=== PATIENT | female | born 1935 | race Caucasian/White ===

== ENCOUNTER 2016-10-18 06:29 | Day surgery (SDC) | payer MEDICARE, BC ==
[2016-10-13 13:28] VITALS: BMI 32.1
[~2016-10-18 06:29] MED LIST: LACTATED RINGERS 1,000 ML IV SCH
[2016-10-18 06:55] VITALS: RESP 16; TEMP 97.7
[2016-10-18] MEDS ORDERED: LIDOCAINE 1% 20 ML VIAL (10MG/ML) FOR IV START INTRADERMA ONE (07:03)
[2016-10-18 07:06] LABS: Glucose,Whole Blood 201 mg/dL (75-99)
[2016-10-18] MEDS ORDERED: TRIAMCINOLONE ACETONIDE 40 MG/ML 1 ML VIAL ONE (07:23)
[2016-10-18] MEDS ORDERED: BUPIVACAINE (PF) 0.5% 30 ML VIAL ONE (07:23)
[2016-10-18] MEDS ORDERED: MIDAZOLAM 2 MG/2 ML VIAL ONE (07:23)
[2016-10-18] MEDS ORDERED: fentaNYL (PF) 50 MCG/ML 2 ML AMP ONE (07:23)
--- NOTE | 2016-10-18 07:55 | FL ---
EXAMINATION TYPE: FL guided pain mgmt statistic DATE OF EXAM: 10/18/2016 7:51 AM HISTORY: Flouroscopy time 15 seconds of fluoroscopy provided. IMPRESSION: 1. Fluoroscopy time.
[2016-10-18] MEDS ORDERED: IV FLUID CONTINUATION 1,000 ML IV ONE (08:06)
[2016-10-18 08:12] VITALS: BP 145/86; PULSE 75
--- NOTE | 2016-10-18 09:06 | P.PCN ---
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 PROCEDURE DESCRIPTION: Patient presents for L3, L4 and L5 bilateral diagnostic medial branch blocks under fluoroscopic guidance. The procedure is performed using fluoroscopic guidance during needle placement to assure proper position and maximize safety. ANESTHESIA: Local with 1% lidocaine. Conscious sedation with Versed/fentanyl. EBL: Minimal PROCEDURE INDICATION: Patient with lumbar facet arthropathy signs and symptoms, here for diagnostic medial branch block. Pt does not take any blood thinning medications. PROCEDURE DESCRIPTION: The patient was seen and identified in the preoperative area. Risks, benefits, complications, and alternatives were discussed with the patient (including but not limited to incomplete pain relief, bleeding, infection, nerve damage, and allergies to medications), the patient agreed to proceed with the procedure and signed the consent after all questions were answered. Patient was taken to the OR and time out was completed to verify proper patient, position, laterality of pain, and allergies. Pt was placed in the prone position and a pillow was placed under the abdomen to reduce lumbar lordosis. The lumbosacral area was prepped and draped in the usual sterile fashion. Using oblique fluoroscopy, the eye of the "Elio dog" of right L4 vertebral body, which corresponds to the path of the medial branch originating from the level above, which is L3 in this case, was identified. Subsequently, a 22-gauge 3.5-inch spinal needle was inserted under fluoroscopic guidance toward the eye of the "Elio dog" of the right L4 vertebral body, corresponding to the junction of the superior articular process and the transverse process of the pedicle of the same level. After needle tip confirmation on lateral view and after negative aspiration for CSF and blood and without paresthesias, 1 mL of a 6 ml solution of 0.5% preservative-free bupivacaine and 40 mg Kenalog was injected. Subsequently the needle was withdrawn intact and the same procedure was repeated for the right L4, right L5, left L3, left L4, and left L5 medial branches which together with right L3 medial branch correspond to the sensory innervation of the bilateral L3-L4, L4-L5, and L5-S1 facet joints. Needle was withdrawn intact after each injection. At the end of the procedure, the skin was cleansed and bandages were applied. COMPLICATIONS: None. DISPOSITION/PLAN: The patient taken to the recovery area after the procedure in a stable condition for observation. Patient was reexamined prior to discharge and had >50 % relief of her back pain, but is now complaining of severe hip pain, and now gives history that this has worsened acutely over the course of the last two weeks without any inciting trauma, but given the level of her pain, I am concerned for possible hip fracture. Discussed situation with her daughter; I will discharge the patient from the outpatient recovery room and send her to the emergency room for further evaluation and possible imaging.
== END 2016-10-18 09:10 | disposition home or self-care (01) ==
LOC: ORPAIN 06:29
PROVIDERS: ATTEND Anesthesiology
DX: M47.816 Spondylosis without myelopathy or radiculopathy, lumbar region (principal); M47.817 Spondylosis without myelopathy or radiculopathy, lumbosacral region; M46.96 Unspecified inflammatory spondylopathy, lumbar region; M46.97 Unspecified inflammatory spondylopathy, lumbosacral region; E11.9 Type 2 diabetes mellitus without complications; Z79.82 Long term (current) use of aspirin; Z79.4 Long term (current) use of insulin; Z79.899 Other long term (current) drug therapy; Z91.09 Other allergy status, other than to drugs and biological substances
CPT/HCPCS: 96376; 96374; 96375; 99284; 36415; 93005; 72100; 73502; 64493; 64494; 64495; J2250; J2270; J3301; J3010

== ENCOUNTER 2016-10-18 09:12 | Emergency (ER) | payer MEDICARE, BC ==
[2016-10-18] MEDS ORDERED: MORPHINE SULFATE 4 MG/ML SYRINGE IV STA ×2 (10:54→13:04)
--- NOTE | 2016-10-18 11:51 | XR ---
EXAMINATION TYPE: XR Hip RT and AP Pelvis DATE OF EXAM: 10/18/2016 11:45 AM COMPARISON: NONE HISTORY: Pain TECHNIQUE: A single AP view of the pelvis is obtained. Two views of the right hip are obtained. FINDINGS: There is no acute fracture/dislocation evident in the pelvis. The hip and sacroiliac join ts appear symmetric and unremarkable. The overlying soft tissue appears unremarkable. Degenerative c hange of the spine noted. Vascular calcifications noted. Two views of right hip show no acute fracture or dislocation. No focal lytic or sclerotic lesion see n in the proximal right femur. The overlying soft tissue is unremarkable. Vascular calcifications an d arthropathy of the hips noted. IMPRESSION: 1. There is no acute fracture or dislocation in the pelvis or right hip. 2. Somewhat mottled pattern to the proximal femur. Correlate for history of malignancy. Follow-up bon e scan could be obtained in a short-term basis.
--- NOTE | 2016-10-18 11:53 | XR ---
EXAM TYPE: LUMBAR SPINE X RAY SERIES COMPARISON: NONE HISTORY: Pain FINDINGS: Severe degenerative disc disease at levels L3-S1 with minimal anterolisthesis of L3 and S1. Facet art hropathy noted. Mild to moderate degenerative disc disease L-1-L2 and L2-L3. Severe changes at T11-T1 2 and T12-L1. Pedicles intact. Vascular calcifications noted. Calcifications in right upper quadrant of the abdomen may represent gallstones. IMPRESSION: 1. Severe multilevel degenerative disc disease. Consider MRI follow-up. 2. Correlate for gallstones.
--- NOTE | 2016-10-18 11:55 | ED ---
General Adult HPI - General Chief complaint: Extremity Problem,Nontraumatic Stated complaint: PAIN, RADIATING BOTH LEGS, RT HIP PAIN Time Seen by Provider: 10/18/16 09:50 Source: patient, RN notes reviewed Mode of arrival: wheelchair Limitations: no limitations - History of Present Illness Initial comments: Patient a 1-year-old female with significant past medical history for chronic back pain, who presents emergency room today for the pain clinic with a chief complaint of increased pain to her lower back radiating to the right hip. She does admit that pain radiates all the way down the right leg than her toes. She admits that she also has pain radiating to the left posterior thigh at times. She states she's had some difficulty going to bathroom because of the pain. She states she had injections done earlier today at the pain clinic was advised come here for evaluation of her right hip. She states pain radiates rate into the right hip is worse with certain movements. Patient states she's been using Tylenol at home for pain with little relief in symptoms persist injections don't seem to be helping much at this time. She denies any bowel or bladder incontinence or retention. She denies any saddle anesthesia. Patient denies any recent fever, chills, shortness of breath, chest pain, abdominal pain , nausea or vomiting, dysuria or hematuria, constipation or diarrhea, headaches or visual changes, or any other complaints. - Related Data Home Medications Medication Instructions Recorded Confirmed Aspirin 81 mg PO DAILY 04/06/16 10/18/16 Cholecalciferol [Vitamin D3] 1,000 units PO DAILY 04/06/16 10/18/16 Docusate [Colace] 50 mg PO HS 04/06/16 10/18/16 Ferrous Sulfate [Iron (65 MG 325 mg PO DAILY 04/06/16 10/18/16 Elemental)] [place]-3 Fatty Acids/Fish Oil [Fish 1 cap PO DAILY 04/06/16 10/18/16 Oil 1,000 mg Softgel] Simvastatin [Zocor] 10 mg PO HS 04/06/16 10/18/16 Timolol 0.5% Ophth Soln [Timoptic 1 drop BOTH EYES BID 04/06/16 10/18/16 0.5% Ophth Soln] Acetaminophen Tab [Tylenol Tab] 1,000 mg PO Q6HR PRN 05/30/16 10/18/16 Insulin NPH Hum/Reg Insulin Hm 26 unit SQ BID-W/MEALS 10/13/16 10/18/16 [NovoLIN 70-30 100 UNIT/ML VIAL] Insulin NPH Hum/Reg Insulin Hm 30 unit SQ AC-SUPPER 10/13/16 10/18/16 [NovoLIN 70-30 100 UNIT/ML VIAL] Previous Rx's Medication Instructions Recorded Hydrocodone/Acetaminophen [[place] 1 each PO Q6HR PRN #20 tab 10/18/16 5-325] Lisinopril [Zestril] 5 mg PO DAILY #14 tab 10/18/16 Allergies Allergy/AdvReac Type Severity Reaction Status Date / Time Iodine and Iodide Containing Allergy Rash/Hives Verified 10/18/16 09:42 Produc Review of Systems ROS Statement: Those systems with pertinent positive or pertinent negative responses have been documented in the HPI. ROS Other: All systems not noted in ROS Statement are negative. Past Medical History Past Medical History: Diabetes Mellitus, Eye Disorder, Musculoskeletal Disorder , Osteoarthritis (OA) Additional Past Medical History / Comment(s): BACK PAIN WITH RADIATION RIGHT LEG , USING WALKER. Stopped medrol dose pack in May 2016. History of Any Multi-Drug Resistant Organisms: None Reported Past Surgical History: Back Surgery, Bladder Surgery, Hysterectomy, Orthopedic Surgery Additional Past Surgical History / Comment(s): mariela cataracts with lens implant, rt. thumb and wrist surgery, teeth removed, carpal tunnel surg. left and right, C-C7 fusion, pain clinic procedures. Past Anesthesia/Blood Transfusion Reactions: No Reported Reaction Past Psychological History: No Psychological Hx Reported Smoking Status: Never smoker Past Alcohol Use History: None Reported Past Drug Use History: None Reported - Past Family History Mother Family Medical History: No Reported History Father Family Medical History: Diabetes Mellitus General Exam - General Exam Comments Initial Comments: General: The patient is awake and alert, in no distress, and does not appear acutely ill. Eye: Pupils are equal, round and reactive to light, extra-ocular movements are intact. No nystagmus. There is normal conjunctiva bilaterally. No signs of icterus. Ears, nose, mouth and throat: There are moist mucous membranes and no oral lesions. Neck: The neck is supple, there is no tenderness or JVD. Cardiovascular: There is a regular rate and rhythm. No murmur, rub or gallop is appreciated. Respiratory: Lungs are clear to auscultation, respirations are non-labored, breath sounds are equal. No wheezes, stridor, rales, or rhonchi. Gastrointestinal: Soft, non-distended, non-tender abdomen without masses or organomegaly noted. There is no rebound or guarding present. No CVA tenderness. Bowel sounds are unremarkable. Musculoskeletal: No appearance of thoracic and lumbar spine. No step-offs deformity appreciated. No tenderness over the spinous processes. Patient does have paravertebral tenderness both on right and left side of the lower lumbar. Negative logroll maneuver. No tenderness over the right hip on palpation. Patient is able to bear weight and ambulate. Strength 5/5. Sensation intact. Pulses equal bilaterally 2+. Neurological: A&O x 3. CN II-XII intact, There are no obvious motor or sensory deficits. Coordination appears grossly intact. Speech is normal. Skin: Skin is warm and dry and no rashes or lesions are noted. Psychiatric: Cooperative, appropriate mood & affect, normal judgment. : [employer] H[employer]ard present for exam. Normal rectal tone. Limitations: no limitations Course Vital Signs 10/18/16 10/18/16 10/18/16 09:24 11:59 13:44 Temperature 97.6 F 97.9 F Pulse Rate 76 83 94 Respiratory 20 16 18 Rate Blood Pressure 163/74 200/91 175/78 O2 Sat by Pulse 98 98 98 Oximetry EKG Findings - EKG Comments: EKG Findings:: EKG performed at 1233: Shows normal sinus rhythm at 91 bpm. MA interval 160. QRS 138. QT/QTc 442/543. Evidence for a left bundle-branch block. Compared appears EKG on 09/10/2016 show no acute changes. Medical Decision Making - Medical Decision Making Patient's x-rays reviewed shows no acute abnormalities of the lumbar spine. This showed changes. Patient's x-ray of the right hip reviewed and does show possible sclerotic lesion in possibility of metastatic disease. Results discussed with attending physician Dr. wolfe and family members. Advised follow -up with family doctor for further imaging. Patient given prescription for an MRI of her back and she does admit to pain that radiates bilaterally. Patient had good rectal tone here in emergency room. No bowel or bladder incontinence retention. Patient has been ambulatory up and back to the bathroom multiple times. Patient blood pressure elevated here in the emergency room for greater than 200 over 80s. Patient does admit that she was on blood pressure medication in the past with Cipro. She states she had a cut down and eventually dropped because she was becoming too low with her blood pressure. She also admits that she was on a water pill time. Patient's blood pressure remained elevated here in the emergency room. Was dressed with family members. Was discussed about possibility of being due to pain. Patient will be given a prescription for lisinopril that she was on the past 5 mg. She does have a blood pressure cuff at home. She is advised follow-up the family doctor about blood pressure but use if blood pressure is elevated at home. Patient pain controlled here in the emergency room. Will be given a prescription of [place] to go home with for pain. She does admit that she felt dizzy for a few seconds to the emergency room. Had an EKG performed which showed normal sinus rhythm with a left bundle branch block compared to previous with no change. Is advised to return to emergency room if any symptoms increase or worsen or for new concerns. - Lab Data Lab Results 10/18/16 Range/Units 11:56 POC Glucose (mg/dL) 255 H (75-99) mg/dL POC Glu Brazer Resistance ID Liliana Curran Disposition Clinical Impression: Hip pain, Back pain Disposition: HOME SELF-CARE Condition: Good Instructions: Chronic Back Pain (ED) Additional Instructions: Please follow-up the family doctor over the next 1-2 days as discussed for further imaging about the right hip. Please use pressure medication if blood pressures elevated at home as discussed. Please follow-up family doctor about blood pressure as well. Please return here the emergency room if any symptoms increase or worsen. Please be aware that [place] may make you constipated and make you drowsy. Prescriptions: Hydrocodone/Acetaminophen [[place] 5-325] 1 each PO Q6HR PRN #20 tab PRN Reason: Pain Lisinopril [Zestril] 5 mg PO DAILY #14 tab Time of Disposition: 13:52
[2016-10-18 11:59] LABS: Glucose,Whole Blood 255 mg/dL (75-99)
[2016-10-18] MEDS ORDERED: hydrALAZINE HCL 20 MG/ML 1 ML VIAL IVP STA (13:04)
[2016-10-18 13:45] VITALS: BP 175/78; PULSE 94; RESP 18
[2016-10-18 13:48] VITALS: TEMP 97.9
== END 2016-10-18 14:20 | disposition home or self-care (01) ==
LOC: EC 09:12
DX: M54.5 Low back pain (principal); G89.29 Other chronic pain; M25.551 Pain in right hip; I10 Essential (primary) hypertension; E11.9 Type 2 diabetes mellitus without complications; M19.90 Unspecified osteoarthritis, unspecified site; M51.36 Other intervertebral disc degeneration, lumbar region; Z91.041 Radiographic dye allergy status; Z79.4 Long term (current) use of insulin; Z79.82 Long term (current) use of aspirin; Z79.899 Other long term (current) drug therapy
CPT/HCPCS: 99284; 96374; 96375; 96376; 36415; 93005; 72100; 73502; J2270

== ENCOUNTER → 2016-10-20 | Outpatient (CLI) | payer MEDICARE, BC ==
--- NOTE | 2016-10-23 09:44 | ECHOF ---
Referral Reason:Q25.3 aortic stenosis MEASUREMENTS -------- HEIGHT: 154.9 cm WEIGHT: 75.3 kg BP: 193/90 RVIDd: 2.4 cm (< 3.3) IVSd: 1.2 cm (0.6 - 1.1) LVIDd: 4.7 cm (3.9 - 5.3) LVPWd: 1.0 cm (0.6 - 1.1) IVSs: 1.5 cm LVIDs: 2.9 cm LVPWs: 1.3 cm LA Diam: 3.1 cm (2.7 - 3.8) LAESV Index (A-L): 24.05 ml/m Ao Diam: 2.8 cm (2.0 - 3.7) AV Cusp: 1.5 cm (1.5 - 2.6) LA Diam: 3.2 cm (2.7 - 3.8) MV EXCURSION: 11.540 mm (> 18.000) MV EF SLOPE: 14 mm/s (70 - 150) EPSS: 1.1 cm MV E Wily: 0.82 m/s MV DecT: 280 ms MV A Wily: 1.05 m/s MV E/A Ratio: 0.78 AV maxP.16 mmHg AV meanP.27 mmHg RAP: 5.00 mmHg RVSP: 21.84 mmHg FINDINGS -------- Sinus rhythm. This was a technically adequate study. The left ventricular size is normal. There is borderline concentric left ventricular hypertrophy. Overall left ventricular systolic function is normal with, an EF between 55 - 60 %. The right ventricle is normal in size. The left atrium is normal in size. Normal LA size by volume 22+/-6 ml/m2. The right atrium is normal in size. Aortic valve is trileaflet and is moderately thickened. There is moderate aortic stenosis present. Peak/mean gradient across the Aortic Valve is 22.16mmHg / 12.27mmHg. The mitral valve leaflets are mildly thickened. Mild mitral annular calcification present. There is trace to mild mitral regurgitation. Trace tricuspid regurgitation present. The pulmonic valve was not well visualized. The aortic root size is normal. Normal inferior vena cava with normal inspiratory collapse consistent with estimated right atrial pressure of 5 mmHg. There is no pericardial effusion. CONCLUSIONS -------- 1. Sinus rhythm. 2. There is moderate aortic stenosis present. 3. Peak/mean gradient across the Aortic Valve is 22.16mmHg / 12.27mmHg. 4. The mitral valve leaflets are mildly thickened. 5. Mild mitral annular calcification present. 6. There is trace to mild mitral regurgitation. 7. Trace tricuspid regurgitation present. 8. The pulmonic valve was not well visualized. 9. The aortic root size is normal. 10. There is no pericardial effusion. 11. This was a technically adequate study. 12. The left ventricular size is normal. 13. There is borderline concentric left ventricular hypertrophy. 14. Overall left ventricular systolic function is normal with, an EF between 55 - 60 %. 15. The right ventricle is normal in size. 16. Normal LA size by volume 22+/-6 ml/m2. 17. The right atrium is normal in size. 18. Aortic valve is trileaflet and is moderately thickened. MANAGER STUDY: Madelin Munoz RDCS
== END | disposition home or self-care (01) ==
LOC: RADECHMAIN 11:36
PROVIDERS: ATTEND Family Medicine
DX: I08.3 Combined rheumatic disorders of mitral, aortic and tricuspid valves (principal)
CPT/HCPCS: 93306

== ENCOUNTER → 2016-10-23 | Outpatient (CLI) | payer MEDICARE, BC | END | disposition home or self-care (01) | LOC: LABWHC1 07:21 | PROVIDERS: ATTEND Family Medicine | DX: N18.9 Chronic kidney disease, unspecified (principal) | CPT/HCPCS: 36415; 81050; 82575; 84156 ==

== ENCOUNTER → 2016-11-08 | Outpatient (CLI) | payer MEDICARE, BC ==
--- NOTE | 2016-11-09 08:43 | MR ---
EXAMINATION TYPE: MR lumbar spine wo con DATE OF EXAM: 11/08/2016 10:22 PM COMPARISON: 10/18/2016 x-ray lumbar spine, CT abdomen pelvis 09/10/2016 HISTORY: Low back pain getting worse since 05/2016 TECHNIQUE: Multiplanar, multisequence images of the lumbar spine were acquired. At T12-L1 there is moderate to severe degenerative disc disease. No canal stenosis or disc herniation . Neural foramina remain patent. L1-L2: Mild degenerative disc disease and circumferential disc bulging. No canal stenosis. Neural for ayush patent. L2-L3: Mild degenerative disc disease with facet arthropathy. There is circumferential disc bulging a nd mild bilateral foraminal encroachment. No Canal stenosis. Ligamentum flavum hypertrophy noted. L3-L4: Severe degenerative disc disease with a grade 1 anterolisthesis. There is a central and right paracentral broad-based disc herniation with severe compression of the thecal sac and canal stenosis. Marked hypertrophy of the ligamentum flavum and facet joints contribute and there is severe bilatera l foraminal encroachment with suspected nerve root impingement. Disc material appears to extend poste rior to the L3 vertebral body suggestive of extruded disc component. L4-L5: Severe degenerative disc disease with circumferential disc bulging facet arthropathy. Ligament um flavum hypertrophy with mild to moderate bilateral foraminal encroachment. Suspect a small extrude d disc fragment posterior to the lower margin of the L4 vertebral body paracentrally to the left. Mil d canal stenosis. L5-S1: Severe degenerative disc disease with central broad-based disc bulging and facet arthropathy. Moderate to severe bilateral foraminal encroachment and borderline canal stenosis Lumbar segments are intact. No paraspinal masses are identified. Conus medullaris has a normal appe arance. Distal common bile duct appears dilated measuring 1 cm. Prominence of the right renal collec ting system also noted and stable from recent CT scan. IMPRESSION: 1. Grade 1 anterolisthesis of L3 on L4 with severe degenerative disc disease. There is a central and right paracentral broad-based disc herniation with severe compression of the thecal sac and canal dania nosis. Disc material seen to extend superiorly behind the lower margin of the L3 vertebral body sugge stive of extruded disc material. Disc herniation extends far laterally by laterally with a greater in volvement on the right neural foramina and bilateral foraminal encroachment with nerve root impingem ent. 2. Disc bulging L4-L5 suspected small left paracentral extruded disc herniation extending posterior t o the lower margin of L4 vertebral body and mild canal stenosis. 3. Severe multilevel degenerative disc disease and multilevel canal stenosis. 4. The common bile duct measures 11 mm and appears to be dilated . 5. Fullness the collecting system greater on the right is stable from previous CT scan.
--- NOTE | 2016-11-09 08:43 | MR ---
EXAMINATION TYPE: MR hip RT wo con DATE OF EXAM: 11/08/2016 10:22 PM COMPARISON: X-ray dated 08/18/2017 HISTORY: HIP PAIN FOR 4 MONTHS Standard multiplanar, multisequence MRI departmental protocol Multiplanar, multisequence images of the right were acquired. Diffusion weighted imaging was performe d. FINDINGS: There is moderate concentric narrowing of the joint space with no evidence of erosive change. Finding s compatible osteoarthritis. No evidence of marrow edema or contusion. No evidence of osteonecrosis. There is be fairly symmetric muscular mild atrophy. Area of increased signal in the subcutaneous tiss ues in along the right hip is nonspecific edema. Does appear to be additional soft tissue edema near the greater trochanter correlate for trochanteric bursitis. Findings suggest chronic acetabular labral tears. Within the pelvis no soft tissue mass is seen. IMPRESSION: 1. Correlate for trochanteric bursitis 2. Moderate osteoarthritis with findings suggestive of chronic labral tear.
== END | disposition home or self-care (01) ==
LOC: RADMRIMAIN 20:38
PROVIDERS: ATTEND Physician Assistant
DX: M16.11 Unilateral primary osteoarthritis, right hip (principal); M48.06 Spinal stenosis, lumbar region; M51.26 Other intervertebral disc displacement, lumbar region; M43.16 Spondylolisthesis, lumbar region; M51.36 Other intervertebral disc degeneration, lumbar region
CPT/HCPCS: 72148

== ENCOUNTER 2016-11-29 07:43 | Inpatient (IN) | payer MEDICARE, BC ==
[2016-11-29] MEDS ORDERED: SODIUM CHLORIDE 0.9% 1,000 ML IV STA (08:16)
[2016-11-29] MEDS ORDERED: HYDROmorphone 1 MG/ML 1 ML SYRINGE IVP STA ×2 (08:16→09:47)
[2016-11-29 08:40] LABS: Basophils % (A) 0 %; CH 31.9; CHCM 33.5; Eosinophils # (A) 0.1 k/uL (0-0.7); Eosinophils % (A) 1 %; HCT 36.2 % (34.0-46.0); HDW 2.68; HGB 11.9 gm/dL (11.4-16.0); Luc # (Auto) 0.35; Luc % (Auto) 3; Lymphocytes # (A) 3.1 k/uL (1.0-4.8); Lymphocytes % (A) 30 %; MCH 31.4 pg (25.0-35.0); MCHC 32.8 g/dL (31.0-37.0); MCV 95.7 fL (80.0-100.0); Mean Platelet Volume 6.3; Monocytes # (A) 0.6 k/uL (0-1.0); Monocytes % (A) 5 %; Neutrophils # (A) 6.3 k/uL (1.3-7.7); Neutrophils % (A) 60 %; RBC 3.78 m/uL (3.80-5.40); RDW 13.1 % (11.5-15.5); WBC 10.4 k/uL (3.8-10.6); WBC (Perox) 10.54
--- NOTE | 2016-11-29 08:55 | ED ---
Back Pain HPI - General Chief Complaint: Back Pain/Injury Stated Complaint: back pain Time Seen by Provider: 11/29/16 08:03 Source: patient, RN notes reviewed Limitations: no limitations - History of Present Illness Initial Comments: 81-year-old female presents emergency Department chief complaint of back pain. Patient is suffering from this back pain for the past 6 months or so. Patient probably had a MRI that did show some disc herniation was given follow-up to Dr. Wang. Patient states her last today she's just been manual to get around the house. She states that she is having so much pain she can barely lift her legs at this time. She was placed symmetrical but these are not helping. Patient states the pain is worse in the last 2 days it has been throughout the rest of her illness. Patient states she was concerned due to the continued worsening of the symptoms and the fact that she is unable to get around her house due to that her increasing pain so she left that she should be evaluated. Patient denies any loss of bowel or bladder function or any saddle anesthesia. Patient denies any recent fever, chills, shortness of breath, chest pain, abdominal pain, nausea vomiting, numbness or tingling, dysuria or hematuria, constipation or diarrhea, headaches or visual changes, or any other current symptoms. - Related Data Home Medications Medication Instructions Recorded Confirmed Aspirin 81 mg PO DAILY 04/06/16 11/29/16 Cholecalciferol [Vitamin D3] 1,000 units PO DAILY 04/06/16 11/29/16 Docusate [Colace] 50 mg PO HS 04/06/16 11/29/16 Ferrous Sulfate [Iron (65 MG 325 mg PO DAILY 04/06/16 11/29/16 Elemental)] [place]-3 Fatty Acids/Fish Oil [Fish 1 cap PO DAILY 04/06/16 11/29/16 Oil 1,000 mg Softgel] Simvastatin [Zocor] 10 mg PO HS 04/06/16 11/29/16 Timolol 0.5% Ophth Soln [Timoptic 1 drop BOTH EYES BID 04/06/16 11/29/16 0.5% Ophth Soln] Acetaminophen Tab [Tylenol Tab] 1,000 mg PO Q6HR PRN 05/30/16 11/29/16 Insulin NPH Hum/Reg Insulin Hm 26 unit SQ BID-W/MEALS 10/13/16 11/29/16 [NovoLIN 70-30 100 UNIT/ML VIAL] Insulin NPH Hum/Reg Insulin Hm 30 unit SQ AC-SUPPER 10/13/16 11/29/16 [NovoLIN 70-30 100 UNIT/ML VIAL] Hydrocodone/Acetaminophen [[place] 1 tab PO Q6HR PRN 11/29/16 11/29/16 5-325] Previous Rx's Medication Instructions Recorded Lisinopril [Zestril] 5 mg PO DAILY #14 tab 10/18/16 Allergies Allergy/AdvReac Type Severity Reaction Status Date / Time Iodine and Iodide Containing Allergy Rash/Hives Verified 11/29/16 07:59 Produc Review of Systems ROS Statement: Those systems with pertinent positive or pertinent negative responses have been documented in the HPI. ROS Other: All systems not noted in ROS Statement are negative. Past Medical History Past Medical History: Diabetes Mellitus, Eye Disorder, Musculoskeletal Disorder , Osteoarthritis (OA) Additional Past Medical History / Comment(s): BACK PAIN WITH RADIATION RIGHT LEG , USING WALKER. Stopped medrol dose pack in May 2016. History of Any Multi-Drug Resistant Organisms: None Reported Past Surgical History: Back Surgery, Bladder Surgery, Hysterectomy, Orthopedic Surgery Additional Past Surgical History / Comment(s): mariela cataracts with lens implant, rt. thumb and wrist surgery, teeth removed, carpal tunnel surg. left and right, C-C7 fusion, pain clinic procedures. Past Anesthesia/Blood Transfusion Reactions: No Reported Reaction Past Psychological History: No Psychological Hx Reported Smoking Status: Never smoker Past Alcohol Use History: None Reported Past Drug Use History: None Reported - Past Family History Mother Family Medical History: No Reported History Father Family Medical History: Diabetes Mellitus General Exam Limitations: no limitations General appearance: alert, in distress (Monitor) Head exam: Present: atraumatic, normocephalic, normal inspection ENT exam: Present: normal exam, mucous membranes moist Neck exam: Present: normal inspection. Absent: tenderness, meningismus, lymphadenopathy Respiratory exam: Present: normal lung sounds bilaterally. Absent: respiratory distress, wheezes, rales, rhonchi, stridor Cardiovascular Exam: Present: regular rate, normal rhythm, normal heart sounds. Absent: systolic murmur, diastolic murmur, rubs, gallop, clicks Back exam: Present: normal inspection, tenderness (Diffusely to the lower area) . Absent: full ROM (Limited due to pain) Expanded Back exam: Present: other (Patient refuses rectal exam) Back exam: Sciatic Notch Tenderness: Left, Right, Positive Straight Leg Raise: Left, Right Neurological exam: Present: alert, oriented X3, CN II-XII intact. Absent: motor sensory deficit Psychiatric exam: Present: normal affect, normal mood Skin exam: Present: warm, dry, intact, normal color. Absent: rash Course Vital Signs 11/29/16 11/29/16 11/29/16 07:49 08:35 09:42 Temperature 97.9 F Pulse Rate 66 72 66 Respiratory 18 18 16 Rate Blood Pressure 200/86 184/130 154/67 O2 Sat by Pulse 97 100 98 Oximetry - Reevaluation(s) Reevaluation #1: 11/29/16 10:11 Patient reassessed and still having intractable back pain. Medical Decision Making - Medical Decision Making 81-year-old female presents emergency Department chief complaint of back pain. It isn't patient continues to have intractable back pain. Lab work is reviewed that does not show any acute findings. Patient continues to refuse the rectal. This and the case was discussed with Dr. Mendes and the patient will be admitted. We will consult Dr. Echols of the patient's back doctor as well. Patient is in agreement with the plan. All questions have been answered. - Lab Data Result diagrams: 11/29/16 08:32 11/29/16 08:32 Lab Results 11/29/16 11/29/16 11/29/16 Range/Units 08:32 08:32 09:43 WBC 10.4 (3.8-10.6) k/uL RBC 3.78 L (3.80-5.40) m/uL Hgb 11.9 (11.4-16.0) gm/dL Hct 36.2 (34.0-46.0) % MCV 95.7 (80.0-100.0) fL MCH 31.4 (25.0-35.0) pg MCHC 32.8 (31.0-37.0) g/dL RDW 13.1 (11.5-15.5) % Plt Count 546 H (150-450) k/uL Neutrophils % 60 % Lymphocytes % 30 % Monocytes % 5 % Eosinophils % 1 % Basophils % 0 % Neutrophils # 6.3 (1.3-7.7) k/uL Lymphocytes # 3.1 (1.0-4.8) k/uL Monocytes # 0.6 (0-1.0) k/uL Eosinophils # 0.1 (0-0.7) k/uL Basophils # 0.0 (0-0.2) k/uL Sodium 145 (137-145) mmol/L Potassium 4.3 (3.5-5.1) mmol/L Chloride 104 (98-107) mmol/L Carbon Dioxide 26 (22-30) mmol/L Anion Gap 15 mmol/L BUN 18 H (7-17) mg/dL Creatinine 1.31 H (0.52-1.04) mg/dL Est GFR (MDRD) Af Amer 47 (>60 ml/min/1.73 sqM) Est GFR (MDRD) Non-Af 39 (>60 ml/min/1.73 sqM) Glucose 145 H (74-99) mg/dL Calcium 9.8 (8.4-10.2) mg/dL Total Bilirubin 0.5 (0.2-1.3) mg/dL AST 15 (14-36) U/L ALT 19 (9-52) U/L Alkaline Phosphatase 67 (38-126) U/L Total Protein 7.6 (6.3-8.2) g/dL Albumin 4.2 (3.5-5.0) g/dL Urine Color Light Yellow Urine Appearance Clear (Clear) Urine pH 7.5 (5.0-8.0) Ur Specific [place] 1.004 (1.001-1.035) Urine Protein Negative (Negative) Urine Glucose (UA) Negative (Negative) Urine Ketones Negative (Negative) Urine Blood Negative (Negative) Urine Nitrate Negative (Negative) Urine Bilirubin Negative (Negative) Urine Urobilinogen <2.0 (<2.0) mg/dL Ur Leukocyte Esterase Negative (Negative) Disposition Clinical Impression: Lumbar disc herniation, Intractable back pain Disposition: ADMITTED IP TO THIS [facility] Condition: Stable Time of Disposition: 10:53 Decision Date: 11/29/16 Decision Time: 10:53
[2016-11-29 08:56] LABS: Calcium 9.8 mg/dL (8.4-10.2); Potassium 4.3 mmol/L (3.5-5.1); Total Bilirubin 0.5 mg/dL (0.2-1.3); Total Protein 7.6 g/dL (6.3-8.2)
[2016-11-29 10:00] LABS: Appearance,Urine Clear (Clear); Bilirubin,Urine Negative (Negative); Glucose,Urine (UA) Negative (Negative); Ketones,Urine Negative (Negative); Leukocyte Esterase,Urine Negative (Negative); Nitrite,Urine Negative (Negative); PH, Urine 7.5 (5.0-8.0); Protein,Urine Negative (Negative); Specific Gravity,Urine 1.004 (1.001-1.035); UA Billing (MACRO vs. MICRO) CHEM; Urobilinogen,Urine <2.0 mg/dL (<2.0)
[2016-11-29] MEDS ORDERED: HYDROcodone/APAP 5-325MG 1 EACH TAB PO PRN (10:53)
[2016-11-29] MEDS ORDERED: ONDANSETRON 4 MG/2 ML VIAL IVP PRN (10:53)
[2016-11-29] MEDS ORDERED: ACETAMINOPHEN TAB 325 MG TAB PO PRN (10:53)
[2016-11-29] MEDS ORDERED: HYDROmorphone 1 MG/ML 1 ML SYRINGE IV PRN (10:53)
[2016-11-29] MEDS ORDERED: NALOXONE 0.4 MG/ML 1 ML VIAL IV PRN (10:53)
[2016-11-29 11:19] LABS: Hemoglobin A1C 7.3 % (4.2-6.1)
[2016-11-29 11:57] LABS: Glucose,Whole Blood 136 mg/dL (75-99)
[2016-11-29] MEDS: INSULIN LISPRO (humaLOG) 300 UNIT/3 ML VIAL SQ SCH ×3 (12:07→20:14)
[2016-11-29] MEDS: PANTOPRAZOLE 40 MG/10 ML VIAL IVP SCH (14:35)
[2016-11-29] MEDS ORDERED: HYDROcodone/APAP 7.5-325MG 1 EACH TAB PO PRN (16:08)
[2016-11-29] MEDS ORDERED: CYCLOBENZAPRINE 5 MG TAB PO PRN (16:13)
--- NOTE | 2016-11-29 16:43 | P.HPIM ---
History of Present Illness H&P Date: 11/29/16 Chief Complaint: Severe irretractable, low back pain This is an 81-year-old female well-known to Dr. Brink who presented to the emergency room today complaining of some severe low back pain she was brought to the hospital via ambulance. Her granddaughter is with her both the patient and her granddaughter or extremely irate with the emergency room staff and the emergency room physician and in fact got very irate with me. However, I did review a CAT scan dated November 08 I believe and this was suggestive of severe lumbar radiculopathy , the [facility] and is unavailable at this moment at the hospital This patient had an appointment for an evaluation with Dr. Brown for this Sunday. This patient was on a full to make it to the appointment secondary to severe pain. Review of Systems Constitutional: Reports as per HPI Ears, nose, mouth and throat: Reports as per HPI Cardiovascular: Reports as per HPI Respiratory: Reports as per HPI Gastrointestinal: Reports as per HPI Genitourinary: Reports as per HPI Menstruation: Reports postmenopausal Musculoskeletal: Reports leg numbness/tingling, Reports low back pain Integumentary: Reports as per HPI Neurological: Reports as per HPI Psychiatric: Reports as per HPI Past Medical History Past Medical History: Diabetes Mellitus, Eye Disorder, Musculoskeletal Disorder , Osteoarthritis (OA) Additional Past Medical History / Comment(s): BACK PAIN WITH RADIATION BILATERAL LEGS, herniated discs, IDDM type II, CKD stage III, slight cardiac murmur, seasonal allergies, arthritis multiple joints. History of Any Multi-Drug Resistant Organisms: None Reported Past Surgical History: Back Surgery, Bladder Surgery, Hysterectomy, Orthopedic Surgery Additional Past Surgical History / Comment(s): mariela cataracts with lens implant, rt. thumb and wrist surgery, teeth removed, carpal tunnel surg. left and right, cervical fusion, multiple pain clinic procedures. Past Anesthesia/Blood Transfusion Reactions: No Reported Reaction Past Psychological History: No Psychological Hx Reported Additional Psychological History / Comment(s): Pt resides alone in her apartment. She uses a walker and recently due to pain she has been transferring herself into a wheelchair. She has no home care services. Smoking Status: Never smoker Past Alcohol Use History: None Reported Past Drug Use History: None Reported - Past Family History Mother History Unknown: Yes Family Medical History: No Reported History Father Family Medical History: Diabetes Mellitus Medications and Allergies Home Medications Medication Instructions Recorded Confirmed Type Aspirin 81 mg PO DAILY 04/06/16 11/29/16 History Cholecalciferol [Vitamin D3] 1,000 units PO DAILY 04/06/16 11/29/16 History Docusate [Colace] 50 mg PO HS 04/06/16 11/29/16 History Ferrous Sulfate [Iron (65 MG 325 mg PO DAILY 04/06/16 11/29/16 History Elemental)] [place]-3 Fatty Acids/Fish Oil [Fish 1 cap PO DAILY 04/06/16 11/29/16 History Oil 1,000 mg Softgel] Simvastatin [Zocor] 10 mg PO HS 04/06/16 11/29/16 History Timolol 0.5% Ophth Soln [Timoptic 1 drop BOTH EYES BID 04/06/16 11/29/16 History 0.5% Ophth Soln] Acetaminophen Tab [Tylenol Tab] 1,000 mg PO Q6HR PRN 05/30/16 11/29/16 History Insulin NPH Hum/Reg Insulin Hm 26 unit SQ BID-W/MEALS 10/13/16 11/29/16 History [NovoLIN 70-30 100 UNIT/ML VIAL] Insulin NPH Hum/Reg Insulin Hm 30 unit SQ AC-SUPPER 10/13/16 11/29/16 History [NovoLIN 70-30 100 UNIT/ML VIAL] Hydrocodone/Acetaminophen [[place] 1 tab PO Q6HR PRN 11/29/16 11/29/16 History 5-325] Allergies Allergy/AdvReac Type Severity Reaction Status Date / Time Iodine and Iodide Containing Allergy Rash/Hives Verified 11/29/16 07:59 Produc Physical Exam Osteopathic Statement: *. No significant issues noted on an osteopathic structural exam other than those noted in the History and Physical/Consult. Vitals: Vital Signs Temp Pulse Resp BP Pulse Ox 11/29/16 12:56 81 18 11/29/16 12:53 98.0 F 81 18 101/55 97 Intake and Output 11/29/16 11/29/16 11/29/16 06:59 14:59 22:59 Other: # Voids 1 Weight 75 kg Patient Weight 11/30/16 06:59 Weight 75 kg General: [Patient awake, alert and oriented times 3. Patient in no acute distress.] HEENT: [PERRL. EOMI. No pharyngeal erythema or exudate.] Neck: [No adenopathy.] Cardiac: [Heart regular in rate and rhythm. No S3. No S4. No clicks, rubs. No murmur.] Lungs: [Clear to auscultation bilaterally.] Abdomen: [No mass. No organomegaly. Bowel sounds presnt and normoactive in all 4 quadrants.] Extremes: Patient has severe pain shooting down both legs primarily on the right , patient has diminished patellar reflexes bilaterally Musculoskeletal: [No joint erythema, edema, patient complains of severe low back pain was unable to tolerate it at home Skin: [No rash.] Neurologic: [No lateralizing deficits. CN II - XII grossly intact.] Lymphatic: [No adenopathy.] Results CBC & Chem 7: 11/29/16 08:32 11/29/16 08:32 Labs: Abnormal Lab Results - Last 24 Hours (Table) 11/29/16 Range/Units 11:53 POC Glucose (mg/dL) 136 H (75-99) mg/dL Thrombosis Risk Factor Assmnt - Choose All That Apply Any of the Below Risk Factors Present?: Yes Each Factor Represents 1 point: Medical pt on bed rest, Obesity (BMI >25) Other Risk Factors: Yes Each Risk Factor Represents 2 Points: Patient confined to bed Each Risk Factor Represents 3 Points: Age 75 years or older Other congenital or acquired thrombophilia - If yes, enter type in comment: No Thrombosis Risk Factor Assessment Total Risk Factor Score: 7 Thrombosis Risk Factor Assessment Level: High Risk Assessment and Plan (1) Intractable back pain Narrative/Plan: Her low back pain patient is getting Dilaudid IV push 2 mg every 3 hours, she is getting [place] 7.5/325 mg 1 by mouth every 6 hours as needed for pain And her spasm is being relieved by Flexeril 5 mg 1 by mouth Status: Acute (2) Lumbar disc herniation Narrative/Plan: Consultation with Dr. Wang for evaluation and treatment of lumbar ruptured lumbar disc Status: Acute
--- NOTE | 2016-11-29 16:59 | P.CNOR ---
History of Present Illness - [facility] Consult date: 11/29/16 Consult reason: low back pain, other (Bilateral lower extremity radiculopathy and weakness) History of present illness: The patient is a very pleasant 81-year-old female who is having severe low back pain and lower extremity pain. The patient is seen and examined today at bedside accompanied by her granddaughter. Apparently she has been having worsening pain over the past month at her back and lower extremities and has gotten to the point where she is completely incapacitated due to her pain. She is unable to get out of bed. She is unable to get up to urinate her use the bathroom. She is unable to walk on her own. She had initially started having pain at the end of last year back in June and she was being treated conservatively for issues at her back and her hips. She continued conservative treatment but then this year at the end of October and November she was having severe worsening of her symptoms. She is having pain at her back and lower extremities to the point where she was receiving interventional pain management. Despite conservative treatment she was continued have worsening pain and inability to ambulate and mobilize. She presented to the emergency room and was then referred to continued outpatient management. She had an MRI of her lumbar spine which showed a large disc herniation at L3 4 which correlated well with her pain. She was having significant pain in her back down her legs and into her hip but her primary issues seem to stem from her lumbar spine. Today she is having severe worsening of her symptoms was a unable to get out of bed. She felt she was having some weakness in her thighs bilaterally. She is not having any incontinence to bowel. She was having some mild urinary retention but is difficult to determine if this is due to her pain. She denies any fevers chills or night sweats. She denies any history of similar issues in the past. Here in Hospital she has been receiving pain medications regularly. She's not having any improvement in her symptoms overall. Review of Systems Denies chest pain shortness of breath. Denies fevers chills night sweats. Denies any urinary changes of burning or frequency. She says she has had some difficulty voiding but is difficult to determine if this is due to pain. She feels weak in her bilateral lower extremities but is difficult to determine if this is due to pain or specific weakness. She has not been incontinent any bowel issues. She is no pain at her neck or upper extremity. She has been through cervical treatment and interventional pain management without relief. Past Medical History Past Medical History: Diabetes Mellitus, Eye Disorder, Musculoskeletal Disorder , Osteoarthritis (OA) Additional Past Medical History / Comment(s): BACK PAIN WITH RADIATION BILATERAL LEGS, herniated discs, IDDM type II, CKD stage III, slight cardiac murmur, seasonal allergies, arthritis multiple joints. History of Any Multi-Drug Resistant Organisms: None Reported Past Surgical History: Back Surgery, Bladder Surgery, Hysterectomy, Orthopedic Surgery Additional Past Surgical History / Comment(s): mariela cataracts with lens implant, rt. thumb and wrist surgery, teeth removed, carpal tunnel surg. left and right, cervical fusion, multiple pain clinic procedures. Past Anesthesia/Blood Transfusion Reactions: No Reported Reaction Past Psychological History: No Psychological Hx Reported Additional Psychological History / Comment(s): Pt resides alone in her apartment. She uses a walker and recently due to pain she has been transferring herself into a wheelchair. She has no home care services. Smoking Status: Never smoker Past Alcohol Use History: None Reported Past Drug Use History: None Reported - Past Family History Mother History Unknown: Yes Family Medical History: No Reported History Father Family Medical History: Diabetes Mellitus Medications and Allergies Home Medications Medication Instructions Recorded Confirmed Type Aspirin 81 mg PO DAILY 04/06/16 11/29/16 History Cholecalciferol [Vitamin D3] 1,000 units PO DAILY 04/06/16 11/29/16 History Docusate [Colace] 50 mg PO HS 04/06/16 11/29/16 History Ferrous Sulfate [Iron (65 MG 325 mg PO DAILY 04/06/16 11/29/16 History Elemental)] [place]-3 Fatty Acids/Fish Oil [Fish 1 cap PO DAILY 04/06/16 11/29/16 History Oil 1,000 mg Softgel] Simvastatin [Zocor] 10 mg PO HS 04/06/16 11/29/16 History Timolol 0.5% Ophth Soln [Timoptic 1 drop BOTH EYES BID 04/06/16 11/29/16 History 0.5% Ophth Soln] Acetaminophen Tab [Tylenol Tab] 1,000 mg PO Q6HR PRN 05/30/16 11/29/16 History Insulin NPH Hum/Reg Insulin Hm 26 unit SQ BID-W/MEALS 10/13/16 11/29/16 History [NovoLIN 70-30 100 UNIT/ML VIAL] Insulin NPH Hum/Reg Insulin Hm 30 unit SQ AC-SUPPER 10/13/16 11/29/16 History [NovoLIN 70-30 100 UNIT/ML VIAL] Hydrocodone/Acetaminophen [[place] 1 tab PO Q6HR PRN 11/29/16 11/29/16 History 5-325] Allergies Allergy/AdvReac Type Severity Reaction Status Date / Time Iodine and Iodide Containing Allergy Rash/Hives Verified 11/29/16 07:59 Produc Physical Examination Osteopathic Statement: *. No significant issues noted on an osteopathic structural exam other than those noted in the History and Physical/Consult. - L Spine: dermatomal strength & reflexes bilateral Strength: hip flexion: 4/5 (At her back skin is clear. There is no open wounds lacerations. She has severe difficulty with any severe change of position in bed. She has difficulty trying to lift her legs up off the bed. She has weakness with hip flexion bilaterally. She does have very coy strength due to pain. It is somewhat difficult to assess fully due to her severe pain. She had does not have any hyperreflexia. Her thighs and calves are soft and nontender. She has no saddle paresthesias. She has sustained dorsal flexion plantarflexion and EHL with 5 out of 5 strength there. She is no pain with internal/external rotation of her hips. Abdomen soft nontender. Chest has good excursion deep inspection expiration. Her upper extremity full active and passive range of motion. Her neck has no stiffness or tenderness. She has full active and passive range motion in her neck.) Results - Labs Labs: Abnormal Lab Results - Last 24 Hours (Table) 11/29/16 Range/Units 11:53 POC Glucose (mg/dL) 136 H (75-99) mg/dL Result Diagrams: 11/29/16 08:32 11/29/16 08:32 - Diagnostic results Lumbar MRI with/without contrast: report reviewed (I reviewed the patient's MRI from earlier this month in November of her lumbar spine. She has severe disc degeneration L3 4 L4 5 and L5-S1 she has a very large disc herniation with extruded fragment and cephalad migration at L34 with severe stenosis centrally and at the bilateral neural foramen. She has disc protrusion L4 5 and L5-S1 with some bilateral foraminal encroachment. There is no apparent fracture.), image reviewed Assessment and Plan Plan: Large extruded disc herniation L3 4, acute Severe central and bilateral foraminal stenosis L3 4 Low back pain with bilateral lower extremity radiculopathy Bilateral lower extremity weakness due to disc herniation at L3 4 Degenerative disc disease L3 4 L4 5 L5-S1 Incapacitating low back pain Failed conservative treatment The patient has been having worsening symptoms at her back and lower extremities which seems due to the large disc herniation at L3 4. This seems to be a new change for her as she does have significant chronic changes L3 4 L4 5 and L5-S1. It is likely that her condition worsened and she sustained a extruded disc herniation which is causing her incapacitating symptoms at this point. She is having some weakness at her lower extremities and questionable bladder changes. She has been through some conservative treatment however she has been having worsening despite aggressive conservative care including medications time and interventional pain management. Her MRI correlates well with her lower extremity and lumbar symptoms and I think that she is a candidate for decompression surgery at L3 4 with laminectomy decompression L3 4 with discectomy. We discussed the nature of her issues with her at length. We discussed nature of conservative treatment and the possibility of surgical intervention. The patient is having worsening symptoms despite conservative care and she is interested in pursuing surgery as soon as possible. With her weakness in her urinary difficulties I think that it is worthwhile to proceed with surgery sooner rather than later. I would plan to perform laminectomy decompression with discectomy at L3 4. She does have a number of degenerative changes at her lumbar spine but I would not plan to pursue fusion or a dress issues at L4 5 or L5-S1 at this point. Her acute severe issues appear to be stemming from L3 4 with the large disc herniation at that level and I think it is best to intervene at that level alone. I discussed the risk, patient's alternatives and benefits of surgery at length with her. We discussed the risk of bleeding, risk of infection, risk of need for further surgery risk of decreased or loss of motion loss of functio, nerve damage paralysis heart attack blindness and was all spine to her as well as the fact that surgery may not alleviate her symptoms was explained. The patient is interested in proceeding with surgery and will sign informed consent. I discussed the matter with the primary care service with Dr. Mendes and he is in agreement. We will try to pursue surgery on tomorrow. She'll be nothing by mouth after midnight. Time with Patient: Greater than 30
[2016-11-29 17:05] LABS: Glucose,Whole Blood 143 mg/dL (75-99)
[2016-11-29] MEDS: HYDROmorphone 2 MG/ML 1 ML SYRINGE IVP PRN ×2 (17:34→21:05)
[2016-11-29 20:11] LABS: Glucose,Whole Blood 167 mg/dL (75-99)
[2016-11-29] MEDS: ATORVASTATIN 10 MG TAB PO SCH (20:14)
[2016-11-29] MEDS: DOCUSATE ORAL SOLN 100 MG/10 ML CUP PO SCH (20:14)
[2016-11-30] MEDS: HYDROmorphone 2 MG/ML 1 ML SYRINGE IVP PRN ×5 (00:40→15:08)
[2016-11-30 07:00] LABS: Glucose,Whole Blood 182 mg/dL (75-99)
[2016-11-30 07:36] LABS: Basophils % (A) 0 %; CHCM 31.1; Eosinophils # (A) 0.1 k/uL (0-0.7); Eosinophils % (A) 1 %; HCT 33.1 % (34.0-46.0); HDW 2.55; HGB 10.3 gm/dL (11.4-16.0); Hypochromasia Slight; Luc # (Auto) 0.34; Luc % (Auto) 4; Lymphocytes % (A) 30 %; MCH 31.2 pg (25.0-35.0); MCHC 31.1 g/dL (31.0-37.0); MCV 100.2 fL (80.0-100.0); Mean Platelet Volume 6.4; Monocytes # (A) 0.6 k/uL (0-1.0); Monocytes % (A) 6 %; Neutrophils # (A) 5.9 k/uL (1.3-7.7); Neutrophils % (A) 59 %; WBC 9.9 k/uL (3.8-10.6); WBC (Perox) 10.44
[2016-11-30 07:46] LABS: Calcium 8.9 mg/dL (8.4-10.2); Potassium 4.6 mmol/L (3.5-5.1)
[2016-11-30] MEDS: INSULIN LISPRO (humaLOG) 300 UNIT/3 ML VIAL SQ SCH ×4 (07:51→22:35)
[2016-11-30] MEDS: ASPIRIN 81 MG CHEW PO SCH (07:52)
[2016-11-30] MEDS: TIMOLOL 0.5% OPHTH DROPS 5 ML BTL BOTH EYES SCH ×2 (07:57→22:35)
[2016-11-30] MEDS: PANTOPRAZOLE 40 MG/10 ML VIAL IVP SCH (07:57)
[2016-11-30] MEDS: LISINOPRIL 5 MG TAB PO SCH (08:00)
[2016-11-30] MEDS ORDERED: BACITRACIN 50,000 UNIT, POLYMYXIN B 500,000 UNIT in SODIUM CHLORIDE 0.9% IRRIGATIO 1,00... IRRIGATION ONE (08:30)
[2016-11-30] MEDS ORDERED: NON-FORMULARY DRUG (Omega-3 Fatty Acids/Fish Oil [Fish Oil 1,000 Mg Softgel] 1 CAP) PO SCH (09:00)
[2016-11-30] MEDS: LIDOCAINE 5% PATCH TOPICAL SCH (10:54)
--- NOTE | 2016-11-30 11:45 | P.CON ---
Consult Note - . Consult date: 11/30/16 Assessment/Plan:: Consult seen and acknowledged. Chart reviewed, and patient already added to OR schedule for laminectomy and discectomy with Dr. Wang later on this afternoon, so will sign off. Please re-consult if there are any further questions.
[2016-11-30 12:34] LABS: Glucose,Whole Blood 176 mg/dL (75-99)
[2016-11-30] MEDS: CHOLECALCIFEROL 1,000 UNIT TAB PO SCH (13:32)
[2016-11-30] MEDS: FERROUS SULFATE 325 MG TAB PO SCH (13:32)
[2016-11-30] MEDS: SODIUM CHLORIDE 0.9% 1,000 ML IV SCH ×3 (13:34→22:34)
[2016-11-30 14:29] VITALS: BMI 31.2
--- NOTE | 2016-11-30 15:29 | P.PN ---
Subjective Principal diagnosis: Lumbar disc herniation Patient is an 81-year-old female, patient of Dr. Brink in the outpatient setting admitted with severe low back pain, weakness, and bilateral lower extremity radiculopathy. Patient was found to have evidence of an acute large extruded disc herniation at L3 4 with chronic changes at L3 4 L4 5 and L5- S1. Patient has been evaluated by orthopedic service and is scheduled for decompression surgery at L3 4 with laminectomy decompression L3 4 with discectomy today. Upon examination, patient is lying in bed. Patient is very tearful and reports her back pain a 10 out of 10 at rest and minimal movement. Patient denies chills, fevers, recent illness, trauma, shortness of breath, chest pain, abdominal pain, urinary incontinence, constipation or diarrhea. Objective - Vital Signs Vital signs: Vital Signs Temp 98.3 F 11/30/16 11:13 Pulse 80 11/30/16 11:57 Resp 14 11/30/16 11:57 BP 139/62 11/30/16 11:13 Pulse Ox 97 11/30/16 11:13 Intake & Output 11/29/16 11/30/16 11/30/16 18:59 06:59 18:59 Intake Total 240 Balance 240 Weight 75 kg 75 kg Intake: Oral 240 Other: # Voids 1 1 2 - Exam GENERAL: Pt awake and alert, well-nourished, appears in mild distress. HEAD: Atraumatic, normocephalic. EYES: Pupils equal and round. Sclera anicteric, conjunctiva are normal. ENT: Moist mucous membranes. NECK:Supple without lymphadenopathy or JVD. LUNGS: Breath sounds clear to auscultation bilaterally. No wheezes, rales, or rhonchi. HEART: Heart S1, S2, no S3 or S4. Regular rate and rhythm. No murmurs, rubs or gallops. ABDOMEN: Soft, nontender, nondistended, normoactive bowel sounds. No guarding, no rebound. No masses or organomegaly appreciated. EXTREMITIES: 2+ peripheral pulses. No edema. No calf tenderness. NEUROLOGICAL: Pt oriented x 3. No focal deficits. PSYCH: Anxious. SKIN: Warm, dry, intact. - Labs CBC & Chem 7: 11/30/16 07:08 11/30/16 07:08 Labs: Abnormal Lab Results - Last 24 Hours (Table) 11/29/16 11/29/16 11/30/16 Range/Units 16:56 20:08 06:58 RBC (3.80-5.40) m/uL Hgb (11.4-16.0) gm/dL Hct (34.0-46.0) % MCV (80.0-100.0) fL Plt Count (150-450) k/uL BUN (7-17) mg/dL Creatinine (0.52-1.04) mg/dL Glucose (74-99) mg/dL POC Glucose (mg/dL) 143 H 167 H 182 H (75-99) mg/dL 11/30/16 11/30/16 11/30/16 Range/Units 07:08 07:08 12:24 RBC 3.30 L (3.80-5.40) m/uL Hgb 10.3 L (11.4-16.0) gm/dL Hct 33.1 L (34.0-46.0) % MCV 100.2 H (80.0-100.0) fL Plt Count 469 H (150-450) k/uL BUN 27 H (7-17) mg/dL Creatinine 1.70 H (0.52-1.04) mg/dL Glucose 187 H (74-99) mg/dL POC Glucose (mg/dL) 176 H (75-99) mg/dL Assessment and Plan Plan: Impression: 1. Intractable back pain suspect secondary to acute large extruded disc herniation L3 4, failed conservative treatment. 2. 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 Low back pain with bilateral lower extremity radiculopathy 4. Bilateral lower extremity weakness due to disc herniation at L3 4 5. Degenerative disc disease L3 4 L4 5 L5-S1 6. Diabetes mellitus type 2. Hemoglobin A1c 7.3. 7. Acute kidney injury suspect secondary to dehydration. 8. History of chronic kidney disease stage III. 9. History of bilateral cataracts with lens implant. Plan: Patient is scheduled to undergo laminectomy and discectomy L3 [address] Brown. Patient will be kept nothing by mouth. IV fluids will be increased to 125 mL an hour. Continue current medications. Lidoderm patch has been added for pain control. Continue GI prophylaxis. Will repeat CBC and BMP in a.m. The above impression and plan have been discussed and directed by Dr. Stinson. Riccardo BEAL acting as scribe for Dr. Stinson.
[2016-11-30] MEDS ORDERED: fentaNYL (PF) 50 MCG/ML 2 ML AMP IV ONE (17:28)
[2016-11-30] MEDS ORDERED: SODIUM CHLORIDE 0.9% 1,000 ML IV ONE (17:45)
[2016-11-30] MEDS ORDERED: ePHEDrine 50 MG/ML 1 ML AMP ONE (18:39)
[2016-11-30] MEDS ORDERED: SUCCINYLCHOLINE CHLORIDE 100 MG/5 ML SYR IV ONE (18:39)
[2016-11-30] MEDS ORDERED: LIDOCAINE 1% INJ 10MG/ML (20 ML MDV) ONE (18:39)
[2016-11-30] MEDS ORDERED: fentaNYL (PF) 50 MCG/ML 2 ML AMP ONE (18:39)
[2016-11-30] MEDS ORDERED: MIDAZOLAM 2 MG/2 ML VIAL ONE (18:39)
[2016-11-30] MEDS ORDERED: PROPOFOL 10 MG/ML 20 ML VIAL IV ONE (18:39)
[2016-11-30] MEDS ORDERED: SODIUM CHLORIDE 0.9% 50 ML with ceFAZolin 2,000 MG IV ONE ×2 (18:50)
[2016-11-30] MEDS ORDERED: THROMBIN (BOVINE) 5,000 UNIT VIAL TOPICAL ONE (18:50)
[2016-11-30] MEDS ORDERED: LIDOCAINE 0.5%-EPI 1:200,000 50 ML VIAL SQ ONE ×2 (18:59→19:10)
[2016-11-30] MEDS ORDERED: GELATIN SPONGE,ABSORB (LARGE) 1 EACH SPONGE TOPICAL ONE ×2 (18:59→19:10)
[2016-11-30] MEDS ORDERED: methylPREDNISolone ACETATE 80 MG/ML 1 ML VIAL MISCELLANE ONE ×2 (19:10→19:33)
[2016-11-30] MEDS ORDERED: LACTATED RINGERS 1,000 ML IV ONE (19:41)
[2016-11-30] MEDS ORDERED: IBUPROFEN 600 MG TAB PO PRN (19:55)
[2016-11-30] MEDS ORDERED: BENZOCAINE/MENTHOL LOZENG 1 EACH LOZENGE MUCOUS MEM PRN (19:55)
--- NOTE | 2016-11-30 19:55 | P.OP ---
Date of Procedure: 11/30/16 Preoperative Diagnosis: Herniated nucleus pulposis L3 4 Severe spinal stenosis L3 4 Lower extremity radiculopathy with weakness Urinary retention Degenerative disc disease Spondylolisthesis L3 4 Postoperative Diagnosis: Same Anesthesia: GETA Pathology: none sent Condition: stable Disposition: PACU Description of Procedure: BRIEF OPERATIVE NOTE Preoperative Diagnosis:Herniated nucleus pulposis L3 4 Severe spinal stenosis L3 4 Lower extremity radiculopathy with weakness Urinary retention Degenerative disc disease Spondylolisthesis L3 4 Postoperative Diagnosis: Procedure: Laminectomy and decompression with partial medial facetectomy L3 4 Discectomy for decompression L3 4 Use of fluoroscopic guidance Surgeon: Dr. Wang Kitchen Operator: None Anesthesia: General anesthesia per Dr. Biggs Estimated blood loss: Approximately 50 mL Complications: None apparent Components implanted: None Disposition: To recovery room in good stable condition. OPERATIVE INDICATIONS The patient has been having issues in their lower back and lower extremities. She's been having issues for a few months but had severe exacerbation of these issues over the past few weeks and great exacerbation over the past few days where she has been incapacitated with her pain and essentially bedbound. She has been unable to walk and unable to move her legs and had a admitted to the hospital due to her severe issues. She is having some issues with weakness in her lower extremity is and urinary retention. She is found have a large herniated nucleus pulposis at L3 4 which seemed to be new and correlate well with her worsening symptoms. She has numerous issues at her lumbar spine and was going through conservative treatment including interventional pain management without any relief. With her worsening pain in her weakness in possible neurologic issues we discussed the possibility of surgical intervention for the disc herniation at L3 4. The patient has been through conservative treatment. We discussed various treatment options including surgery, and the patient wishes to proceed with surgery We discussed the risk, patient's alternatives and benefits of surgery including but not limited to, risk of bleeding risk of infection, risk of need for further surgery, risk of decreased, loss of motion, loss of function, nerve damage, paralysis, heart attack, blindness and . OPERATIVE SUMMARY After discussing all the risks, patient alternatives and benefits at length, the patient elected to proceed with surgical intervention, signed informed consent, and presented for their procedure. The patient was seen and examined in the preoperative holding area and the surgical site was marked. The patient was given antibiotics and brought to the operating room. The patient was sedated and intubated by anesthesia in standard fashion. The patient was positioned on to the operating room table in a prone position on the appropriate frame which was well-padded and well molded. We were careful to pad any bony prominences and pressure points. We were careful to maintain the patient's cervical spine and good neutral alignment and position throughout. The patient was prepped and draped in a normal standard fashion. An appropriate timeout and keystone protocol performed. We were able to proceed with the surgery. Fluoroscopy was utilized to establish the appropriate level at L3 4. The local wound area was infiltrated with local anesthetic. An incision was made at the midline longitudinally over the appropriate levels at L3 4. Dissection was taken down subcutaneously to the level of the fascia which was split midline. Dissection was taken over the lamina. Intraoperative fluoroscopy was taken which showed a marker at the appropriate level at L3 4. With the appropriate level positively confirmed, we were able to proceed with laminectomy. The wound was copiously irrigated and suctioned dry as had been done periodically throughout the case. I performed a laminectomy with a combination of curettes and a high-speed bur and Kerrison rongeurs. A small medial facetectomy was performed again further access. A partial foraminotomy was also performed. Portions of the ligamentum flavum were taken down to expose the dura and traversing nerve root. I was able to mobilize the traversing nerve root and gain access to the disc space. Note was made of obvious compression from the disc. Protecting the soft tissue structures, a small annulotomy was established. There was large amounts of extruded disc fragment which had migrated cephalad under the posterior longitudinal ligament. I was able to perform discectomy and remove any extruded disc fragments and any loose fragments from within the disc itself. There is some severe disc desiccation noted and a slight spondylolisthesis. I tried to preserve the disc annulus that appeared stable. There were no further extruded fragments noted. There is no evidence of dural tear or leak. Good hemostasis maintained. The wound was copiously irrigated and suctioned dry. Good decompression and discectomy was noted. We were able to proceed with closure. The fascia was closed for a watertight closure. The subcuticular tissue was closed with absorbable suture. The wound was cleaned and dried and dressed with the appropriate dressing. The drapes were broken down. The patient was gently rolled back onto their hospital bed being careful to maintain their cervical spine and good neutral alignment and position. They were woken up by anesthesia, extubated, and brought to the recovery room in good stable condition. The patient will be admitted to the hospital for observation and for appropriate postoperative care, medical management and monitoring. We will continue to follow them closely about the postoperative course.
[2016-11-30] MEDS: HYDROmorphone 1 MG/ML 1 ML SYRINGE IVP ONE ×2 (20:09→20:45)
[2016-11-30] MEDS ORDERED: METOPROLOL TARTRATE 5 MG/5 ML VIAL IVP ONE ×2 (20:25)
[2016-11-30 20:28] LABS: Glucose,Whole Blood 162 mg/dL (75-99)
[2016-11-30] MEDS: HYDROcodone/APAP 5-325MG 1 EACH TAB PO PRN (21:24)
--- NOTE | 2016-11-30 22:04 | FL ---
Fluoroscopy HISTORY: Pain 8 seconds fluoroscopy time supplied to the referring clinician. 1 intraoperative C-arm images docume nt the procedure. See dictated report from orthopedic surgery.
[2016-11-30] MEDS: HYDROmorphone 1 MG/ML 1 ML SYRINGE IVP PRN (22:33)
[2016-11-30] MEDS: ATORVASTATIN 10 MG TAB PO SCH (22:35)
[2016-11-30] MEDS: DOCUSATE ORAL SOLN 100 MG/10 ML CUP PO SCH (22:35)
[2016-11-30] MEDS: ceFAZolin 2 GM in SODIUM CHLORIDE 0.9% 100 ML IVPB SCH (23:29)
[2016-12-01] MEDS: SODIUM CHLORIDE 0.9% 1,000 ML IV SCH ×4 (01:37→16:33)
[2016-12-01] MEDS: HYDROcodone/APAP 5-325MG 1 EACH TAB PO PRN ×5 (01:46→21:00)
[2016-12-01] MEDS: HYDROmorphone 1 MG/ML 1 ML SYRINGE IVP PRN ×4 (03:39→18:20)
[2016-12-01] MEDS: DIAZEPAM 5 MG TAB PO PRN ×3 (06:23→22:47)
[2016-12-01 07:10] LABS: Glucose,Whole Blood 231 mg/dL (75-99)
[2016-12-01] MEDS ORDERED: INSULIN NPH/REG INSULIN 70/30 300 UNIT/3 ML VIAL SQ SCH (07:30)
[2016-12-01] MEDS: ceFAZolin 2 GM in SODIUM CHLORIDE 0.9% 100 ML IVPB SCH (07:53)
[2016-12-01] MEDS: LIDOCAINE 5% PATCH TOPICAL SCH (07:55)
[2016-12-01] MEDS: TIMOLOL 0.5% OPHTH DROPS 5 ML BTL BOTH EYES SCH ×2 (07:58→20:56)
[2016-12-01] MEDS: LISINOPRIL 5 MG TAB PO SCH (07:58)
[2016-12-01] MEDS: PANTOPRAZOLE 40 MG/10 ML VIAL IVP SCH (07:59)
[2016-12-01] MEDS: INSULIN LISPRO (humaLOG) 300 UNIT/3 ML VIAL SQ SCH ×4 (08:04→20:56)
[2016-12-01] MEDS: ASPIRIN 81 MG CHEW PO SCH (08:05)
[2016-12-01] MEDS: CHOLECALCIFEROL 1,000 UNIT TAB PO SCH (08:06)
[2016-12-01] MEDS: FERROUS SULFATE 325 MG TAB PO SCH (08:06)
--- NOTE | 2016-12-01 08:17 | P.PN ---
Progress Note - Text Orthopedic Spine Patient is a pleasant 81-year-old female who is seen at the bedside following a laminectomy and decompression with partial medial facetectomy at L3-4 performed yesterday. Patient states they are doing ok postsurgically. She states she has had some improvement in her left lower extremity radiculopathy but continues to have right lower extremity radiculopathy down to her toes. Her pain has been controlled while lying still but has significant exacerbation of low back pain with any movement. She has been able to ambulate to the restroom twice but she must receive her pain medications before she is able to get out of bed to use the restroom. Currently does not complain of nausea, vomiting, fever, or chills. Patient is eating and voiding freely without difficulty. Physical Exam Laminectomy/Discectomy: Status post surgical day number 1 Patient is awake, alert, and oriented 3 Vital signs stable Good chest excursion with deep inspiration and expiration Abdomen soft nontender Dorsiflexion, plantarflexion, and extensor hallucis longus positive sustained bilaterally No signs or symptoms of DVT; no calf pain Dressing is dry and intact; no erythema, purulence, or signs of infection Some evidence of dried blood at the dressing site Lidoderm patch placed on the right lateral thoracolumbar spine during physical examination No pain with internal Rotation of the hips bilaterally Pneumatic cuffs intact bilateral lower extremities Assessment: L3-4 Laminectomy and decompression with partial medial facetectomy Low back pain Lower extremity radiculopathy Plan: 1. Ambulate as tolerated; work with Physical Therapy to increase mobility and ambulation 2. Continue Pain control with oral medications 3. Medical management can continue to manage patient for patient's other medical issues 4. We will continue to follow the patient closely; if patient is able to improve throughout the day, we may plan for discharge home as early as tomorrow , 12/02/2016 5. Patient can follow-up with Jeanmarie Holland PA-C or Dr. Rebel Wang at [facility] in 2-3 weeks following discharge 6. I have discussed this patient detail with Dr. Rebel Wang and he agrees with this plan
--- NOTE | 2016-12-01 08:26 | XR ---
Limited lumbar spine HISTORY: Lumbar laminectomy Intraoperative C-arm image documents the procedure.
[2016-12-01 08:40] LABS: Basophils % (A) 0 %; CH 31.3; CHCM 31.4; Eosinophils % (A) 0 %; HCT 32.3 % (34.0-46.0); HDW 2.61; HGB 10.2 gm/dL (11.4-16.0); Hypochromasia Slight; Luc # (Auto) 0.18; Luc % (Auto) 1; Lymphocytes # (A) 1.2 k/uL (1.0-4.8); Lymphocytes % (A) 7 %; MCH 31.8 pg (25.0-35.0); MCHC 31.7 g/dL (31.0-37.0); MCV 100.4 fL (80.0-100.0); Mean Platelet Volume 7.4; Monocytes # (A) 0.7 k/uL (0-1.0); Monocytes % (A) 4 %; Neutrophils # (A) 16.2 k/uL (1.3-7.7); Neutrophils % (A) 88 %; RBC 3.21 m/uL (3.80-5.40); RDW 13.1 % (11.5-15.5); WBC 18.3 k/uL (3.8-10.6); WBC (Perox) 19.52
[2016-12-01 08:56] LABS: Calcium 8.6 mg/dL (8.4-10.2); Potassium 4.7 mmol/L (3.5-5.1)
[2016-12-01 11:14] LABS: Glucose,Whole Blood 270 mg/dL (75-99)
--- NOTE | 2016-12-01 12:57 | P.PN ---
Subjective Principal diagnosis: Lumbar disc herniation Patient is an 81-year-old female, patient of Dr. Brink in the outpatient setting admitted with severe low back pain, weakness, and bilateral lower extremity radiculopathy. Patient was found to have evidence of an acute large extruded disc herniation at L3 4 with chronic changes at L3 4 L4 5 and L5- S1. Patient was evaluated by orthopedic service and underwent laminectomy and decompression with partial medial facetectomy L3 4; and discectomy for decompression L3 4 on 11/30/2012. Patient tolerated procedure well. Patient is evaluated at bedside which she is currently postop day #1. Physical therapy is working with patient as she is sitting on the side of the bed attempting to get up in a chair. Patient complains of severe back pain radiating down her right leg. Denies chills, fevers, nausea, vomiting, shortness of breath, chest pain, abdominal pain, urinary incontinence, constipation or diarrhea. Patient has been up to the commode to urinate. Patient is tolerating diet. Blood sugars are increased suspect secondary to patient not having not receiving her home insulin. Creatinine is improving. Objective - Vital Signs Vital signs: Vital Signs Temp 96.8 F L 12/01/16 08:06 Pulse 88 12/01/16 08:06 Resp 18 12/01/16 08:06 BP 188/81 12/01/16 08:06 Pulse Ox 96 12/01/16 08:06 Intake & Output 11/30/16 12/01/16 12/01/16 18:59 06:59 18:59 Intake Total 250 1271 Output Total 50 Balance 250 1221 Weight 75 kg Intake: IV 250 451 Intake, IV Titration 700 Amount Sodium Chloride 0.9% 1, 600 000 ml @ 75 mls/hr IV . [id number] [facility] Rx#:[id number] ceFAZolin 2 gm In Sodium 100 Chloride 0.9% 100 ml @ 100 mls/hr IVPB Q8HR [facility] Rx#:[id number] Oral 120 Output: Estimated Blood Loss 50 Other: Voiding Method Bedside Commode # Voids 2 1 1 - Exam GENERAL: Pt awake and alert, well-nourished, appears in mild distress. HEAD: Atraumatic, normocephalic. EYES: Pupils equal and round. Sclera anicteric, conjunctiva are normal. ENT: Moist mucous membranes. NECK:Supple without lymphadenopathy or JVD. LUNGS: Breath sounds clear to auscultation bilaterally. No wheezes, rales, or rhonchi. HEART: Heart S1, S2, no S3 or S4. Regular rate and rhythm. No murmurs, rubs or gallops. ABDOMEN: Soft, nontender, nondistended, normoactive bowel sounds. No guarding, no rebound. No masses or organomegaly appreciated. EXTREMITIES: 2+ peripheral pulses. No edema. No calf tenderness. NEUROLOGICAL: Pt oriented x 3. No focal deficits. PSYCH: Anxious. SKIN: Warm, dry, intact. Incision to lower back dry and intact. - Labs CBC & Chem 7: 12/01/16 08:07 12/01/16 08:07 Labs: Abnormal Lab Results - Last 24 Hours (Table) 11/30/16 12/01/16 12/01/16 Range/Units 20:25 07:08 08:07 WBC 18.3 H (3.8-10.6) k/uL RBC 3.21 L (3.80-5.40) m/uL Hgb 10.2 L (11.4-16.0) gm/dL Hct 32.3 L (34.0-46.0) % MCV 100.4 H (80.0-100.0) fL Neutrophils # 16.2 H (1.3-7.7) k/uL Carbon Dioxide (22-30) mmol/L BUN (7-17) mg/dL Creatinine (0.52-1.04) mg/dL Glucose (74-99) mg/dL POC Glucose (mg/dL) 162 H 231 H (75-99) mg/dL 12/01/16 12/01/16 Range/Units 08:07 11:12 WBC (3.8-10.6) k/uL RBC (3.80-5.40) m/uL Hgb (11.4-16.0) gm/dL Hct (34.0-46.0) % MCV (80.0-100.0) fL Neutrophils # (1.3-7.7) k/uL Carbon Dioxide 20 L (22-30) mmol/L BUN 23 H (7-17) mg/dL Creatinine 1.27 H (0.52-1.04) mg/dL Glucose 264 H (74-99) mg/dL POC Glucose (mg/dL) 270 H (75-99) mg/dL Assessment and Plan Plan: Impression: 1. Intractable back pain suspect secondary to acute large extruded disc herniation L3 4, failed conservative treatment status post laminectomy and decompression with partial medial facetectomy L3 4; discectomy for decompression L3 4 and 11/30/2016. 2. 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 Low back pain with bilateral lower extremity radiculopathy 4. Bilateral lower extremity weakness due to disc herniation at L3 4 5. Degenerative disc disease L3 4 L4 5 L5-S1 6. Diabetes mellitus type 2. Hemoglobin A1c 7.3. Blood sugars currently uncontrolled. 7. Acute kidney injury suspect secondary to dehydration, improved. 8. History of chronic kidney disease stage III. 9. History of bilateral cataracts with lens implant. 10. Leukocytosis. Suspect reactive. Plan: Continue surgical management by surgical service. Continue current medications. Oversewing patient's home insulin. Continue physical therapy. Continue supportive treatment and pain management. IV fluids has been decreased to 75 mL an hour. Continue GI and DVT prophylaxis. Encourage incentive spirometry use. Will repeat CBC and BMP in a.m. The above impression and plan have been discussed and directed by Dr. Stinson. Riccardo MÉNDEZ-Jarred acting as scribe for Dr. Stinson.
[2016-12-01] MEDS: INSULIN NPH/REG INSULIN 70/30 300 UNIT/3 ML VIAL SQ SCH ×2 (13:02→18:13)
[2016-12-01 17:25] LABS: Glucose,Whole Blood 142 mg/dL (75-99)
[2016-12-01 20:14] LABS: Glucose,Whole Blood 177 mg/dL (75-99)
[2016-12-01] MEDS: ATORVASTATIN 10 MG TAB PO SCH (20:55)
[2016-12-01] MEDS: DOCUSATE ORAL SOLN 100 MG/10 ML CUP PO SCH (20:56)
[2016-12-01] MEDS: HEPARIN SODIUM,PORCINE 5,000 UNIT/ML 1 ML VIAL SQ SCH (21:00)
[2016-12-02] MEDS: SODIUM CHLORIDE 0.9% 1,000 ML IV SCH ×5 (02:22→15:57)
[2016-12-02] MEDS: HYDROcodone/APAP 5-325MG 1 EACH TAB PO PRN ×4 (05:21→23:37)
[2016-12-02 07:12] LABS: Glucose,Whole Blood 154 mg/dL (75-99)
[2016-12-02 07:37] LABS: Basophils % (A) 0 %; CH 31.2; Eosinophils % (A) 0 %; HCT 32.2 % (34.0-46.0); HGB 10.3 gm/dL (11.4-16.0); Luc # (Auto) 0.36; Luc % (Auto) 2; Lymphocytes # (A) 1.8 k/uL (1.0-4.8); Lymphocytes % (A) 11 %; MCH 31.4 pg (25.0-35.0); MCHC 32.1 g/dL (31.0-37.0); MCV 97.8 fL (80.0-100.0); Mean Platelet Volume 6.8; Monocytes # (A) 0.6 k/uL (0-1.0); Monocytes % (A) 4 %; Neutrophils # (A) 13.7 k/uL (1.3-7.7); Neutrophils % (A) 83 %; RBC 3.29 m/uL (3.80-5.40); RDW 13.1 % (11.5-15.5); WBC 16.5 k/uL (3.8-10.6); WBC (Perox) 17.46
[2016-12-02 07:54] LABS: Calcium 9.2 mg/dL (8.4-10.2); Potassium 4.2 mmol/L (3.5-5.1)
[2016-12-02] MEDS: INSULIN NPH/REG INSULIN 70/30 300 UNIT/3 ML VIAL SQ SCH ×3 (07:56→17:09)
[2016-12-02] MEDS: INSULIN LISPRO (humaLOG) 300 UNIT/3 ML VIAL SQ SCH ×4 (07:57→20:52)
[2016-12-02] MEDS: HEPARIN SODIUM,PORCINE 5,000 UNIT/ML 1 ML VIAL SQ SCH ×2 (07:59→20:51)
[2016-12-02] MEDS: LIDOCAINE 5% PATCH TOPICAL SCH (07:59)
[2016-12-02] MEDS: TIMOLOL 0.5% OPHTH DROPS 5 ML BTL BOTH EYES SCH ×2 (08:00→20:51)
[2016-12-02] MEDS: LISINOPRIL 5 MG TAB PO SCH (08:00)
[2016-12-02] MEDS: ASPIRIN 81 MG CHEW PO SCH (08:00)
[2016-12-02] MEDS: PANTOPRAZOLE 40 MG TABLET PO SCH (08:00)
--- NOTE | 2016-12-02 10:33 | P.PN ---
Subjective Principal diagnosis: chief complaint: Acute lumbar radiculopathy , L4 5, L5 3 4 and L5-S1 Status post discectomy with lumbar decompression, patient's pain has significantly improved she has been up to the bathroom walking with a walker, anticipate continued improvement in pain. Objective - Vital Signs Vital signs: Vital Signs Temp 98.1 F 12/02/16 07:00 Pulse 75 12/02/16 09:52 Resp 18 12/02/16 07:00 BP 181/74 12/02/16 09:52 Pulse Ox 97 12/02/16 07:00 Intake & Output 12/01/16 12/02/16 12/02/16 18:59 06:59 18:59 Intake Total 100 480 Balance 100 480 Intake: Intake, IV Titration 100 Amount ceFAZolin 2 gm In Sodium 100 Chloride 0.9% 100 ml @ 100 mls/hr IVPB Q8HR [facility] Rx#:[id number] Oral 480 Other: Voiding Method Bedside Commode Bedside Commode # Voids 1 3 - Exam General: [Patient awake, alert and oriented times 3. Patient in no acute distress.] HEENT: [PERRL. EOMI. No pharyngeal erythema or exudate.] Neck: [No adenopathy.] Cardiac: [Heart regular in rate and rhythm. No S3. No S4. No clicks, rubs. No murmur.] Lungs: [Clear to auscultation bilaterally.] Abdomen: [No mass. No organomegaly. Bowel sounds presnt and normoactive in all 4 quadrants.] Extremes: [No edema no cyanosis no claudication normal pulses] : [] Musculoskeletal: pain with lumbar flexion extension bilateral straight leg positive Skin: [No rash.] Neurologic: [No lateralizing deficits. CN II - XII grossly intact.] Lymphatic: [No adenopathy.] - Labs CBC & Chem 7: 12/02/16 07:10 12/02/16 07:10 Labs: Abnormal Lab Results - Last 24 Hours (Table) 12/01/16 12/01/16 12/01/16 Range/Units 11:12 17:11 20:11 WBC (3.8-10.6) k/uL RBC (3.80-5.40) m/uL Hgb (11.4-16.0) gm/dL Hct (34.0-46.0) % Plt Count (150-450) k/uL Neutrophils # (1.3-7.7) k/uL BUN (7-17) mg/dL Creatinine (0.52-1.04) mg/dL Glucose (74-99) mg/dL POC Glucose (mg/dL) 270 H 142 H 177 H (75-99) mg/dL 12/02/16 12/02/16 12/02/16 Range/Units 07:09 07:10 07:10 WBC 16.5 H (3.8-10.6) k/uL RBC 3.29 L (3.80-5.40) m/uL Hgb 10.3 L (11.4-16.0) gm/dL Hct 32.2 L (34.0-46.0) % Plt Count 462 H (150-450) k/uL Neutrophils # 13.7 H (1.3-7.7) k/uL BUN 19 H (7-17) mg/dL Creatinine 1.16 H (0.52-1.04) mg/dL Glucose 143 H (74-99) mg/dL POC Glucose (mg/dL) 154 H (75-99) mg/dL Assessment and Plan (1) Intractable back pain Narrative/Plan: patient is status post lumbar decompression L3 4 and L4 5 with laminectomy patient's currently using [place] 5mg 1 by mouth every 4-6 hours as needed Flexeril 5 mg 1 every 8 hours as needed for spasm. She has significant improvement and reduction in pain Status: Acute (2) Lumbar disc herniation Narrative/Plan: we will reevaluate tomorrow anticipate discharge home in the next 24-48 hours Status: Acute Time with Patient: Less than 30
[2016-12-02 12:12] LABS: Glucose,Whole Blood 156 mg/dL (75-99)
[2016-12-02] MEDS: FERROUS SULFATE 325 MG TAB PO SCH (12:33)
[2016-12-02] MEDS: CHOLECALCIFEROL 1,000 UNIT TAB PO SCH (12:33)
--- NOTE | 2016-12-02 13:32 | P.PN ---
Subjective Principal diagnosis: S/P Lumbar laminectomy decompression Patient is a pleasant 81-year-old female who is seen at the bedside today. She is status post L3-4 laminectomy and decompression with partial medial facetectomy performed 11/30/[address] Wang. Patient has post op surgical pain in the lumbar area as expected but improved. She continues to have some residual lower extremity pain but also states is improved. She denies numbness or tingling. She denies any new complaints. She is tolerating PO meds and diet. She is voiding without difficulty. ROS is negative for fever, chills, chest pain , shortness of breath, cough, calf pain, abdominal pain, headaches, slurred speech or other. Objective - Vital Signs Vital signs: Vital Signs Temp 98.1 F 12/02/16 07:00 Pulse 75 12/02/16 09:52 Resp 18 12/02/16 07:00 BP 181/74 12/02/16 09:52 Pulse Ox 97 12/02/16 07:00 Intake & Output 12/01/16 12/02/16 12/02/16 18:59 06:59 18:59 Intake Total 100 480 600 Balance 100 480 600 Intake: Intake, IV Titration 100 600 Amount Sodium Chloride 0.9% 1, 600 000 ml @ 75 mls/hr IV . [id number] [facility] Rx#:[id number] ceFAZolin 2 gm In Sodium 100 Chloride 0.9% 100 ml @ 100 mls/hr IVPB Q8HR [facility] Rx#:[id number] Oral 480 Other: Voiding Method Bedside Commode Bedside Commode # Voids 1 3 - Exam Lumbar surgical wound is benign. No active bleeding or drainage present. Abdomen is soft and nontender. Lower extremities are neurologically intact with active motor and sensation to light touch equally bilaterally L2-S1. 1+ reflexes at knees and ankles equal bilaterally. Calves are soft and nontender. 2 + pulses and less than 2 sec cap refill present. - Constitutional General appearance: Present: no acute distress - Psychiatric Psychiatric: Present: A&O x's 3, appropriate affect, intact judgment & insight - Labs CBC & Chem 7: 12/02/16 07:10 12/02/16 07:10 Labs: Abnormal Lab Results - Last 24 Hours (Table) 12/01/16 12/01/16 12/02/16 Range/Units 17:11 20:11 07:09 WBC (3.8-10.6) k/uL RBC (3.80-5.40) m/uL Hgb (11.4-16.0) gm/dL Hct (34.0-46.0) % Plt Count (150-450) k/uL Neutrophils # (1.3-7.7) k/uL BUN (7-17) mg/dL Creatinine (0.52-1.04) mg/dL Glucose (74-99) mg/dL POC Glucose (mg/dL) 142 H 177 H 154 H (75-99) mg/dL 12/02/16 12/02/16 12/02/16 Range/Units 07:10 07:10 12:00 WBC 16.5 H (3.8-10.6) k/uL RBC 3.29 L (3.80-5.40) m/uL Hgb 10.3 L (11.4-16.0) gm/dL Hct 32.2 L (34.0-46.0) % Plt Count 462 H (150-450) k/uL Neutrophils # 13.7 H (1.3-7.7) k/uL BUN 19 H (7-17) mg/dL Creatinine 1.16 H (0.52-1.04) mg/dL Glucose 143 H (74-99) mg/dL POC Glucose (mg/dL) 156 H (75-99) mg/dL Assessment and Plan (1) Lumbar spinal stenosis Narrative/Plan: She will continue with routine post op orthopedic spine protocol including pain management, wound care, physical therapy, DVT prophylaxis and medical management. Expect she will discharge to home in the next 1-2 days. Status: Acute Time with Patient: Less than 30
[2016-12-02 17:18] LABS: Glucose,Whole Blood 102 mg/dL (75-99)
[2016-12-02] MEDS: ATORVASTATIN 10 MG TAB PO SCH (20:51)
[2016-12-02] MEDS: DOCUSATE ORAL SOLN 100 MG/10 ML CUP PO SCH (20:52)
[2016-12-02 20:53] LABS: Glucose,Whole Blood 157 mg/dL (75-99)
[2016-12-02] MEDS: DIAZEPAM 5 MG TAB PO PRN (21:00)
[2016-12-02] MEDS ORDERED: METOPROLOL SUCCINATE (ER) 25 MG TAB.ER.24H PO STA (21:57)
[2016-12-02] MEDS ORDERED: hydrALAZINE HCL 25 MG TAB PO STA (21:57)
[2016-12-02] MEDS ORDERED: METOPROLOL TARTRATE 25 MG TAB PO STA (22:53)
[2016-12-03] MEDS: SODIUM CHLORIDE 0.9% 1,000 ML IV SCH ×2 (04:12→15:00)
[2016-12-03 07:08] LABS: Glucose,Whole Blood 181 mg/dL (75-99)
[2016-12-03] MEDS: INSULIN LISPRO (humaLOG) 300 UNIT/3 ML VIAL SQ SCH ×4 (07:24→20:38)
[2016-12-03] MEDS: LISINOPRIL 5 MG TAB PO SCH (07:25)
[2016-12-03] MEDS: HYDROcodone/APAP 5-325MG 1 EACH TAB PO PRN ×3 (07:25→19:00)
[2016-12-03] MEDS: PANTOPRAZOLE 40 MG TABLET PO SCH (07:25)
[2016-12-03] MEDS: INSULIN NPH/REG INSULIN 70/30 300 UNIT/3 ML VIAL SQ SCH ×3 (08:08→17:30)
[2016-12-03] MEDS: TIMOLOL 0.5% OPHTH DROPS 5 ML BTL BOTH EYES SCH ×2 (08:09→20:38)
[2016-12-03] MEDS: HEPARIN SODIUM,PORCINE 5,000 UNIT/ML 1 ML VIAL SQ SCH ×2 (08:09→20:38)
[2016-12-03] MEDS: ASPIRIN 81 MG CHEW PO SCH (08:09)
[2016-12-03] MEDS: LIDOCAINE 5% PATCH TOPICAL SCH (08:09)
--- NOTE | 2016-12-03 09:26 | P.PN ---
Subjective Principal diagnosis: chief complaint: Acute lumbar radiculopathy , L4 5, L5 3 4 and L5-S1 Status post discectomy with lumbar decompression, patient's pain has significantly improved she has been up to the bathroom walking with a walker, anticipate continued improvement in pain. patient is doing quite well today in fact with the exception of an increase and her blood pressure is well-controlled hyper tension will add metoprolol 50 mg 1 by mouth every morning also hydrochlorothiazide 25 mg 1 by mouth every morning Objective - Vital Signs Vital signs: Vital Signs Temp 98.1 F 12/03/16 07:00 Pulse 72 12/03/16 07:00 Resp 16 12/03/16 08:00 BP 182/82 12/03/16 07:00 Pulse Ox 99 12/03/16 07:00 Intake & Output 12/02/16 12/03/16 12/03/16 18:59 06:59 18:59 Intake Total 600 300 Balance 600 300 Intake: IV 300 Sodium Chloride 0.9% 1, 300 000 ml @ 75 mls/hr IV . [id number] GAETANO Rx#:[id number] Intake, IV Titration 600 Amount Sodium Chloride 0.9% 1, 600 000 ml @ 75 mls/hr IV . [id number] GAETANO Rx#:[id number] Other: Voiding Method Toilet Toilet # Voids 2 - Exam General: [Patient awake, alert and oriented times 3. Patient in no acute distress.] HEENT: [PERRL. EOMI. No pharyngeal erythema or exudate.] Neck: [No adenopathy.] Cardiac: [Heart regular in rate and rhythm. No S3. No S4. No clicks, rubs. No murmur.] Lungs: [Clear to auscultation bilaterally.] Abdomen: [No mass. No organomegaly. Bowel sounds presnt and normoactive in all 4 quadrants.] Extremes: [No edema no cyanosis no claudication normal pulses] : [] Musculoskeletal: pain with lumbar flexion extension bilateral straight leg positive Skin: [No rash.] Neurologic: [No lateralizing deficits. CN II - XII grossly intact.] Lymphatic: [No adenopathy.] - Labs CBC & Chem 7: 12/02/16 07:10 12/02/16 07:10 Labs: Abnormal Lab Results - Last 24 Hours (Table) 12/02/16 12/02/16 12/02/16 Range/Units 12:00 17:05 20:45 POC Glucose (mg/dL) 156 H 102 H 157 H (75-99) mg/dL 12/03/16 Range/Units 07:07 POC Glucose (mg/dL) 181 H (75-99) mg/dL Assessment and Plan (1) Intractable back pain Narrative/Plan: patient is status post lumbar decompression L3 4 and L4 5 with laminectomy patient's currently using [place] 5mg 1 by mouth every 4-6 hours as needed Flexeril 5 mg 1 every 8 hours as needed for spasm. She has significant improvement and reduction in pain Status: Acute (2) Lumbar disc herniation Narrative/Plan: patient's blood pressure has been up throughout the night she was given 25 mg metoprolol last night and hydralazine 25 mg. We'll start 50 mg of metoprolol one by mouth daily, and hydrochlorothiazide 25 mg 1 by mouth daily Will follow closely we'll monitor blood pressure regularly Status: Acute
--- NOTE | 2016-12-03 09:58 | P.PN ---
Subjective Principal diagnosis: S/P Lumbar laminectomy decompression Patient is a pleasant 81-year-old female who is seen at the bedside today. She is status post L3-4 laminectomy and decompression with partial medial facetectomy performed 11/30/[address] Wang. Her post op surgical pain in the lumbar area continues o improve. Her residual lower extremity pain continues to improve as well. She denies numbness or tingling. She denies any new complaints. She is tolerating PO meds and diet. She is voiding without difficulty. ROS is negative for fever, chills, chest pain, shortness of breath, cough, calf pain, abdominal pain, headaches, slurred speech or other. Objective - Vital Signs Vital signs: Vital Signs Temp 98.1 F 12/03/16 07:00 Pulse 72 12/03/16 07:00 Resp 16 12/03/16 08:00 BP 182/82 12/03/16 07:00 Pulse Ox 99 12/03/16 07:00 Intake & Output 12/02/16 12/03/16 12/03/16 18:59 06:59 18:59 Intake Total 600 300 Balance 600 300 Intake: IV 300 Sodium Chloride 0.9% 1, 300 000 ml @ 75 mls/hr IV . [id number] GAETANO Rx#:[id number] Intake, IV Titration 600 Amount Sodium Chloride 0.9% 1, 600 000 ml @ 75 mls/hr IV . [id number] GAETANO Rx#:[id number] Other: Voiding Method Toilet Toilet # Voids 2 - Exam Lumbar surgical wound is benign. No active bleeding or drainage present. Abdomen is soft and nontender. Lower extremities are neurologically intact with active motor and sensation to light touch equally bilaterally L2-S1. 1+ reflexes at knees and ankles equal bilaterally. Calves are soft and nontender. 2 + pulses and less than 2 sec cap refill present. - Constitutional General appearance: Present: no acute distress - Psychiatric Psychiatric: Present: A&O x's 3, appropriate affect, intact judgment & insight - Labs CBC & Chem 7: 12/02/16 07:10 12/02/16 07:10 Labs: Abnormal Lab Results - Last 24 Hours (Table) 12/02/16 12/02/16 12/02/16 Range/Units 12:00 17:05 20:45 POC Glucose (mg/dL) 156 H 102 H 157 H (75-99) mg/dL 12/03/16 Range/Units 07:07 POC Glucose (mg/dL) 181 H (75-99) mg/dL Assessment and Plan (1) Lumbar spinal stenosis Narrative/Plan: She will continue with routine post op orthopedic spine protocol including pain management, wound care, physical therapy, DVT prophylaxis and medical management. Her BP has remained elevated and is being addressed per internal medicine. Expect she will discharge to an extended care facility in the next 1- 2 days. Status: Acute Time with Patient: Less than 30
--- NOTE | 2016-12-03 11:27 | P.PN ---
Progress Note - Text Postoperative day #3 Patient is seen and examined today at bedside. The patient has some pain around the surgical site as expected. Pain is being controlled with medication. She feels her back and her leg have made improvement but she still quite slow moving and has some pain residually after right leg. Physical Exam Afebrile with stable vital signs Abdomen is soft nontender. Chest has good excursion deep and space expiration The incision site is clean dry and intact. No erythema there is no purulence. Her back appears clear Extremities have had some improvement postoperatively with some improvement in her mobility and her leg and strength with her lower leg. Calves and thighs were soft nontender without evidence of DVT. Assessment/Plan Postoperative day #3 status post laminectomy with discectomy at L3 4 for her large disc herniation with urinary retention lower extremity weakness Patient is progressing as expected from the surgery. She is able to void freely and has having some improvement with her leg strength. She still has significant difficulty with mobility on her own and still has residual weakness. We will continue to increase the patient's mobilization with therapy. I don't think that she would be safe on her own at home and will need extended care facility likely be discharged to longterm tomorrow. We will continue pain control with oral or IV medications. We'll continue to follow patient closely.
[2016-12-03 11:40] LABS: Glucose,Whole Blood 173 mg/dL (75-99)
[2016-12-03] MEDS: CHOLECALCIFEROL 1,000 UNIT TAB PO SCH (11:53)
[2016-12-03] MEDS: FERROUS SULFATE 325 MG TAB PO SCH (11:54)
[2016-12-03 17:29] LABS: Glucose,Whole Blood 94 mg/dL (75-99)
[2016-12-03] MEDS: DOCUSATE ORAL SOLN 100 MG/10 ML CUP PO SCH (20:38)
[2016-12-03] MEDS: ATORVASTATIN 10 MG TAB PO SCH (20:38)
[2016-12-03 20:43] LABS: Glucose,Whole Blood 156 mg/dL (75-99)
[2016-12-03] MEDS ORDERED: hydrALAZINE HCL 20 MG/ML 1 ML VIAL IVP STA (20:52)
[2016-12-03] MEDS ORDERED: hydrALAZINE HCL 25 MG TAB PO STA (21:04)
[2016-12-03] MEDS ORDERED: METOPROLOL TARTRATE 25 MG TAB PO STA (21:40)
[2016-12-04] MEDS: SODIUM CHLORIDE 0.9% 1,000 ML IV SCH ×2 (05:26→16:39)
[2016-12-04 07:53] LABS: Glucose,Whole Blood 157 mg/dL (75-99)
[2016-12-04] MEDS: INSULIN LISPRO (humaLOG) 300 UNIT/3 ML VIAL SQ SCH ×4 (08:01→21:01)
[2016-12-04] MEDS: INSULIN NPH/REG INSULIN 70/30 300 UNIT/3 ML VIAL SQ SCH ×3 (08:02→17:19)
[2016-12-04] MEDS: LIDOCAINE 5% PATCH TOPICAL SCH (08:03)
[2016-12-04] MEDS: DIAZEPAM 5 MG TAB PO PRN (08:04)
[2016-12-04] MEDS: ASPIRIN 81 MG CHEW PO SCH (08:04)
[2016-12-04] MEDS: PANTOPRAZOLE 40 MG TABLET PO SCH (08:04)
[2016-12-04] MEDS: HYDROCHLOROTHIAZIDE 25 MG TAB PO SCH (08:04)
[2016-12-04] MEDS: HEPARIN SODIUM,PORCINE 5,000 UNIT/ML 1 ML VIAL SQ SCH ×2 (08:05→21:01)
[2016-12-04] MEDS: METOPROLOL TARTRATE 50 MG TAB PO SCH (08:05)
[2016-12-04] MEDS: LISINOPRIL 5 MG TAB PO SCH (08:05)
[2016-12-04] MEDS: TIMOLOL 0.5% OPHTH DROPS 5 ML BTL BOTH EYES SCH ×2 (08:05→21:01)
--- NOTE | 2016-12-04 08:29 | P.PN ---
Progress Note - Text This is a pleasant 81-year-old female who presented with L3-4 herniated nucleus pulpolsus, spondylolisthesis, and severe spinal canal stenosis with lower extremity radiculopathy with weakness, urinary retention, and lumbar degenerative disc disease. She underwent a laminectomy and decompression with partial medial facetectomy at L3-4 performed on 11/30/2016. Postsurgically, she 's been slow to increase mobilization but states her symptoms have been improving over the weekend. She continues to have some right lower extremity radiculopathy but states overall her symptoms have been improving. She's been able to ambulate to the restroom without significant difficulty. She been eating and voiding without difficulty but states she does not have much of an appetite. She states her symptoms are better controlled and she is ready to be discharged to a rehabilitation facility today. She feels rehabilitation provides the best opportunity to increase her strength and mobility independently prior to returning home. I discussed with the patient we will plan to contact a case assistant to start the transfer process to a rehabilitation facility. Condition on day of discharge stable. Patient was cleared preoperatively for surgery by Dr. Stinson. Patient currently denies any nausea, vomiting, fever, or chills. Patient is eating and voiding freely without difficulty. Patient may shower Tegaderm dressing intact. Patient may remove Tegaderm dressing in 3 days and shower without a dressing at that time. Patient should keep Steri-Strips intact and allow them to fall off naturally. Patient should refrain from driving until at least after their first follow-up appointment in the office. Patient should avoid excessive bending, lifting, and twisting; no lifting greater than 10 pounds. She is currently admitted to medicine. She'll be discharge by medicine. She'll be given a prescription for [place] 5 mg/325 mg 1 tab every 6 hours as needed for pain. Medicine will prescribe other medications as well as finish her medical record for rehabilitation. Physical Exam Laminectomy/Discectomy: Status post surgical day number 2 Patient is awake, alert, and oriented 3; patient is sitting at the bedside without significant difficulty Vital signs stable Good chest excursion with deep inspiration and expiration Abdomen soft nontender Dorsiflexion, plantarflexion, and extensor hallucis longus positive sustained bilaterally No signs or symptoms of DVT; no calf pain Dressing is dry and intact; no erythema, purulence, or signs of infection Some evidence of dried blood at the dressing site Lidoderm patch placed on the right lower lumbar spine during physical examination No pain with internal and external rotation of the hips bilaterally Pneumatic cuffs intact bilateral lower extremities Assessment: L3-4 Laminectomy and decompression with partial medial facetectomy Low back pain Lower extremity radiculopathy with weakness Lumbar spinal canal stenosis Lumbar degenerative disc disease Plan: 1. Ambulate as tolerated; work with Physical Therapy to increase mobility and ambulation 2. Continue Pain control; prescription for [place] 5 mg/325 mg 1 tab every 6 hours as needed for pain dispense 90 (Ninety) will be written at the time of discharge 3. Medical management can continue to manage patient for patient's other medical issues; medicine will plan to discharge patient on a feels she is medically cleared 4. From an orthopedic spine standpoint, patient is cleared for discharge to a rehabilitation facility 5. Patient can follow-up with Jeanmarie Holland PA-C or Dr. Rebel Wang at [facility] in 2-3 weeks following discharge 6. I have discussed this patient detail with Dr. Rebel Wang and he agrees with this plan
[2016-12-04] MEDS ORDERED: hydrALAZINE HCL 20 MG/ML 1 ML VIAL IVP PRN (09:58)
[2016-12-04 10:39] LABS: Calcium 9.1 mg/dL (8.4-10.2)
[2016-12-04 10:40] LABS: Basophils # (A) 0.1 k/uL (0-0.2); Basophils % (A) 1 %; CH 31.6; CHCM 32.2; Eosinophils # (A) 0.1 k/uL (0-0.7); Eosinophils % (A) 1 %; HGB 10.9 gm/dL (11.4-16.0); Luc # (Auto) 0.37; Luc % (Auto) 4; Lymphocytes # (A) 2.2 k/uL (1.0-4.8); Lymphocytes % (A) 21 %; MCH 31.6 pg (25.0-35.0); MCV 98.7 fL (80.0-100.0); Mean Platelet Volume 6.9; Monocytes # (A) 0.6 k/uL (0-1.0); Monocytes % (A) 6 %; Neutrophils # (A) 7.4 k/uL (1.3-7.7); Neutrophils % (A) 69 %; RBC 3.44 m/uL (3.80-5.40); RDW 13.3 % (11.5-15.5); WBC 10.7 k/uL (3.8-10.6); WBC (Perox) 11.01
[2016-12-04 10:48] LABS: Potassium 4.6 mmol/L (3.5-5.1)
[2016-12-04 11:50] LABS: Glucose,Whole Blood 200 mg/dL (75-99)
[2016-12-04] MEDS: FERROUS SULFATE 325 MG TAB PO SCH (12:19)
[2016-12-04] MEDS: CHOLECALCIFEROL 1,000 UNIT TAB PO SCH (12:19)
[2016-12-04] MEDS ORDERED: LISINOPRIL 5 MG TAB PO STA (13:28)
--- NOTE | 2016-12-04 13:45 | P.PN ---
Subjective Principal diagnosis: Intractable back pain with radiculopathy Patient is an 81-year-old female, patient of Dr. Brink in the outpatient setting admitted with intractable low back pain, weakness, and bilateral lower extremity radiculopathy. Patient was found to have evidence of an acute large extruded disc herniation at L3 4 with chronic changes at L3 4 L4 5 and L5-S1. Patient was evaluated by orthopedic service and underwent laminectomy and decompression with partial medial facetectomy L3 4; and discectomy for decompression L3 4 on 11/30/2012. Patient tolerated procedure well. Patient is evaluated at bedside. Patient has been up to the bathroom ambulating with walker. Denies chills, fevers, nausea, vomiting, shortness of breath, chest pain, abdominal pain, urinary incontinence, constipation or diarrhea. Back pain significantly improved from admission. Patient is tolerating diet. No evidence of fevers. Systolic blood pressure elevated in the low 200 range. Objective - Vital Signs Vital signs: Vital Signs Temp 97.8 F 12/04/16 07:00 Pulse 66 12/04/16 07:00 Resp 18 12/04/16 07:00 BP 200/84 12/04/16 07:00 Pulse Ox 97 12/04/16 07:00 Intake & Output 12/03/16 12/04/16 12/04/16 18:59 06:59 18:59 Other: Voiding Method Toilet Toilet # Voids 4 2 - Exam GENERAL: Pt awake and alert, well-nourished, appears in mild distress. HEAD: Atraumatic, normocephalic. EYES: Pupils equal and round. Sclera anicteric, conjunctiva are normal. ENT: Moist mucous membranes. NECK:Supple without lymphadenopathy or JVD. LUNGS: Breath sounds clear to auscultation bilaterally. No wheezes, rales, or rhonchi. HEART: Heart S1, S2, no S3 or S4. Regular rate and rhythm. No murmurs, rubs or gallops. ABDOMEN: Soft, nontender, nondistended, normoactive bowel sounds. No guarding, no rebound. No masses or organomegaly appreciated. EXTREMITIES: 2+ peripheral pulses. No edema. No calf tenderness. NEUROLOGICAL: Pt oriented x 3. No focal deficits. PSYCH: Calm. SKIN: Warm, dry, intact. Incision to lower back dry and intact. - Labs CBC & Chem 7: 12/04/16 10:11 12/04/16 10:11 Labs: Abnormal Lab Results - Last 24 Hours (Table) 12/03/16 12/04/16 12/04/16 Range/Units 20:30 07:26 10:11 WBC 10.7 H (3.8-10.6) k/uL RBC 3.44 L (3.80-5.40) m/uL Hgb 10.9 L (11.4-16.0) gm/dL Plt Count 504 H (150-450) k/uL BUN (7-17) mg/dL Creatinine (0.52-1.04) mg/dL Glucose (74-99) mg/dL POC Glucose (mg/dL) 156 H 157 H (75-99) mg/dL 12/04/16 12/04/16 Range/Units 10:11 11:28 WBC (3.8-10.6) k/uL RBC (3.80-5.40) m/uL Hgb (11.4-16.0) gm/dL Plt Count (150-450) k/uL BUN 24 H (7-17) mg/dL Creatinine 1.14 H (0.52-1.04) mg/dL Glucose 258 H (74-99) mg/dL POC Glucose (mg/dL) 200 H (75-99) mg/dL Assessment and Plan Plan: Impression: 1. Intractable back pain suspect secondary to acute large extruded disc herniation L3 4, failed conservative treatment status post laminectomy and decompression with partial medial facetectomy L3 4; discectomy for decompression L3 4 and 11/30/2016. 2. 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 Low back pain with bilateral lower extremity radiculopathy 4. Bilateral lower extremity weakness due to disc herniation at L3 4 5. Degenerative disc disease L3 4 L4 5 L5-S1 6. Diabetes mellitus type 2. Hemoglobin A1c 7.3. Blood sugars better control. 7. Acute kidney injury suspect secondary to dehydration, improved. 8. History of chronic kidney disease stage III. 9. History of bilateral cataracts with lens implant. 10. Leukocytosis. Suspect reactive, improved. 11. Hypertension. Continue metoprolol 50 mg daily. Continue hydrochlorothiazide 25 mg daily. Will increase lisinopril from 5-10 mg daily. Will add Norvasc 5 mg daily for blood blood pressure control. Continue to monitor. Plan: Continue surgical management by surgical service. Continue current medications. Continue physical therapy. Continue supportive treatment and pain management. Continue GI and DVT prophylaxis. Encourage incentive spirometry use. Will repeat CBC and BMP in a.m. Possible discharge to ECF in next 24 hours. The above impression and plan have been discussed and directed by Dr. Brink. Riccardo BEAL acting as scribe for Dr. Brink.
[2016-12-04] MEDS: amLODIPine 5 MG TAB PO SCH (14:43)
[2016-12-04] MEDS: HYDROcodone/APAP 5-325MG 1 EACH TAB PO PRN ×2 (15:32→21:12)
[2016-12-04 17:14] LABS: Glucose,Whole Blood 57 mg/dL (75-99)
[2016-12-04 17:34] LABS: Glucose,Whole Blood 70 mg/dL (75-99)
[2016-12-04 20:08] LABS: Glucose,Whole Blood 174 mg/dL (75-99)
[2016-12-04] MEDS: DOCUSATE ORAL SOLN 100 MG/10 ML CUP PO SCH (21:01)
[2016-12-04] MEDS: ATORVASTATIN 10 MG TAB PO SCH (21:02)
[2016-12-05] MEDS: DIAZEPAM 5 MG TAB PO PRN ×2 (01:02→07:43)
[2016-12-05 07:18] LABS: Glucose,Whole Blood 171 mg/dL (75-99)
[2016-12-05] MEDS: SODIUM CHLORIDE 0.9% 1,000 ML IV SCH (07:19)
[2016-12-05 07:28] LABS: Calcium 9.5 mg/dL (8.4-10.2); Potassium 4.3 mmol/L (3.5-5.1)
[2016-12-05 07:36] LABS: Aty Lym Flag Slight; CH 31.8; CHCM 32.5; HCT 33.7 % (34.0-46.0); HDW 2.64; MCH 32.1 pg (25.0-35.0); MCHC 32.6 g/dL (31.0-37.0); MCV 98.4 fL (80.0-100.0); Mean Platelet Volume 7.6; RBC 3.43 m/uL (3.80-5.40); RDW 13.4 % (11.5-15.5); WBC 8.9 k/uL (3.8-10.6)
[2016-12-05] MEDS: INSULIN LISPRO (humaLOG) 300 UNIT/3 ML VIAL SQ SCH ×2 (07:45→12:33)
[2016-12-05] MEDS: INSULIN NPH/REG INSULIN 70/30 300 UNIT/3 ML VIAL SQ SCH ×2 (07:45→12:33)
[2016-12-05] MEDS: HEPARIN SODIUM,PORCINE 5,000 UNIT/ML 1 ML VIAL SQ SCH (07:46)
[2016-12-05] MEDS: LIDOCAINE 5% PATCH TOPICAL SCH (07:48)
[2016-12-05] MEDS: PANTOPRAZOLE 40 MG TABLET PO SCH (07:49)
[2016-12-05] MEDS: TIMOLOL 0.5% OPHTH DROPS 5 ML BTL BOTH EYES SCH (07:49)
[2016-12-05] MEDS: ASPIRIN 81 MG CHEW PO SCH (07:50)
[2016-12-05] MEDS: amLODIPine 5 MG TAB PO SCH (07:50)
[2016-12-05] MEDS: HYDROCHLOROTHIAZIDE 25 MG TAB PO SCH (07:50)
[2016-12-05] MEDS: METOPROLOL TARTRATE 50 MG TAB PO SCH (07:50)
[2016-12-05 08:00] LABS: Add Differential Manual Differential
[2016-12-05 08:03] LABS: Manual Review Performed; Nucleated Red Blood Cells 0 /100 WBC (0-0); Total Cells Counted 100
[2016-12-05 08:04] LABS: RBC Morphology Normal
--- NOTE | 2016-12-05 08:28 | P.PN ---
Progress Note - Text This is a pleasant 81-year-old female who presented with L3-4 herniated nucleus pulpolsus, spondylolisthesis, and severe spinal canal stenosis with lower extremity radiculopathy with weakness, urinary retention, and lumbar degenerative disc disease. She underwent a laminectomy and decompression with partial medial facetectomy at L3-4 performed on 11/30/2016. Postsurgically, she 's been slow to increase mobilization but states her symptoms have been improving over the weekend. She continues to have some right lower extremity radiculopathy but states overall her symptoms have been improving. She's been able to ambulate to the restroom without significant difficulty. She feels her mobilization is better as compared to yesterday. She been eating and voiding without difficulty but states she does not have much of an appetite. She states her symptoms are better controlled and she is ready to be discharged to a rehabilitation facility today. She was hoping to be discharged yesterday but continues to wait for approval by insurance. She states today she is hoping to be discharged to [facility] or [facility]. She feels rehabilitation provides the best opportunity to increase her strength and mobility independently prior to returning home. Case management is currently working on her placement. Condition on day of discharge is stable. Patient was cleared preoperatively for surgery by Dr. Stinson. Patient currently denies any nausea, vomiting, fever , or chills. Patient is eating and voiding freely without difficulty. Patient may shower Tegaderm dressing intact. Patient may remove Tegaderm dressing in 3 days and shower without a dressing at that time. Patient should keep Steri- Strips intact and allow them to fall off naturally. Patient should refrain from driving until at least after their first follow-up appointment in the office. Patient should avoid excessive bending, lifting, and twisting; no lifting greater than 10 pounds. She is currently admitted to medicine. She'll be discharge by medicine. A prescription for [place] 5 mg/325 mg 1 tab every 6 hours as needed for pain has been written and is in her chart for discharge. Medicine will prescribe other medications as well as finish her medical record for rehabilitation. Physical Exam Laminectomy/Discectomy: Status post surgical day number 3 Patient is awake, alert, and oriented 3; patient is sitting at the bedside without significant difficulty Vital signs stable Good chest excursion with deep inspiration and expiration Abdomen soft nontender Dorsiflexion, plantarflexion, and extensor hallucis longus positive sustained bilaterally No signs or symptoms of DVT; no calf pain Dressing is dry and intact; no erythema, purulence, or signs of infection Some evidence of dried blood at the dressing site Lidoderm patch placed on the right lower lumbar spine during physical examination No pain with internal and external rotation of the hips bilaterally Pneumatic cuffs intact bilateral lower extremities Assessment: L3-4 Laminectomy and decompression with partial medial facetectomy Low back pain Lower extremity radiculopathy with weakness Lumbar spinal canal stenosis Lumbar degenerative disc disease Plan: 1. Ambulate as tolerated; work with Physical Therapy to increase mobility and ambulation 2. Continue Pain control; prescription for [place] 5 mg/325 mg 1 tab every 6 hours as needed for pain dispense 90 (Ninety) has been written and is in her chart for discharge 3. Medical management can continue to manage patient for patient's other medical issues; medicine will plan to discharge patient on a feels she is medically cleared 4. From an orthopedic spine standpoint, patient is cleared for discharge to a rehabilitation facility 5. Patient can follow-up with Jeanmarie Holland PA-C or Dr. Rebel Wang at [facility] in 2-3 weeks following discharge 6. I have discussed this patient detail with Dr. Rebel Wang and he agrees with this plan
[2016-12-05 08:40] VITALS: RESP 18
[2016-12-05] MEDS ORDERED: LISINOPRIL 5 MG TAB PO SCH (09:00)
[2016-12-05] MEDS ORDERED: LISINOPRIL 10 MG TAB PO SCH (09:00)
--- NOTE | 2016-12-05 09:10 | XR ---
EXAMINATION TYPE: XR chest 1V DATE OF EXAM: 12/05/2016 8:55 AM COMPARISON: NONE HISTORY: ECF placement TECHNIQUE: Single frontal view of the chest is obtained. FINDINGS: There is no focal air space opacity, pleural effusion, or pneumothorax seen. The cardiac silhouette size is within normal limits. The osseous structures are intact. Postoperative change ov erlying the cervical spine. Arthropathy of the AC joints. The heart is at the upper limits of normal. IMPRESSION: No acute process.
[2016-12-05] MEDS ORDERED: POLYETHYLENE GLYCOL 3350 17 GM POWD.PACK PO STA (09:33)
[2016-12-05] MEDS: NA PHOS,M-B/NA PHOS,DI-BA 133 ML ENEMA RECTAL SCH ×2 (10:39→12:00)
[2016-12-05 11:05] LABS: Glucose,Whole Blood 226 mg/dL (75-99)
[2016-12-05] MEDS: CHOLECALCIFEROL 1,000 UNIT TAB PO SCH (12:00)
[2016-12-05] MEDS: FERROUS SULFATE 325 MG TAB PO SCH (12:00)
--- NOTE | 2016-12-05 12:55 | P.DS ---
Providers Date of admission: 11/29/16 19:56 Expected date of discharge: 12/05/16 Attending physician: Jarrett Stinson Consults: Dr. Wang Primary care physician: Josh Brink [place] [facility] Course: Patient is an 81-year-old female, patient of Dr. Brink in the outpatient setting admitted with intractable low back pain, weakness, and bilateral lower extremity radiculopathy. Patient was found to have evidence of an acute large extruded disc herniation at L3 4 with chronic changes at L3 4 L4 5 and L5-S1. Patient was evaluated by Dr. Wang from orthopedic service and underwent laminectomy and decompression with partial medial facetectomy L3 4; and discectomy for decompression L3 4 on 11/30/2012. Patient tolerated procedure well. On the day of discharge, patient was able to ambulate to the bathroom with walker. No signs of chills, fevers, nausea, vomiting, shortness of breath, chest pain, or abdominal pain. Patient had a bowel movement on the day of discharge. Patient is tolerating diet. Blood pressure better controlled with adjustment of medications. Patient was deemed stable for discharge to subacute rehab. Discharge diagnoses: 1. Intractable back pain suspect secondary to acute large extruded disc herniation L3 4, failed conservative treatment status post laminectomy and decompression with partial medial facetectomy L3 4; discectomy for decompression L3 4 and 11/30/2016. 2. 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 Low back pain with bilateral lower extremity radiculopathy 4. Bilateral lower extremity weakness due to disc herniation at L3 4 5. Degenerative disc disease L3 4 L4 5 L5-S1 6. Diabetes mellitus type 2. Hemoglobin A1c 7.3. 7. Acute kidney injury suspect secondary to dehydration, improved. 8. History of chronic kidney disease stage III. 9. History of bilateral cataracts with lens implant. 10. Leukocytosis. Suspect reactive, resolved. 11. Hypertension. The above impression and plan have been discussed and directed by Dr. Brink. Riccardo BEAL acting as scribe for Dr. Brink. Pertinent Studies: Lumbar spine x-ray; chest x-ray Procedures: Laminectomy and decompression with partial medial facetectomy L3 4; Discectomy for decompression L3 4 Patient Condition at Discharge: Good Plan - Discharge Summary New Discharge Prescriptions: Cyclobenzaprine [Flexeril] 5 mg PO TID PRN #21 tab PRN Reason: Muscle Spasm Diazepam [Valium] 5 mg PO QID PRN #28 tab PRN Reason: Anxiety HYDROcodone/APAP 5-325MG [[place] 5-325] 1 each PO Q6HR PRN #90 tab PRN Reason: Pain Discharge Medication List Aspirin 81 mg PO DAILY 04/06/16 [History] Cholecalciferol [Vitamin D3] 1,000 units PO DAILY 04/06/16 [History] Docusate [Colace] 50 mg PO HS 04/06/16 [History] Ferrous Sulfate [Iron (65 MG Elemental)] 325 mg PO DAILY 04/06/16 [History] [place]-3 Fatty Acids/Fish Oil [Fish Oil 1,000 mg Softgel] 1 cap PO DAILY [History] Simvastatin [Zocor] 10 mg PO HS 04/06/16 [History] Timolol 0.5% Ophth Soln [Timoptic 0.5% Ophth Soln] 1 drop BOTH EYES BID [History] Acetaminophen Tab [Tylenol] 1,000 mg PO Q6HR PRN 05/30/16 [History] Insulin NPH Hum/Reg Insulin Hm [NovoLIN 70-30 100 UNIT/ML VIAL] 30 unit SQ AC- SUPPER 10/13/16 [History] Lisinopril [Zestril] 5 mg PO DAILY #14 tab 10/18/16 [Rx] Cyclobenzaprine [Flexeril] 5 mg PO TID PRN #21 tab 12/04/16 [Rx] Diazepam [Valium] 5 mg PO QID PRN #28 tab 12/04/16 [Rx] HYDROcodone/APAP 5-325MG [[place] 5-325] 1 each PO Q6HR PRN #90 tab 12/04/16 [Rx] Hydrochlorothiazide [Hydrodiuril] 25 mg PO DAILY tab 12/04/16 [Rx] INSULIN LISPRO (humaLOG) [humaLOG (formulary)] 0 unit SQ ACHS vial 12/04/16 [Rx ] Insulin NPH/Reg Insulin 70/30 [humuLIN 70/30 VIAL] 26 unit SQ AC-LUNCH vial [Rx] Insulin NPH/Reg Insulin 70/30 [humuLIN 70/30 VIAL] 26 unit SQ W/BRKFST vial [Rx] Metoprolol Tartrate [Lopressor] 50 mg PO DAILY tab 12/04/16 [Rx] amLODIPine [Norvasc] 5 mg PO DAILY tab 12/05/16 [Rx] Follow up Appointment(s)/Referral(s): Jeanmarie Holland PAC [PHYSICIAN EMISSIONS TESTING AND REPAIR TECHNICIAN] - 2 Weeks (Patient may follow-up with Jeanmarie Holland PA-C or Dr. Rebel Wang at [facility] in 2-3 weeks following discharge. ) Josh Brink MD [Primary Care Provider] - 1-2 days Activity/Diet/Wound Care/Special Instructions: 1. Patient may shower Tegaderm dressing intact. 2. Patient may remove Tegaderm dressing in 3 days and shower without a dressing at that time. 3. Patient should keep Steri-Strips intact and allow them to fall off naturally. 4. Patient should refrain from driving until at least after their first follow- up appointment in the office. 5. Patient should avoid excessive bending, twisting, and lifting; no lifting greater than 10 pounds 6. Do not soak in tub Discharge Disposition: TRANSFER TO SNF/ECF
[2016-12-05 15:41] VITALS: BP 180/77; PULSE 73; TEMP 96.6
== END 2016-12-05 16:50 | DRG 519 ==
LOC: EC 07:43 → 3OBS 11:44 → OBSVTOIN 19:56 → 5ONC 11-30 18:54
PROVIDERS: ADMIT Family Medicine; ATTEND Family Medicine
PROC: 0SB20ZZ Excision of Lumbar Vertebral Disc, Open Approach (ICD-10-PCS; principal; 2016-11-30 07:30)
DX: M51.16 Intervertebral disc disorders with radiculopathy, lumbar region (principal); N17.9 Acute kidney failure, unspecified; E11.22 Type 2 diabetes mellitus with diabetic chronic kidney disease; E86.0 Dehydration; M48.06 Spinal stenosis, lumbar region; M43.16 Spondylolisthesis, lumbar region; N18.3 Chronic kidney disease, stage 3 (moderate); R26.2 Difficulty in walking, not elsewhere classified; I12.9 Hypertensive chronic kidney disease with stage 1 through stage 4 chronic kidney disease, or unspecified chronic kidney disease; R33.9 Retention of urine, unspecified; M19.90 Unspecified osteoarthritis, unspecified site; Z74.01 Bed confinement status; Z98.42 Cataract extraction status, left eye; Z98.41 Cataract extraction status, right eye; Z96.1 Presence of intraocular lens; Z98.1 Arthrodesis status; Z90.710 Acquired absence of both cervix and uterus; Z79.82 Long term (current) use of aspirin; Z79.4 Long term (current) use of insulin
CPT/HCPCS: 36415; 71010; 72020; 80048; 80053; 81003; 83036; 85025; 86850; 86900; 86901; 96374; 96376; 99284

== ENCOUNTER → 2016-12-29 | Outpatient (CLI) | payer MEDICARE, BC ==
--- NOTE | 2016-12-29 15:37 | US ---
EXAMINATION TYPE: US kidneys/renal and bladder DATE OF EXAM: 12/29/2016 3:22 PM COMPARISON: NONE CLINICAL HISTORY: Chronic Kidney Disease Stage 3 N18.3. No symptoms EXAM MEASUREMENTS: Right Kidney: 9.3 x 3.8 x 4.9 cm Left Kidney: 8.9 x 3.9 x 4.8 cm Right Kidney: wnl Left Kidney: wnl Bladder: wnl Bilateral Jets seen: no There is no evidence for hydronephrosis at this point in time. No nephrolithiasis is seen. No jovanni s are identified. The urinary bladder is anechoic. Neither ureteral jets are seen. IMPRESSION: NORMAL RENAL ULTRASOUND.
== END | disposition home or self-care (01) ==
LOC: RADUSWWP 15:06
PROVIDERS: ATTEND Internal Medicine
DX: N18.3 Chronic kidney disease, stage 3 (moderate) (principal)
CPT/HCPCS: 76770

== ENCOUNTER → 2017-02-16 | Outpatient (CLI) | payer MEDICARE, BC ==
[2017-02-16 08:36] LABS: Calcium 9.9 mg/dL (8.4-10.2); Magnesium 1.7 mg/dL (1.6-2.3); Phosphorous 5.6 mg/dL (2.5-4.5); Potassium 4.9 mmol/L (3.5-5.1); Total Bilirubin 0.5 mg/dL (0.2-1.3); Total Protein 8.1 g/dL (6.3-8.2); Uric Acid 9.6 mg/dL (3.7-7.4)
[2017-02-16 08:49] LABS: Appearance,Urine Clear (Clear); Bilirubin,Urine Negative (Negative); Glucose,Urine (UA) Negative (Negative); Ketones,Urine Negative (Negative); Leukocyte Esterase,Urine Trace (Negative); Mucus,Urine Rare /hpf; Nitrite,Urine Negative (Negative); Particle Count 817; Protein,Urine Negative (Negative); RBC,Urine 1 /hpf (0-5); Specific Gravity,Urine 1.004 (1.001-1.035); Squamous Epithelial Cell,Urine <1 /hpf (0-4); UA Billing (MACRO vs. MICRO) MICRO; Urobilinogen,Urine <2.0 mg/dL (<2.0); WBC,Urine 1 /hpf (0-5)
== END | disposition home or self-care (01) ==
LOC: LABWHC1 07:39
PROVIDERS: ATTEND Internal Medicine
DX: N18.3 Chronic kidney disease, stage 3 (moderate) (principal); N39.0 Urinary tract infection, site not specified; R80.9 Proteinuria, unspecified; E21.3 Hyperparathyroidism, unspecified; E55.9 Vitamin D deficiency, unspecified; M10.9 Gout, unspecified
CPT/HCPCS: 36415; 80053; 81001; 82043; 82306; 83735; 83970; 84100; 84550

== ENCOUNTER 2017-04-11 17:15 | Inpatient (IN) | payer MEDICARE, BC ==
[2017-04-11] MEDS ORDERED: ACETAMINOPHEN TAB 500 MG TAB PO STA (17:28)
[2017-04-11] MEDS ORDERED: SODIUM CHLORIDE 0.9% 500 ML IV ONE (17:28)
--- NOTE | 2017-04-11 17:35 | ED ---
Fall HPI - General Chief Complaint: Fall Stated Complaint: fall Time Seen by Provider: 04/11/17 17:17 Source: patient, EMS Mode of arrival: EMS - History of Present Illness Initial Comments: She fell in her house yesterday around 8 AM, she was not able to get up today until ambulance crew came in today to rescue her, and she fell face first she has a bruise of the face does complain about headache and some mild neck pain denies any chest pain no shortness of breath or abdominal pain no frequency urgency dysuria no weakness of one arm or one leg - Related Data Home Medications Medication Instructions Recorded Confirmed Aspirin 81 mg PO DAILY 04/06/16 04/11/17 Cholecalciferol [Vitamin D3] 2,000 units PO DAILY 04/06/16 04/11/17 Docusate [Colace] 50 mg PO HS 04/06/16 04/11/17 Ferrous Sulfate [Iron (65 MG 325 mg PO DAILY 04/06/16 04/11/17 Elemental)] [place]-3 Fatty Acids/Fish Oil [Fish 1 cap PO DAILY 04/06/16 04/11/17 Oil 1,000 mg Softgel] Simvastatin [Zocor] 10 mg PO HS 04/06/16 04/11/17 Timolol 0.5% Ophth Soln [Timoptic 1 drop BOTH EYES BID 04/06/16 04/11/17 0.5% Ophth Soln] Insulin NPH Hum/Reg Insulin Hm 30 unit SQ DAILY@1600 10/13/16 04/11/17 [NovoLIN 70-30 100 UNIT/ML VIAL] Diazepam [Valium] 5 mg PO BID PRN 04/11/17 04/11/17 HYDROcodone/APAP 7.5-325MG [[place] 1 tab PO Q8H PRN 04/11/17 04/11/17 7.5-325] Insulin NPH/Reg Insulin 70/30 26 unit SQ BID@0700,1100 04/11/17 04/11/17 [humuLIN 70/30 VIAL] Lisinopril [Zestril] 5 mg PO QAM 04/11/17 04/11/17 Previous Rx's Medication Instructions Recorded Cyclobenzaprine [Flexeril] 5 mg PO TID PRN #21 tab 12/04/16 Hydrochlorothiazide [Hydrodiuril] 25 mg PO DAILY tab 12/04/16 Metoprolol Tartrate [Lopressor] 50 mg PO DAILY tab 12/04/16 amLODIPine [Norvasc] 5 mg PO DAILY tab 12/05/16 Allergies Allergy/AdvReac Type Severity Reaction Status Date / Time Iodine and Iodide Containing Allergy Rash/Hives Verified 04/11/17 18:23 Produc Review of Systems ROS Statement: Those systems with pertinent positive or pertinent negative responses have been documented in the HPI. ROS Other: All systems not noted in ROS Statement are negative. Past Medical History Past Medical History: Diabetes Mellitus, Eye Disorder, Musculoskeletal Disorder , Osteoarthritis (OA), Renal Disease Additional Past Medical History / Comment(s): BACK PAIN WITH RADIATION BILATERAL LEGS, herniated discs, IDDM type II, CKD stage III, slight cardiac murmur, seasonal allergies, arthritis multiple joints. History of Any Multi-Drug Resistant Organisms: None Reported Past Surgical History: Back Surgery, Bladder Surgery, Hysterectomy, Orthopedic Surgery Additional Past Surgical History / Comment(s): mariela cataracts with lens implant, rt. thumb and wrist surgery, teeth removed, carpal tunnel surg. left and right, cervical fusion, multiple pain clinic procedures. Past Anesthesia/Blood Transfusion Reactions: No Reported Reaction Past Psychological History: No Psychological Hx Reported Smoking Status: Never smoker Past Alcohol Use History: None Reported Past Drug Use History: None Reported - Past Family History Mother History Unknown: Yes Family Medical History: No Reported History Father Family Medical History: Diabetes Mellitus General Exam - General Exam Comments Initial Comments: General: The patient is awake and alert, in no distress, and does not appear acutely ill. He looks pale GCS is 15 Skin: Skin is warm and dry and no rashes or lesions are noted. She has a bruise on her left side of the face Eye: Pupils are equal, round and reactive to light, extra-ocular movements are intact; there is normal conjunctiva bilaterally. Ears, nose, mouth and throat: There are moist mucous membranes and no oral lesions. Neck: The neck is tender at C5 and C6 Cardiovascular: There is a regular rate and rhythm. No murmur, rub or gallop is appreciated. Respiratory: To auscultation bilateral, no wheezing no rhonchi no distress respiratory frye noticed Gastrointestinal: Soft, non-distended, non-tender abdomen without masses or organomegaly noted. There is no rebound or guarding present. Bowel sounds are unremarkable. Back: There is no tenderness to palpation in the midline. There is no obvious deformity. Musculoskeletal: Normal ROM, no tenderness, There is no pedal edema. There is no calf tenderness or swelling. No cords were appreciated. Neurological: CN II-XII intact, Cranial nerves III through XII are intact. There are no obvious motor or sensory deficits. Coordination appears grossly intact. Speech is normal. Psychiatric: Cooperative, appropriate mood & affect, normal judgment. Limitations: no limitations Course Vital Signs 04/11/17 04/11/17 04/11/17 17:17 17:42 18:37 Temperature 97.8 F 97.4 F L Pulse Rate 83 Respiratory 16 18 Rate Blood Pressure 138/77 O2 Sat by Pulse 98 Oximetry 04/11/17 19:21 Temperature Pulse Rate 86 Respiratory 18 Rate Blood Pressure 115/55 O2 Sat by Pulse 98 Oximetry EKG is normal sinus rhythm ventricular rate 78 IA interval is 174 QRS duration is 98 QT/QTc is 48/465 review of this EKG shows ST and T-wave abnormality noticed a bit of a T-wave inversion in lead 2 and lead 3 noticed T-wave flattening in lead V4 V5 and V6 no ST elevation noticed she catch Medical Decision Making - Lab Data Result diagrams: 04/11/17 17:30 04/11/17 17:30 Lab Results 04/11/17 04/11/17 04/11/17 Range/Units 17:27 17:30 17:30 WBC 14.8 H (3.8-10.6) k/uL RBC 3.80 (3.80-5.40) m/uL Hgb 11.6 (11.4-16.0) gm/dL Hct 33.0 L (34.0-46.0) % MCV 86.8 (80.0-100.0) fL MCH 30.6 (25.0-35.0) pg MCHC 35.2 (31.0-37.0) g/dL RDW 12.8 (11.5-15.5) % Plt Count 608 H (150-450) k/uL Neutrophils % 75 % Lymphocytes % 18 % Monocytes % 5 % Eosinophils % 1 % Basophils % 0 % Neutrophils # 11.0 H (1.3-7.7) k/uL Lymphocytes # 2.6 (1.0-4.8) k/uL Monocytes # 0.7 (0-1.0) k/uL Eosinophils # 0.1 (0-0.7) k/uL Basophils # 0.0 (0-0.2) k/uL Sodium 132 L (137-145) mmol/L Potassium 4.6 (3.5-5.1) mmol/L Chloride 90 L (98-107) mmol/L Carbon Dioxide 26 (22-30) mmol/L Anion Gap 16 mmol/L BUN 28 H (7-17) mg/dL Creatinine 1.50 H (0.52-1.04) mg/dL Est GFR (MDRD) Af Amer 40 (>60 ml/min/1.73 sqM) Est GFR (MDRD) Non-Af 33 (>60 ml/min/1.73 sqM) Glucose 151 H (74-99) mg/dL POC Glucose (mg/dL) 146 H (75-99) mg/dL POC Glu Word Processor Operator ID Magdy, Liliana Calcium 9.8 (8.4-10.2) mg/dL Total Bilirubin 0.7 (0.2-1.3) mg/dL AST 16 (14-36) U/L ALT 24 (9-52) U/L Alkaline Phosphatase 91 (38-126) U/L Creatine Kinase 83 (30-135) U/L Troponin I (0.000-0.034) ng/mL Total Protein 7.6 (6.3-8.2) g/dL Albumin 4.3 (3.5-5.0) g/dL 04/11/17 Range/Units 17:30 WBC (3.8-10.6) k/uL RBC (3.80-5.40) m/uL Hgb (11.4-16.0) gm/dL Hct (34.0-46.0) % MCV (80.0-100.0) fL MCH (25.0-35.0) pg MCHC (31.0-37.0) g/dL RDW (11.5-15.5) % Plt Count (150-450) k/uL Neutrophils % % Lymphocytes % % Monocytes % % Eosinophils % % Basophils % % Neutrophils # (1.3-7.7) k/uL Lymphocytes # (1.0-4.8) k/uL Monocytes # (0-1.0) k/uL Eosinophils # (0-0.7) k/uL Basophils # (0-0.2) k/uL Sodium (137-145) mmol/L Potassium (3.5-5.1) mmol/L Chloride (98-107) mmol/L Carbon Dioxide (22-30) mmol/L Anion Gap mmol/L BUN (7-17) mg/dL Creatinine (0.52-1.04) mg/dL Est GFR (MDRD) Af Amer (>60 ml/min/1.73 sqM) Est GFR (MDRD) Non-Af (>60 ml/min/1.73 sqM) Glucose (74-99) mg/dL POC Glucose (mg/dL) (75-99) mg/dL POC Glu Word Processor Operator ID Calcium (8.4-10.2) mg/dL Total Bilirubin (0.2-1.3) mg/dL AST (14-36) U/L ALT (9-52) U/L Alkaline Phosphatase (38-126) U/L Creatine Kinase (30-135) U/L Troponin I 0.020 (0.000-0.034) ng/mL Total Protein (6.3-8.2) g/dL Albumin (3.5-5.0) g/dL Disposition Clinical Impression: Fall, Dehydration, Sinusitis Disposition: HOME SELF-CARE Condition: Good Referrals: Josh Brink MD [Primary Care Provider] - 1-2 days
[2017-04-11 17:37] LABS: Glucose,Whole Blood 146 mg/dL (75-99)
[2017-04-11 17:40] LABS: Basophils % (A) 0 %; CHCM 35.8; Eosinophils # (A) 0.1 k/uL (0-0.7); Eosinophils % (A) 1 %; HDW 2.41; HGB 11.6 gm/dL (11.4-16.0); Luc # (Auto) 0.29; Luc % (Auto) 2; Lymphocytes # (A) 2.6 k/uL (1.0-4.8); Lymphocytes % (A) 18 %; MCH 30.6 pg (25.0-35.0); MCHC 35.2 g/dL (31.0-37.0); MCV 86.8 fL (80.0-100.0); Mean Platelet Volume 6.5; Monocytes # (A) 0.7 k/uL (0-1.0); Monocytes % (A) 5 %; Neutrophils % (A) 75 %; RDW 12.8 % (11.5-15.5); WBC 14.8 k/uL (3.8-10.6); WBC (Perox) 14.52
[2017-04-11 17:49] LABS: Calcium 9.8 mg/dL (8.4-10.2); Potassium 4.6 mmol/L (3.5-5.1); Total Bilirubin 0.7 mg/dL (0.2-1.3); Total Protein 7.6 g/dL (6.3-8.2)
--- NOTE | 2017-04-11 18:19 | XR ---
EXAMINATION TYPE: XR hand complete RT DATE OF EXAM: 04/11/2017 COMPARISON: NONE HISTORY: Pain and injury TECHNIQUE: 3 views FINDINGS: There is generalized narrowing of the MP and IP joint spaces. There are erosions and cystic changes at the IP joints. There is narrowing of scaphoid trapezium joint space. I see no fracture. T here is mild subluxation at the second and third MP joints. IMPRESSION: No fracture. There are changes of inflammatory arthritis in the IP joints. This could be erosive osteoarthritis or psoriatic arthritis. No fracture seen.
--- NOTE | 2017-04-11 18:30 | CT ---
EXAMINATION TYPE: CT brain lyndsay pompa con DATE OF EXAM: 04/11/2017 COMPARISON: CT brain 02/19/2015 HISTORY: Fall today. Injury to left sided maxilla with bruising. CT DLP: 1403.70 mGycm Automated exposure control for dose reduction was used. TECHNIQUE: CT scan of the head and cervical spine are performed without contrast. FINDINGS: There is mild cerebral cortical atrophy. There is no mass effect nor midline shift. There is no sign of intracranial hemorrhage. There is opacification of the left side of sphenoid sinus. I see no bone destruction. The calvarium is intact. There is old anterior fusion surgery at C6-7. Vertebra have normal alignment. There is mild anterior spurring from C3 to C7. Facet joints are intact. There is mild hypertrophic facet arthropathy. The sk ull base is intact. IMPRESSION: Mild atrophy. There is a changing pattern of sinusitis compared to old exam. Left-sided sphenoid sinu sitis. Spondylotic changes in the cervical spine. No acute bony abnormality.
--- NOTE | 2017-04-11 18:33 | CT ---
EXAMINATION TYPE: CT facial bones wo con DATE OF EXAM: 04/11/2017 COMPARISON: NONE HISTORY: Fall today. Injury to left sided maxilla with bruising. CT DLP: 556.50 mGycm Automated exposure control for dose reduction was used. TECHNIQUE: Multiple axial sections were obtained from the bottom of the mandible to the top of the fr ontal sinuses with no contrast. FINDINGS: There is opacification of the left side of the sphenoid sinus. The other paranasal sinuses are normally aerated. I see no focal bone destruction. Maxilla is intact. There is no evidence of blo wout fracture. There is no evidence of an orbital mass. Nasal bone is intact. Zygomatic arches appear normal. The mandible is intact. IMPRESSION: Left-sided sphenoid sinusitis. No fracture seen.
[2017-04-11] MEDS: SODIUM CHLORIDE 0.9% 1,000 ML IV ONE (18:37)
--- NOTE | 2017-04-11 19:11 | XR ---
EXAMINATION TYPE: XR Hip Complete LT DATE OF EXAM: 04/11/2017 COMPARISON: NONE HISTORY: Hip pain TECHNIQUE: 2 views FINDINGS: I see no fracture nor dislocation. Hip joint space is fairly normal. There is vascular calc ification. IMPRESSION: No acute abnormality of the left hip.
[2017-04-11] MEDS ORDERED: SODIUM CHLORIDE 0.9% 1,000 ML IV ONE (20:26)
[2017-04-11] MEDS ORDERED: DIAZEPAM 5 MG TAB PO PRN (20:31)
[2017-04-11] MEDS ORDERED: HYDROcodone/APAP 7.5-325MG 1 EACH TAB PO PRN (20:31)
[2017-04-11] MEDS ORDERED: CYCLOBENZAPRINE 5 MG TAB PO PRN (20:31)
[2017-04-11 22:49] LABS: Glucose,Whole Blood 135 mg/dL (75-99)
[2017-04-11 23:11] VITALS: BMI 30.9
[2017-04-11] MEDS: ATORVASTATIN 10 MG TAB PO SCH (23:23)
[2017-04-11] MEDS: DOCUSATE ORAL SOLN 100 MG/10 ML CUP PO SCH (23:23)
[2017-04-11] MEDS: TIMOLOL 0.5% OPHTH DROPS 5 ML BTL BOTH EYES SCH (23:24)
[2017-04-11] MEDS: AMOXICILLIN 500 MG CAP PO SCH (23:24)
[2017-04-12] MEDS ORDERED: INSULIN LISPRO (humaLOG) 300 UNIT/3 ML VIAL SQ SCH (07:30)
[2017-04-12 08:03] LABS: Glucose,Whole Blood 160 mg/dL (75-99)
[2017-04-12] MEDS: INSULIN NPH/REG INSULIN 70/30 300 UNIT/3 ML VIAL SQ SCH ×3 (08:15→15:53)
[2017-04-12] MEDS: INSULIN LISPRO (humaLOG) 300 UNIT/3 ML VIAL SQ SCH ×4 (08:16→20:57)
[2017-04-12] MEDS: AMOXICILLIN 500 MG CAP PO SCH ×2 (08:18→15:53)
[2017-04-12] MEDS: amLODIPine 5 MG TAB PO SCH (08:18)
[2017-04-12] MEDS: METOPROLOL TARTRATE 50 MG TAB PO SCH (08:19)
[2017-04-12] MEDS: CHOLECALCIFEROL 1,000 UNIT TAB PO SCH (08:19)
[2017-04-12] MEDS: FERROUS SULFATE 325 MG TAB PO SCH (08:19)
[2017-04-12] MEDS: HYDROCHLOROTHIAZIDE 25 MG TAB PO SCH (08:19)
[2017-04-12] MEDS: ASPIRIN 81 MG CHEW PO SCH (08:19)
[2017-04-12] MEDS: TIMOLOL 0.5% OPHTH DROPS 5 ML BTL BOTH EYES SCH ×2 (08:20→20:58)
[2017-04-12] MEDS ORDERED: NON-FORMULARY DRUG (Omega-3 Fatty Acids/Fish Oil [Fish Oil 1,000 Mg Softgel] 1 CAP) PO SCH (09:00)
[2017-04-12 10:33] LABS: Hemoglobin A1C 7.8 % (4.2-6.1)
[2017-04-12 11:19] LABS: Glucose,Whole Blood 243 mg/dL (75-99)
[2017-04-12 17:16] LABS: Glucose,Whole Blood 132 mg/dL (75-99)
--- NOTE | 2017-04-12 18:23 | P.HPIM ---
History of Present Illness H&P Date: 04/12/17 Chief Complaint: Syncopal episode with fall, patient lied on for almost 24 hours Leeanne is an 81-year-old female well-known to the practice. We'll presented to the emergency room at [facility] subsequent to a fall around 8 AM yesterday. Patient had fallen on the floor and remained there approximately 24 hours, until a dyehouse worker at the [facility] home where she lives over heard her hollering for help. He called an ambulance at which time she was subsequently brought to [facility]. Patient had falls on the face bruising on the face mild neck pain denies chest pain denies shortness of breath. However, patient states that she seems to just be moving nicely and all of a sudden she feels like she is going to black out and falls on the floor. Patient denies chest pain denies nausea denies vomiting patient recently underwent kyphoplasty for a fractured vertebral which has been causing him no problem and no problem after the fall. Patient has history of diabetes sugars are well controlled, hypertension blood pressure is well controlled hypercholesterolemia cholesterol has been well controlled Review of Systems Ears, nose, mouth and throat: Reports as per HPI Cardiovascular: Reports lightheadedness, Reports syncope Respiratory: Reports as per HPI Gastrointestinal: Reports as per HPI Genitourinary: Reports as per HPI (Mild diabetic renal insufficiency) Menstruation: Reports as per HPI Musculoskeletal: Reports as per HPI Integumentary: Reports as per HPI, Reports unusual bruising (Secondary to fall) Neurological: Reports as per HPI, Reports syncope Psychiatric: Reports as per HPI Endocrine: Reports polydipsia, Reports polyphagia, Reports polyuria Past Medical History Past Medical History: Diabetes Mellitus, Eye Disorder, Musculoskeletal Disorder , Osteoarthritis (OA), Renal Disease Additional Past Medical History / Comment(s): BACK PAIN WITH RADIATION , herniated discs, IDDM type II, CKD stage III, slight cardiac murmur, seasonal allergies, arthritis multiple joints. History of Any Multi-Drug Resistant Organisms: None Reported Past Surgical History: Back Surgery, Bladder Surgery, Hysterectomy, Orthopedic Surgery Additional Past Surgical History / Comment(s): mariela cataracts with lens implant, rt. thumb and wrist surgery, teeth removed, carpal tunnel surg. left and right, cervical fusion, multiple pain clinic procedures. Past Anesthesia/Blood Transfusion Reactions: No Reported Reaction Past Psychological History: No Psychological Hx Reported Additional Psychological History / Comment(s): Pt resides alone in her apartment. Smoking Status: Never smoker Past Alcohol Use History: None Reported Past Drug Use History: None Reported - Past Family History Mother History Unknown: Yes Family Medical History: No Reported History Father Family Medical History: Diabetes Mellitus Medications and Allergies Home Medications Medication Instructions Recorded Confirmed Type Aspirin 81 mg PO DAILY 04/06/16 04/11/17 History Cholecalciferol [Vitamin D3] 2,000 units PO DAILY 04/06/16 04/11/17 History Docusate [Colace] 50 mg PO HS 04/06/16 04/11/17 History Ferrous Sulfate [Iron (65 MG 325 mg PO DAILY 04/06/16 04/11/17 History Elemental)] [place]-3 Fatty Acids/Fish Oil [Fish 1 cap PO DAILY 04/06/16 04/11/17 History Oil 1,000 mg Softgel] Simvastatin [Zocor] 10 mg PO HS 04/06/16 04/11/17 History Timolol 0.5% Ophth Soln [Timoptic 1 drop BOTH EYES BID 04/06/16 04/11/17 History 0.5% Ophth Soln] Insulin NPH Hum/Reg Insulin Hm 30 unit SQ DAILY@1600 10/13/16 04/11/17 History [NovoLIN 70-30 100 UNIT/ML VIAL] Diazepam [Valium] 5 mg PO BID PRN 04/11/17 04/11/17 History HYDROcodone/APAP 7.5-325MG [[place] 1 tab PO Q8H PRN 04/11/17 04/11/17 History 7.5-325] Insulin NPH/Reg Insulin 70/30 26 unit SQ BID@0700,1100 04/11/17 04/11/17 History [humuLIN 70/30 VIAL] Lisinopril [Zestril] 5 mg PO QAM 04/11/17 04/11/17 History Allergies Allergy/AdvReac Type Severity Reaction Status Date / Time Iodine and Iodide Containing Allergy Rash/Hives Verified 04/11/17 18:23 Produc Physical Exam Osteopathic Statement: *. No significant issues noted on an osteopathic structural exam other than those noted in the History and Physical/Consult. Vitals: Vital Signs Temp Pulse Pulse Pulse Resp BP BP 04/12/17 15:00 97.8 F 59 L 18 108/53 04/12/17 07:00 97.0 F L 68 18 115/48 04/12/17 04:00 20 04/12/17 01:00 97.1 F L 77 20 128/63 04/12/17 00:00 20 04/11/17 22:35 97.5 F L 87 16 159/68 04/11/17 21:42 78 18 106/54 04/11/17 20:12 84 18 114/57 04/11/17 19:21 86 18 115/55 04/11/17 18:37 97.4 F L 83 18 138/77 Pulse Ox 04/12/17 15:00 98 04/12/17 07:00 99 04/12/17 04:00 04/12/17 01:00 98 04/12/17 00:00 04/11/17 22:35 100 04/11/17 21:42 95 04/11/17 20:12 98 04/11/17 19:21 98 04/11/17 18:37 98 Intake and Output 04/12/17 04/12/17 04/12/17 06:59 14:59 22:59 Intake Total 800 800 Balance 800 800 Intake: IV 800 800 Sodium Chloride 0.9% 1, 800 800 000 ml @ 100 mls/hr IV . Q10H ONE Rx#:[id number] Other: Voiding Method Toilet Diaper Incontinent # Voids 2 1 Weight 74.389 kg Patient Weight 04/13/17 06:59 Weight 74.389 kg General: [Patient awake, alert and oriented times 3. Patient in no acute distress.] HEENT: [PERRL. EOMI. No pharyngeal erythema or exudate.] Patient has a bruise on the left side of her face Neck: [No adenopathy.] Cardiac: [Heart regular in rate and rhythm. No S3. No S4. No clicks, rubs. No murmur.] Lungs: [Clear to auscultation bilaterally.] Abdomen: [No mass. No organomegaly. Bowel sounds presnt and normoactive in all 4 quadrants.] Extremes: [No edema no cyanosis no claudication normal pulses] : [] Musculoskeletal: [No joint erythema, edema or tenderness.] Skin: [No rash.] Neurologic: [No lateralizing deficits. CN II - XII grossly intact.] No motor or sensory defects, coordination appears grossly intact. Speech is normal Lymphatic: [No adenopathy.] Results CBC & Chem 7: 04/11/17 17:30 04/11/17 17:30 Labs: Abnormal Lab Results - Last 24 Hours (Table) 04/11/17 04/11/17 04/12/17 Range/Units 17:30 22:45 08:01 POC Glucose (mg/dL) 135 H 160 H (75-99) mg/dL Hemoglobin A1c 7.8 H (4.2-6.1) % 04/12/17 04/12/17 Range/Units 11:16 17:13 POC Glucose (mg/dL) 243 H 132 H (75-99) mg/dL Hemoglobin A1c (4.2-6.1) % CT Scan - head: report reviewed Thrombosis Risk Factor Assmnt - Choose All That Apply Each Factor Represents 1 point: Age 41-60 years, Obesity (BMI >25) Other Risk Factors: Yes Each Risk Factor Represents 2 Points: Age 61-74 years Each Risk Factor Represents 3 Points: Age 75 years or older Thrombosis Risk Factor Assessment Total Risk Factor Score: 7 Thrombosis Risk Factor Assessment Level: High Risk Assessment and Plan (1) Syncope and collapse Narrative/Plan: Carotid Dopplers, heart is being monitored for arrhythmia as well Monitor patient for postural hypotension secondary to beta shakeel ( doubt) Status: Acute (2) Dehydration Narrative/Plan: Resolved IV KVO Status: Acute (3) Fall Narrative/Plan: Fall was secondary to #1 Cardiology consult obtained to rule out arrhythmia Neurology consult also obtained to rule in or rule out neurologic source of syncope Status: Acute (4) Lumbar disc herniation Narrative/Plan: Patient does not complain of pain, surgical procedure performed within the last year Status: Acute (5) Lumbar spinal stenosis Narrative/Plan: As stated above procedure performed by Dr. Wang patient has been symptom free Status: Acute Time with Patient: Greater than 30
[2017-04-12 20:07] LABS: Glucose,Whole Blood 122 mg/dL (75-99)
--- NOTE | 2017-04-12 20:28 | US ---
EXAMINATION TYPE: US carotid duplex BILAT DATE OF EXAM: 04/12/2017 COMPARISON: Prior in PACS CLINICAL HISTORY: Syncopal episodes. EXAM MEASUREMENTS: RIGHT: Peak Systolic Velocity (PSV) cm/sec ----- Right CCA: 72.6 ----- Right ICA: 104.6 ----- Right ECA: 52.6 ICA/CCA ratio: 1.4 RIGHT: End Diastole cm/sec ----- Right CCA: 5.7 ----- Right ICA: 23.1 ----- Right ECA: 6.5 LEFT: Peak Systolic Velocity (PSV) cm/sec ----- Left CCA: 56.4 ----- Left ICA: 75.8 ----- Left ECA: 139.1 ICA/CCA ratio: 1.3 LEFT: End Diastole cm/sec ----- Left CCA: 6.3 ----- Left ICA: 9.5 ----- Left ECA: 13.7 VERTEBRALS (direction of flow): Right Vertebral: Antegrade Left Vertebral: Antegrade Mild amount of plaque visualized bilateral bulbs, elevated velocity visualized in the left ECA IMPRESSION: There is slight elevated left external carotid artery velocity consistent with 70% steno sis. Images and measurements suggest 30-40% stenosis in both internal carotid arteries. There is ante grade flow in the vertebral arteries. Criteria for Assigning % of Stenosis / Diameter reduction (Estimation based on the indirect measurements of the internal carotid artery velocities (ICA PSV). 1. Normal (no stenosis)=ICA PSV < 125 cm/s: ratio < 2.0: ICA EDV<40 cm/s. 2. Less than 50% stenosis=ICA PSV < 125 cm/s: ratio < 2.0: ICA EDV<40 cm/s. 3. 50 to 69% stenosis=ICA PSV of 125 to 230 cm/s: ration 2.0 ? 4.0: ICA EDV 40-100 cm/s. 4. Greater than 70% stenosis to near occlusion= ICA PSV > 230 cm/s: ratio > 4.0: ICA EDV > 100 cm/s. 5. Near occlusion= ICA PSV velocities may be low or undetectable: variable ratio and ICA EDV. 6. Total occlusion=unable to detect flow.
[2017-04-12] MEDS: ATORVASTATIN 10 MG TAB PO SCH (20:58)
[2017-04-12] MEDS: DOCUSATE ORAL SOLN 100 MG/10 ML CUP PO SCH (20:58)
[2017-04-12] MEDS: SODIUM CHLORIDE 0.9% 1,000 ML IV ONE (21:01)
[2017-04-13] MEDS: AMOXICILLIN 500 MG CAP PO SCH ×4 (00:45→23:30)
[2017-04-13 07:16] LABS: Glucose,Whole Blood 125 mg/dL (75-99)
[2017-04-13] MEDS: INSULIN LISPRO (humaLOG) 300 UNIT/3 ML VIAL SQ SCH ×4 (07:20→21:03)
[2017-04-13] MEDS: INSULIN NPH/REG INSULIN 70/30 300 UNIT/3 ML VIAL SQ SCH ×3 (07:51→17:49)
[2017-04-13] MEDS: CHOLECALCIFEROL 1,000 UNIT TAB PO SCH (09:17)
[2017-04-13] MEDS: METOPROLOL TARTRATE 50 MG TAB PO SCH (09:17)
[2017-04-13] MEDS: FERROUS SULFATE 325 MG TAB PO SCH (09:18)
[2017-04-13] MEDS: HYDROCHLOROTHIAZIDE 25 MG TAB PO SCH (09:18)
[2017-04-13] MEDS: ASPIRIN 81 MG CHEW PO SCH (09:18)
[2017-04-13] MEDS: amLODIPine 5 MG TAB PO SCH (09:18)
[2017-04-13] MEDS: TIMOLOL 0.5% OPHTH DROPS 5 ML BTL BOTH EYES SCH ×2 (09:19→21:02)
--- NOTE | 2017-04-13 10:16 | ECHOF ---
Referral Reason: MEASUREMENTS -------- HEIGHT: 154.9 cm WEIGHT: 74.4 kg BP: 111/54 IVSd: 1.2 cm (0.6 - 1.1) LVIDd: 2.8 cm (3.9 - 5.3) LVPWd: 1.4 cm (0.6 - 1.1) IVSs: 1.8 cm LVIDs: 1.4 cm LVPWs: 1.9 cm Ao Diam: 3.1 cm (2.0 - 3.7) AV Cusp: 1.3 cm (1.5 - 2.6) LA Diam: 4.0 cm (2.7 - 3.8) MV EXCURSION: 12.495 mm (> 18.000) MV EF SLOPE: 61 mm/s (70 - 150) EPSS: 0.5 cm MV E Wily: 1.08 m/s MV DecT: 250 ms MV A Wily: 1.37 m/s MV E/A Ratio: 0.79 AV maxP.41 mmHg AV meanP.10 mmHg AR PHT: 433 ms RAP: 5.00 mmHg RVSP: 11.33 mmHg FINDINGS -------- Sinus rhythm. This was a technically good study. There is mild concentric left ventricular hypertrophy. Overall left ventricular systolic function is normal with, an EF between 55 - 60 %. The right ventricle is normal in size and function. The left atrium is mildly dilated. The right atrium is normal in size. Aortic valve is trileaflet and is moderately thickened. Trace amount of aortic regurgitation. There is moderate aortic stenosis present. Peak/mean gradient across the Aortic Valve is 26.41mmHg / 15.10mmHg. The mitral valve leaflets are mildly thickened. Mild mitral annular calcification present. Mild mitral regurgitation is present. Mild tricuspid regurgitation present. The right ventricular systolic pressure, as measured by Doppler, is 11.33mmHg. Pulmonic valve appears structurally normal. The aortic root size is normal. The pericardium is normal. CONCLUSIONS -------- 1. Sinus rhythm. 2. There is moderate aortic stenosis present. 3. Peak/mean gradient across the Aortic Valve is 26.41mmHg / 15.10mmHg. 4. The mitral valve leaflets are mildly thickened. 5. Mild mitral annular calcification present. 6. Mild mitral regurgitation is present. 7. Mild tricuspid regurgitation present. 8. The right ventricular systolic pressure, as measured by Doppler, is 11.33mmHg. 9. Pulmonic valve appears structurally normal. 10. The aortic root size is normal. 11. The pericardium is normal. 12. This was a technically good study. 13. There is mild concentric left ventricular hypertrophy. 14. Overall left ventricular systolic function is normal with, an EF between 55 - 60 %. 15. The right ventricle is normal in size and function. 16. The left atrium is mildly dilated. 17. The right atrium is normal in size. 18. Aortic valve is trileaflet and is moderately thickened. 19. Trace amount of aortic regurgitation. MANAGER DIABETES: Evette Stanley RDCS
[2017-04-13 11:10] LABS: Glucose,Whole Blood 132 mg/dL (75-99)
--- NOTE | 2017-04-13 11:10 | P.CRDCN ---
History of Present Illness Consult date: 04/13/17 Consult reason: sycope History of present illness: 81-year-old lady with history of diabetes and hypertension presented to Hospital having had an episode of fall and loss of consciousness. She tells me that she was sitting suddenly blanked out and went down. She denies chest pain difficulty in breathing palpitations dizziness or syncope. There is no history of focal neurological deficits there is no history of seizure disorder there is no history of coronary artery disease congestive heart failure R valvular heart disease. An EKG on her shows sinus rhythm nonspecific interventricular conduction delay and extensive ST-T wave changes. An old EKG showed sinus rhythm with left bundle branch block. I have one set of troponin that is negative. The d-dimer was not done. Patient tells me that she checked her blood sugar that morning and it was normal and does not think her syncopal event is related to hypoglycemia. I reviewed the echocardiogram that she had it shows normal LV systolic function with moderate stenosis of the aortic valve. At the time of my evaluation she is comfortable at rest and is free of symptoms is alert and very intelligent in her answers. I will obtain a d-dimer and another set of troponin. I reviewed her rhythm strips and she has been in sinus rhythm without any documented bradycardia arrhythmia. I reviewed her echocardiogram. I'm going to obtain orthostatics and ambulate and see how she does. His workup is negative we can consider an outpatient Lexiscan on her to complete her workup. Review of Systems Constitutional: Denies chills. Denies fever. Eyes: Denies blurred vision. Denies pain. Ears, nose, mouth and throat: Denies headache. Denies sore throat. Cardiovascular: Denies chest pain. Denies shortness of breath. Respiratory: Denies cough. Gastrointestinal: Denies abdominal pain. Denies diarrhea. Denies nausea. Denies vomiting. Musculoskeletal: Denies myalgias. Patient had a fall and mild trauma to her face Integumentary: Denies pruritus. Denies rash. Neurological: Denies numbness. Denies weakness. syncope Psychiatric: Denies anxiety. Denies depression. Endocrine: Denies fatigue. Denies weight change. Genitourinary: Denies burning, hematuria, frequency of urination. Hematological: No anemia or excess bleeding. Past Medical History Past Medical History: Diabetes Mellitus, Eye Disorder, Musculoskeletal Disorder , Osteoarthritis (OA), Renal Disease Additional Past Medical History / Comment(s): BACK PAIN WITH RADIATION , herniated discs, IDDM type II, CKD stage III, slight cardiac murmur, seasonal allergies, arthritis multiple joints. History of Any Multi-Drug Resistant Organisms: None Reported Past Surgical History: Back Surgery, Bladder Surgery, Hysterectomy, Orthopedic Surgery Additional Past Surgical History / Comment(s): mariela cataracts with lens implant, rt. thumb and wrist surgery, teeth removed, carpal tunnel surg. left and right, cervical fusion, multiple pain clinic procedures. Past Anesthesia/Blood Transfusion Reactions: No Reported Reaction Past Psychological History: No Psychological Hx Reported Additional Psychological History / Comment(s): Pt resides alone in her apartment. Smoking Status: Never smoker Past Alcohol Use History: None Reported Past Drug Use History: None Reported - Past Family History Mother History Unknown: Yes Family Medical History: No Reported History Father Family Medical History: Diabetes Mellitus Medications and Allergies Home Medications Medication Instructions Recorded Confirmed Type Aspirin 81 mg PO DAILY 04/06/16 04/11/17 History Cholecalciferol [Vitamin D3] 2,000 units PO DAILY 04/06/16 04/11/17 History Docusate [Colace] 50 mg PO HS 04/06/16 04/11/17 History Ferrous Sulfate [Iron (65 MG 325 mg PO DAILY 04/06/16 04/11/17 History Elemental)] [place]-3 Fatty Acids/Fish Oil [Fish 1 cap PO DAILY 04/06/16 04/11/17 History Oil 1,000 mg Softgel] Simvastatin [Zocor] 10 mg PO HS 04/06/16 04/11/17 History Timolol 0.5% Ophth Soln [Timoptic 1 drop BOTH EYES BID 04/06/16 04/11/17 History 0.5% Ophth Soln] Insulin NPH Hum/Reg Insulin Hm 30 unit SQ DAILY@1600 10/13/16 04/11/17 History [NovoLIN 70-30 100 UNIT/ML VIAL] Diazepam [Valium] 5 mg PO BID PRN 04/11/17 04/11/17 History HYDROcodone/APAP 7.5-325MG [[place] 1 tab PO Q8H PRN 04/11/17 04/11/17 History 7.5-325] Insulin NPH/Reg Insulin 70/30 26 unit SQ BID@0700,1100 04/11/17 04/11/17 History [humuLIN 70/30 VIAL] Lisinopril [Zestril] 5 mg PO QAM 04/11/17 04/11/17 History Allergies Allergy/AdvReac Type Severity Reaction Status Date / Time Iodine and Iodide Containing Allergy Rash/Hives Verified 04/11/17 18:23 Produc Physical Exam Vitals: Vital Signs Temp Pulse Resp BP Pulse Ox 04/13/17 07:00 97.9 F 70 18 146/68 97 04/12/17 20:45 97.0 F L 66 16 111/54 100 04/12/17 20:00 16 04/12/17 15:00 97.8 F 59 L 18 108/53 98 Intake and Output 04/12/17 04/13/17 04/13/17 22:59 06:59 14:59 Intake Total 200 1200 Balance 200 1200 Intake: Intake, IV Titration 1200 Amount Sodium Chloride 0.9% 1, 1200 000 ml @ 100 mls/hr IV . Q10H ONE Rx#:[id number] Oral 200 Other: # Voids 1 2 General: The patient is awake and alert, in no distress, and does not appear acutely ill. Skin: Skin is warm and dry and no rashes or lesions are noted. Ecchymosis over face Eye: Pupils are equal, round and reactive to light, extra-ocular movements are intact; there is normal conjunctiva bilaterally. Ears, nose, mouth and throat: There are moist mucous membranes and no oral lesions. Neck: The neck is supple, there is no tenderness or JVD. Cardiovascular: [ There is a regular rate and rhythm.] Ejection systolic murmur in the aortic area Respiratory: Lungs are clear to auscultation, respirations are non-labored, breath sounds are equal. Gastrointestinal: Soft, non-distended, non-tender abdomen without masses or organomegaly noted. There is no rebound or guarding present. Bowel sounds are unremarkable. Back: There is no tenderness to palpation in the midline. There is no obvious deformity. Musculoskeletal: Normal ROM, no tenderness, There is no pedal edema. There is no calf tenderness or swelling. Extremities:[ No edema.] Vascular: [Femoral pulse is normal.][ Posterior tibial pulses are normal .][ Dorsalis pedis is palpable.] Neurological: CN II-XII intact. There are no obvious motor or sensory deficits. Speech is normal. Psychiatric: Cooperative, appropriate mood & affect, normal judgment. Results 04/11/17 17:30 04/11/17 17:30 Current Medications Generic Name Dose Route Start Last Admin Trade Name Freq PRN Reason Stop Dose Admin Hydrocodone Bitart/Acetaminophen 1 each 04/11/17 20:31 [place] 7.5-325 PO Q8H PRN Pain Amlodipine Besylate 5 mg 04/12/17 09:00 04/13/17 09:18 Norvasc PO 5 mg DAILY GAETANO Administration Amoxicillin 500 mg 04/12/17 00:00 04/13/17 09:17 Amoxicillin PO 500 mg Q8HR GAETANO Administration Aspirin 81 mg 04/12/17 09:00 04/13/17 09:18 Aspirin PO 81 mg DAILY GAETANO Administration Atorvastatin Calcium 10 mg 04/11/17 21:00 04/12/17 20:58 Lipitor PO 10 mg HS [facility] Administration Cholecalciferol 2,000 unit 04/12/17 09:00 04/13/17 09:17 Vitamin D3 PO 2,000 unit DAILY GAETANO Administration Cyclobenzaprine HCl 5 mg 04/11/17 20:31 Flexeril PO TID PRN Muscle Spasm Diazepam 5 mg 04/11/17 20:31 Valium PO BID PRN Anxiety Docusate Sodium 50 mg 04/11/17 21:00 04/12/17 20:58 Colace Oral Soln PO 50 mg HS GAETANO Administration Ferrous Sulfate 325 mg 04/12/17 09:00 04/13/17 09:18 Feosol PO 325 mg DAILY GAETANO Administration Hydrochlorothiazide 25 mg 04/12/17 09:00 04/13/17 09:18 Hydrodiuril PO 25 mg DAILY GAETANO Administration Insulin Human Isoph/Insulin Regular 30 unit 04/12/17 16:00 04/12/17 15:53 Humulin 70/30 Vial SQ 30 unit DAILY@1600 [facility] Administration Insulin Human Isoph/Insulin Regular 26 unit 04/12/17 07:00 04/13/17 07:51 Humulin 70/30 Vial SQ 26 unit BID@0700,1100 [facility] Administration Insulin Human Lispro 0 unit 04/12/17 07:30 04/13/17 07:20 Humalog SQ Not Given ACHS [facility] Protocol Lisinopril 5 mg 04/13/17 09:00 Zestril PO QAM GAETANO Metoprolol Tartrate 50 mg 04/12/17 09:00 04/13/17 09:17 Lopressor PO 50 mg DAILY GAETANO Administration Timolol Maleate 1 drops 04/11/17 22:00 04/13/17 09:19 Timoptic BOTH EYES 1 drops BID GAETANO Administration Intake and Output 04/12/17 04/13/17 04/13/17 22:59 06:59 14:59 Intake Total 200 1200 Balance 200 1200 Intake: Intake, IV Titration 1200 Amount Sodium Chloride 0.9% 1, 1200 000 ml @ 100 mls/hr IV . Q10H ONE Rx#:[id number] Oral 200 Other: # Voids 1 2 04/11/17 17:30 04/11/17 17:30 EKG Interpretations (text) Normal sinus rhythm extensive ST-T wave changes. This could be related to the underlying left bundle branch block noted on a prior EKG or could be due to myocardial ischemia Assessment and Plan Plan: Syncope rule out cardiac causes Hypertension Insulin-requiring diabetes I will obtain troponin and d-dimer. Continue to watch her on telemetric. Check orthostatics. Ambulate her. If she is discharged home over the weekend I will perform a Lexiscan on her as outpatient.
[2017-04-13 11:42] LABS: Basophils % (A) 0 %; CH 30.1; CHCM 32.9; Eosinophils # (A) 0.2 k/uL (0-0.7); Eosinophils % (A) 3 %; HCT 29.9 % (34.0-46.0); HDW 2.46; HGB 10.1 gm/dL (11.4-16.0); Luc # (Auto) 0.28; Luc % (Auto) 3; Lymphocytes # (A) 2.3 k/uL (1.0-4.8); Lymphocytes % (A) 24 %; MCH 31.1 pg (25.0-35.0); MCHC 33.8 g/dL (31.0-37.0); Mean Platelet Volume 6.4; Monocytes # (A) 0.6 k/uL (0-1.0); Monocytes % (A) 6 %; Neutrophils # (A) 6.1 k/uL (1.3-7.7); Neutrophils % (A) 64 %; RBC 3.26 m/uL (3.80-5.40); RDW 12.7 % (11.5-15.5); WBC 9.4 k/uL (3.8-10.6); WBC (Perox) 9.89
[2017-04-13 11:46] LABS: Calcium 8.7 mg/dL (8.4-10.2); Potassium 3.8 mmol/L (3.5-5.1); Total Bilirubin 0.4 mg/dL (0.2-1.3); Total Protein 6.6 g/dL (6.3-8.2)
[2017-04-13 12:00] LABS: MCV 91.9 fL (80.0-100.0)
[2017-04-13] MEDS ORDERED: HEPARIN SODIUM,PORCINE 5,000 UNIT/ML 1 ML VIAL IV ONE (13:44)
[2017-04-13] MEDS ORDERED: HEPARIN SODIUM,PORCINE 5,000 UNIT/ML 1 ML VIAL IV PRN (13:44)
[2017-04-13] MEDS: LISINOPRIL 5 MG TAB PO SCH (14:00)
--- NOTE | 2017-04-13 14:14 | P.CNNES ---
History of Present Illness Consult date: 04/13/17 Requesting physician: Jarrett Stinson Jr Reason for Consult: Syncope History of Present Illness: Patient is a pleasant 81-year-old female who is being evaluated by the neurology service on 04/13/2017 per the request of Dr. Stinson for syncope. Patient lives in an apartment in an assisted living facility. Patient has past medical history of back pain with recent lumbar surgery, diabetes mellitus, chronic kidney disease stage III, and arthritis. Patient states she got up in the morning as usual and felt fine. Patient states she suddenly felt lightheaded and fell to the ground. Patient was unable to get up and was found by facility workers. Patient was brought to [facility] for further evaluation. Vital signs on admission were temperature 97.1, pulse 77, blood pressure 128/63, O2 saturation 98% on room air. Labs on admission were hemoglobin 10.1, hematocrit 29.9, 3 BCs 9.4, and RBCs 3.26. Electrolytes were within normal limits. BUN [address] of the facial bones showed left-sided sphenoid sinusitis but no fractures were seen. CT of the brain and cervical spine showed no acute abnormality. Carotid Dopplers were done and showed no hemodynamically significant stenosis in either ICA. At the time of my evaluation, patient is sitting up in the chair at the bedside and appears to be in no acute distress. Review of Systems REVIEW OF SYSTEMS: Otherwise unremarkable and noncontributory. Past Medical History Past Medical History: Diabetes Mellitus, Eye Disorder, Musculoskeletal Disorder , Osteoarthritis (OA), Renal Disease Additional Past Medical History / Comment(s): BACK PAIN WITH RADIATION , herniated discs, IDDM type II, CKD stage III, slight cardiac murmur, seasonal allergies, arthritis multiple joints. History of Any Multi-Drug Resistant Organisms: None Reported Past Surgical History: Back Surgery, Bladder Surgery, Hysterectomy, Orthopedic Surgery Additional Past Surgical History / Comment(s): mariela cataracts with lens implant, rt. thumb and wrist surgery, teeth removed, carpal tunnel surg. left and right, cervical fusion, multiple pain clinic procedures. Past Anesthesia/Blood Transfusion Reactions: No Reported Reaction Past Psychological History: No Psychological Hx Reported Additional Psychological History / Comment(s): Pt resides alone in her apartment. Smoking Status: Never smoker Past Alcohol Use History: None Reported Past Drug Use History: None Reported - Past Family History Mother History Unknown: Yes Family Medical History: No Reported History Father Family Medical History: Diabetes Mellitus Medications and Allergies Home Medications Medication Instructions Recorded Confirmed Type Aspirin 81 mg PO DAILY 04/06/16 04/11/17 History Cholecalciferol [Vitamin D3] 2,000 units PO DAILY 04/06/16 04/11/17 History Docusate [Colace] 50 mg PO HS 04/06/16 04/11/17 History Ferrous Sulfate [Iron (65 MG 325 mg PO DAILY 04/06/16 04/11/17 History Elemental)] [place]-3 Fatty Acids/Fish Oil [Fish 1 cap PO DAILY 04/06/16 04/11/17 History Oil 1,000 mg Softgel] Simvastatin [Zocor] 10 mg PO HS 04/06/16 04/11/17 History Timolol 0.5% Ophth Soln [Timoptic 1 drop BOTH EYES BID 04/06/16 04/11/17 History 0.5% Ophth Soln] Insulin NPH Hum/Reg Insulin Hm 30 unit SQ DAILY@1600 10/13/16 04/11/17 History [NovoLIN 70-30 100 UNIT/ML VIAL] Diazepam [Valium] 5 mg PO BID PRN 04/11/17 04/11/17 History HYDROcodone/APAP 7.5-325MG [[place] 1 tab PO Q8H PRN 04/11/17 04/11/17 History 7.5-325] Insulin NPH/Reg Insulin 70/30 26 unit SQ BID@0700,1100 04/11/17 04/11/17 History [humuLIN 70/30 VIAL] Lisinopril [Zestril] 5 mg PO QAM 04/11/17 04/11/17 History Allergies Allergy/AdvReac Type Severity Reaction Status Date / Time Iodine and Iodide Containing Allergy Rash/Hives Verified 04/11/17 18:23 Produc Physical Examination - Vital Signs Vital Signs: Vital Signs Temp Pulse Resp BP Pulse Ox 04/13/17 07:00 97.9 F 70 18 146/68 97 04/12/17 20:45 97.0 F L 66 16 111/54 100 04/12/17 20:00 16 04/12/17 15:00 97.8 F 59 L 18 108/53 98 Intake and Output 04/12/17 04/13/17 04/13/17 22:59 06:59 14:59 Intake Total 200 1200 Balance 200 1200 Intake: Intake, IV Titration 1200 Amount Sodium Chloride 0.9% 1, 1200 000 ml @ 100 mls/hr IV . Q10H ONE Rx#:[id number] Oral 200 Other: # Voids 1 2 3 PHYSICAL EXAM: GENERAL APPEARANCE: Patient is a well-developed, female who appears to be in no acute distress. HEENT: Normocephalic, atraumatic, no facial asymmetry is seen. Few facial abrasions noted Neck is supple with no masses felt. CARDIOVASCULAR: Regular rate and rhythm. ABDOMEN: Nontender, nondistended. EXTREMITIES: Show no edema or clubbing. NEUROLOGICAL EXAM: Patient is awake, alert, and oriented 3. Speech and language are normal. Strength is full in all 4 extremities. Sensory exam to light touch is normal in all 4 extremities. No facial asymmetry is seen on cranial nerve testing. No tremors or seizure-like activity noted. Results - Laboratory Findings CBC and BMP: 04/13/17 11:30 04/13/17 11:30 Abnormal Lab Findings: Abnormal Labs 04/11/17 04/11/17 04/11/17 17:27 17:30 17:30 WBC 14.8 H RBC Hgb Hct 33.0 L Plt Count 608 H Neutrophils # 11.0 H D-Dimer Sodium 132 L Chloride 90 L BUN 28 H Creatinine 1.50 H Glucose 151 H POC Glucose (mg/dL) 146 H Hemoglobin A1c AST Troponin I 04/11/17 04/11/17 04/12/17 17:30 22:45 08:01 WBC RBC Hgb Hct Plt Count Neutrophils # D-Dimer Sodium Chloride BUN Creatinine Glucose POC Glucose (mg/dL) 135 H 160 H Hemoglobin A1c 7.8 H AST Troponin I 04/12/17 04/12/17 04/12/17 11:16 17:13 20:01 WBC RBC Hgb Hct Plt Count Neutrophils # D-Dimer Sodium Chloride BUN Creatinine Glucose POC Glucose (mg/dL) 243 H 132 H 122 H Hemoglobin A1c AST Troponin I 04/13/17 04/13/17 04/13/17 07:09 11:03 11:30 WBC RBC Hgb Hct Plt Count Neutrophils # D-Dimer Sodium Chloride BUN 21 H Creatinine 1.44 H Glucose 113 H POC Glucose (mg/dL) 125 H 132 H Hemoglobin A1c AST 13 L Troponin I 04/13/17 04/13/17 04/13/17 11:30 11:30 11:30 WBC RBC 3.26 L Hgb 10.1 L Hct 29.9 L Plt Count 545 H Neutrophils # D-Dimer 1.09 H Sodium Chloride BUN Creatinine Glucose POC Glucose (mg/dL) Hemoglobin A1c AST Troponin I 0.121 H* Assessment and Plan (1) Dehydration Status: Acute (2) Fall Status: Acute (3) Syncope and collapse Status: Acute Plan: It appears patient had syncopal episode. Patient has no history of syncopal episodes. Patient denies seizure disorder, prior CVA, or vertigo. Patient does not describe seizure-like activity or post ictal state. Cardiology is on consult and is working her up for possible arrhythmia. Patient's neurological exam is within normal limits. Check orthostatics. As previously mentioned, computed tomography scan was negative for any acute abnormality. Continue workup per cardiology. Continue neurological checks. I am not convinced syncopal episode is neurologically related. I will order an EEG. Continue telemetry. As you recall, carotid Dopplers were negative for any hemodynamically significant stenosis. I will continue to follow with you. Further recommendations to follow. Thank you for allowing me to participate in the care of your patient. Feel free to call with any questions or concerns. I performed an examination of the patient and discussed the management with the [employer]. I have reviewed the [employer] notes and agree with the findings and plan of care.
[2017-04-13 15:07] LABS: Basophils % (A) 0 %; CH 30.2; CHCM 32.8; Eosinophils # (A) 0.3 k/uL (0-0.7); Eosinophils % (A) 3 %; HDW 2.49; HGB 10.4 gm/dL (11.4-16.0); Luc # (Auto) 0.32; Luc % (Auto) 3; Lymphocytes # (A) 2.6 k/uL (1.0-4.8); Lymphocytes % (A) 26 %; MCHC 34.5 g/dL (31.0-37.0); MCV 92.7 fL (80.0-100.0); Mean Platelet Volume 6.7; Monocytes # (A) 0.6 k/uL (0-1.0); Monocytes % (A) 6 %; Neutrophils # (A) 6.2 k/uL (1.3-7.7); Neutrophils % (A) 62 %; RBC 3.24 m/uL (3.80-5.40); RDW 12.8 % (11.5-15.5); WBC 9.9 k/uL (3.8-10.6); WBC (Perox) 10.31
[2017-04-13 15:10] LABS: Partial Thromboplastin Time 22.6 sec (22.0-30.0)
[2017-04-13] MEDS: HEPARIN SODIUM,PORCINE/D5W PMX 25,000 UNIT in DEXTROSE/WATER 1 500ML.BAG IV SCH (16:09)
--- NOTE | 2017-04-13 16:37 | NM ---
EXAMINATION TYPE: NM pul vent and perfuse DATE OF EXAM: 04/13/2017 COMPARISON: NONE. This exam is being interpreted without a recent chest x-ray. HISTORY: 81 year-old female elevated troponins. TECHNIQUE: Utilizing inhalation of 71.2 mCi Tc 99m DTPA aerosol and intravenous injection of 5.2 mCi of Tc 99m MAA, ventilation and perfusion images are acquired post injection in multiple projections. FINDINGS: There is mild heterogeneity of ventilation and perfusion within the lungs. No mismatched perfusion de fect is identified. IMPRESSION: Very low probability for pulmonary embolism. Note that this exam is being interpreted without a recen t chest x-ray for correlation purposes.
--- NOTE | 2017-04-13 18:04 | P.PN ---
Subjective Principal diagnosis: Syncopal episode 81-year-old lady with history of diabetes hypertension presents to the hospital with syncopal episodes and fall on April 10, patient was not found until morning at which time she was transported via ambulance to [facility]. To date the echocardiogram shows a otherwise normal left ventricular ejection fraction, aortic stenosis. The carotid Dopplers showed a left external carotid 70% stenosis of the internal carotids 30% narrowing. Her neurologic evaluation was essentially unremarkable. Hemoglobin was 10.1 hematocrit 20 9.9B UN 21 and creatinine 1.44. Stage III kidney disease noted. The first troponin was 0.020 second troponin was 0.121. The d-dimer was 1.09 which is also elevated however the VQ scan was low probability for pulmonary embolus Objective - Vital Signs Vital signs: Vital Signs Temp 97.8 F 04/13/17 15:45 Pulse 66 04/13/17 15:45 Resp 18 04/13/17 15:45 BP 153/72 04/13/17 15:45 Pulse Ox 99 04/13/17 15:45 Intake & Output 04/12/17 04/13/17 04/13/17 18:59 06:59 18:59 Intake Total 800 1400 100 Balance 800 1400 100 Weight 74.389 kg Intake: IV 800 Sodium Chloride 0.9% 1, 800 000 ml @ 100 mls/hr IV . Q10H ONE Rx#:[id number] Intake, IV Titration 1200 Amount Sodium Chloride 0.9% 1, 1200 000 ml @ 100 mls/hr IV . Q10H ONE Rx#:[id number] Oral 200 100 Other: # Voids 1 2 3 - Exam General: [Patient awake, alert and oriented times 3. Patient in no acute distress.] HEENT: [PERRL. EOMI. No pharyngeal erythema or exudate.] Neck: [No adenopathy.] Cardiac: [Heart regular in rate and rhythm. No S3. No S4. No clicks, rubs. No murmur.] Lungs: [Clear to auscultation bilaterally.] Abdomen: [No mass. No organomegaly. Bowel sounds presnt and normoactive in all 4 quadrants.] Extremes: [No edema no cyanosis no claudication normal pulses] : [] Musculoskeletal: [No joint erythema, edema or tenderness.] Skin: [No rash.] Neurologic: [No lateralizing deficits. CN II - XII grossly intact.] Lymphatic: [No adenopathy.] - Labs CBC & Chem 7: 04/13/17 14:27 04/13/17 11:30 Labs: Abnormal Lab Results - Last 24 Hours (Table) 04/12/17 04/13/17 04/13/17 Range/Units 20:01 07:09 11:03 RBC (3.80-5.40) m/uL Hgb (11.4-16.0) gm/dL Hct (34.0-46.0) % Plt Count (150-450) k/uL D-Dimer (<0.60) mg/L FEU BUN (7-17) mg/dL Creatinine (0.52-1.04) mg/dL Glucose (74-99) mg/dL POC Glucose (mg/dL) 122 H 125 H 132 H (75-99) mg/dL AST (14-36) U/L Troponin I (0.000-0.034) ng/mL 04/13/17 04/13/17 04/13/17 Range/Units 11:30 11:30 11:30 RBC (3.80-5.40) m/uL Hgb (11.4-16.0) gm/dL Hct (34.0-46.0) % Plt Count (150-450) k/uL D-Dimer 1.09 H (<0.60) mg/L FEU BUN 21 H (7-17) mg/dL Creatinine 1.44 H (0.52-1.04) mg/dL Glucose 113 H (74-99) mg/dL POC Glucose (mg/dL) (75-99) mg/dL AST 13 L (14-36) U/L Troponin I 0.121 H* (0.000-0.034) ng/mL 04/13/17 04/13/17 Range/Units 11:30 14:27 RBC 3.26 L 3.24 L (3.80-5.40) m/uL Hgb 10.1 L 10.4 L (11.4-16.0) gm/dL Hct 29.9 L 30.0 L (34.0-46.0) % Plt Count 545 H 578 H (150-450) k/uL D-Dimer (<0.60) mg/L FEU BUN (7-17) mg/dL Creatinine (0.52-1.04) mg/dL Glucose (74-99) mg/dL POC Glucose (mg/dL) (75-99) mg/dL AST (14-36) U/L Troponin I (0.000-0.034) ng/mL Assessment and Plan (1) Syncope and collapse Narrative/Plan: Carotid Dopplers showed no evidence of hemodynamicly significant stenosis, heart is being monitored for arrhythmia as well Monitor patient for postural hypotension secondary to beta shakeel ( doubt) Status: Acute (2) Dehydration Narrative/Plan: Resolved IV KVO Status: Acute (3) Fall Narrative/Plan: Fall was secondary to #1 Cardiology consult obtained to rule out arrhythmia, Or other cardiac event Neurology consult also obtained to rule in or rule out neurologic source of syncope Status: Acute (4) Lumbar disc herniation Narrative/Plan: Patient does not complain of pain, surgical procedure performed within the last year Status: Acute (5) Lumbar spinal stenosis Narrative/Plan: As stated above procedure performed by Dr. Wang patient has been symptom free Status: Acute
[2017-04-13 20:41] LABS: Glucose,Whole Blood 186 mg/dL (75-99)
[2017-04-13] MEDS: DOCUSATE ORAL SOLN 100 MG/10 ML CUP PO SCH (21:02)
[2017-04-13] MEDS: ATORVASTATIN 10 MG TAB PO SCH (21:03)
[2017-04-14 05:09] LABS: Glucose,Whole Blood 70 mg/dL (75-99)
[2017-04-14] MEDS: INSULIN LISPRO (humaLOG) 300 UNIT/3 ML VIAL SQ SCH ×4 (06:24→21:44)
[2017-04-14 06:28] LABS: Glucose,Whole Blood 91 mg/dL (75-99)
[2017-04-14 08:14] LABS: Basophils % (A) 0 %; CH 30.1; CHCM 33.3; Eosinophils # (A) 0.3 k/uL (0-0.7); Eosinophils % (A) 3 %; HCT 30.7 % (34.0-46.0); HDW 2.57; HGB 10.2 gm/dL (11.4-16.0); Luc # (Auto) 0.21; Luc % (Auto) 2; Lymphocytes # (A) 2.5 k/uL (1.0-4.8); Lymphocytes % (A) 27 %; MCH 30.2 pg (25.0-35.0); MCHC 33.3 g/dL (31.0-37.0); MCV 90.7 fL (80.0-100.0); Monocytes # (A) 0.6 k/uL (0-1.0); Monocytes % (A) 6 %; Neutrophils # (A) 5.8 k/uL (1.3-7.7); Neutrophils % (A) 62 %; RBC 3.39 m/uL (3.80-5.40); RDW 12.9 % (11.5-15.5); WBC 9.4 k/uL (3.8-10.6)
[2017-04-14] MEDS: INSULIN NPH/REG INSULIN 70/30 300 UNIT/3 ML VIAL SQ SCH ×3 (09:20→17:55)
[2017-04-14] MEDS: AMOXICILLIN 500 MG CAP PO SCH ×3 (09:20→23:51)
[2017-04-14] MEDS: FERROUS SULFATE 325 MG TAB PO SCH (09:21)
[2017-04-14] MEDS: amLODIPine 5 MG TAB PO SCH (09:21)
[2017-04-14] MEDS: CHOLECALCIFEROL 1,000 UNIT TAB PO SCH (09:21)
[2017-04-14] MEDS: ASPIRIN 81 MG CHEW PO SCH (09:21)
[2017-04-14] MEDS: TIMOLOL 0.5% OPHTH DROPS 5 ML BTL BOTH EYES SCH ×2 (09:22→21:44)
[2017-04-14] MEDS: LISINOPRIL 5 MG TAB PO SCH (09:22)
[2017-04-14] MEDS: METOPROLOL TARTRATE 50 MG TAB PO SCH (09:22)
[2017-04-14] MEDS: HYDROCHLOROTHIAZIDE 25 MG TAB PO SCH (09:22)
[2017-04-14 12:05] LABS: Glucose,Whole Blood 198 mg/dL (75-99)
--- NOTE | 2017-04-14 12:47 | P.PN ---
Subjective Principal diagnosis: Patient is a pleasant 81-year-old female who is being followed by the neurology service for syncope. Patient has had no further syncopal episodes since admission. Patient is doing much better this morning. Patient reports she had a feeling of lightheadedness last night while ambulating to the bathroom. Patient did not lose consciousness or fall. Currently cardiology is following for increased cardiac enzymes. As you recall, echo did show normal of the systolic function with moderate stenosis at the aortic valve. Patient had elevated d-dimer and had VQ scan done which showed low probability for PE. Vital signs are stable with blood pressure 114/53. Patient is anemic with hemoglobin of 10.2, hematocrit 30.7, RBC 3.39, WBC 9.4. At the time of my evaluation, patient sitting up at the bedside eating lunch and appears to be in no acute distress. Family is at the bedside. Objective - Vital Signs Vital signs: Vital Signs Temp 97.5 F L 04/14/17 08:00 Pulse 65 04/14/17 08:00 Resp 18 04/14/17 08:00 BP 114/53 04/14/17 08:00 Pulse Ox 99 04/14/17 08:00 Intake & Output 04/13/17 04/14/17 04/14/17 18:59 06:59 18:59 Intake Total 100 1086.235 100 Output Total 1600 Balance 100 -513.765 100 Weight 75.2 kg Intake: IV 900 Sodium Chloride 0.9% 1, 900 000 ml @ 100 mls/hr IV . Q10H ONE Rx#:[id number] Intake, IV Titration 186.235 Amount Heparin Sodium,Porcine/ 186.235 D5w Pmx 25,000 unit In Dextrose/Water 1 500ml. bag @ 12 UNITS/KG/HR 17. 85 mls/hr IV .Q24H [facility] Rx #:[id number] Oral 100 100 Output: Urine 1600 Other: Voiding Method Toilet Toilet # Voids 3 1 - Exam PHYSICAL EXAM: GENERAL APPEARANCE: Patient is a well-developed, female who appears to be in no acute distress. HEENT: Normocephalic, atraumatic, no facial asymmetry is seen. Neck is supple with no masses felt. CARDIOVASCULAR: Regular rate and rhythm. ABDOMEN: Nontender, nondistended. EXTREMITIES: Show no edema or clubbing. NEUROLOGICAL EXAM: Patient is awake, alert, and oriented 3. Speech and language are normal. Strength is full in all 4 extremities. Sensory exam to light touch is normal in all 4 extremities. No facial asymmetry is seen on cranial nerve testing. No tremors or seizure-like activity noted. - Labs CBC & Chem 7: 04/14/17 07:53 04/13/17 11:30 Labs: Abnormal Lab Results - Last 24 Hours (Table) 04/13/17 04/13/17 04/13/17 Range/Units 14:27 19:18 20:02 RBC 3.24 L (3.80-5.40) m/uL Hgb 10.4 L (11.4-16.0) gm/dL Hct 30.0 L (34.0-46.0) % Plt Count 578 H (150-450) k/uL APTT (22.0-30.0) sec POC Glucose (mg/dL) 186 H (75-99) mg/dL Troponin I 0.098 H* (0.000-0.034) ng/mL 04/13/17 04/14/17 04/14/17 Range/Units 21:48 04:49 07:53 RBC 3.39 L (3.80-5.40) m/uL Hgb 10.2 L (11.4-16.0) gm/dL Hct 30.7 L (34.0-46.0) % Plt Count 539 H (150-450) k/uL APTT 34.8 H (22.0-30.0) sec POC Glucose (mg/dL) 70 L (75-99) mg/dL Troponin I (0.000-0.034) ng/mL 04/14/17 04/14/17 Range/Units 07:53 12:03 RBC (3.80-5.40) m/uL Hgb (11.4-16.0) gm/dL Hct (34.0-46.0) % Plt Count (150-450) k/uL APTT 39.5 H (22.0-30.0) sec POC Glucose (mg/dL) 198 H (75-99) mg/dL Troponin I (0.000-0.034) ng/mL Assessment and Plan (1) Dehydration Status: Acute (2) Fall Status: Acute (3) Syncope and collapse Status: Acute Plan: It appears patient had syncopal episode. Patient has no history of syncopal episodes. Patient denies seizure disorder, prior CVA, or vertigo. Patient does not describe seizure-like activity or post ictal state. Cardiology is on consult and is working her up for possible arrhythmia. Patient's neurological exam is within normal limits. Orthostatics were within normal limits when checked. As previously mentioned, computed tomography scan was negative for any acute abnormality. Continue workup per cardiology. Continue neurological checks. I am not convinced syncopal episode is neurologically related. EEG was done and results are pending. Continue telemetry. As you recall, carotid Dopplers were negative for any hemodynamically significant stenosis. Barring any abnormality in the EEG, I will continue to follow with you on an as-needed basis. Feel free to call with any questions or concerns. I performed an examination of the patient and discussed the management with the INVESTIGATIONS MANAGER. I have reviewed the INVESTIGATIONS MANAGER notes and agree with the findings and plan of care.
--- NOTE | 2017-04-14 14:27 | P.PN ---
Subjective Principal diagnosis: Syncope This is an 81-year-old female with history of hypertension, diabetes, hyperlipidemia, renal disease, who presented to the hospital following a syncopal episode. Orthostatics were obtained which did not reveal any significant changes. EKG on presentation here showed a normal sinus rhythm with inferior lateral ST-T wave changes. Troponins 0.020, 0.121, 0.098. Echocardiogram with Doppler study was performed which revealed an ejection fraction of 55-60%. Blood pressure 114/52 with a heart rate in the 60s. Patient feels well overall denies any dizziness, lightheadedness, no chest discomfort, no difficulty in breathing. Objective - Vital Signs Vital signs: Vital Signs Temp 97.5 F L 04/14/17 08:00 Pulse 65 04/14/17 08:00 Resp 18 04/14/17 08:00 BP 114/53 04/14/17 08:00 Pulse Ox 99 04/14/17 08:00 Intake & Output 04/13/17 04/14/17 04/14/17 18:59 06:59 18:59 Intake Total 100 1086.235 100 Output Total 1600 Balance 100 -513.765 100 Weight 75.2 kg Intake: IV 900 Sodium Chloride 0.9% 1, 900 000 ml @ 100 mls/hr IV . Q10H [facility] Rx#:[id number] Intake, IV Titration 186.235 Amount Heparin Sodium,Porcine/ 186.235 D5w Pmx 25,000 unit In Dextrose/Water 1 500ml. bag @ 12 UNITS/KG/HR 17. 85 mls/hr IV .Q24H [facility] Rx #:[id number] Oral 100 100 Output: Urine 1600 Other: Voiding Method Toilet Toilet # Voids 3 1 - Exam PHYSICAL EXAMINATION: HEENT: Head is atraumatic, normocephalic. Pupils equal, round. Neck is supple. There is no elevated jugular venous pressure. HEART EXAMINATION: Heart S1 and S2 systolic ejection murmur is heard. CHEST EXAMINATION: Lungs are clear to auscultation and precussion. No chest wall tenderness is noted on palpation or with deep breathing. ABDOMEN: Soft, nontender. Bowel sounds are heard. No organomegaly noted. EXTREMITIES:[ 2+ peripheral pulses with no evidence of peripheral edema and no calf tenderness noted]. NEUROLOGIC [patient is awake, alert and oriented -3.] . - Labs CBC & Chem 7: 04/14/17 07:53 04/13/17 11:30 Labs: Abnormal Lab Results - Last 24 Hours (Table) 04/13/17 04/13/17 04/13/17 Range/Units 14:27 19:18 20:02 RBC 3.24 L (3.80-5.40) m/uL Hgb 10.4 L (11.4-16.0) gm/dL Hct 30.0 L (34.0-46.0) % Plt Count 578 H (150-450) k/uL APTT (22.0-30.0) sec POC Glucose (mg/dL) 186 H (75-99) mg/dL Troponin I 0.098 H* (0.000-0.034) ng/mL 04/13/17 04/14/17 04/14/17 Range/Units 21:48 04:49 07:53 RBC 3.39 L (3.80-5.40) m/uL Hgb 10.2 L (11.4-16.0) gm/dL Hct 30.7 L (34.0-46.0) % Plt Count 539 H (150-450) k/uL APTT 34.8 H (22.0-30.0) sec POC Glucose (mg/dL) 70 L (75-99) mg/dL Troponin I (0.000-0.034) ng/mL 04/14/17 04/14/17 Range/Units 07:53 12:03 RBC (3.80-5.40) m/uL Hgb (11.4-16.0) gm/dL Hct (34.0-46.0) % Plt Count (150-450) k/uL APTT 39.5 H (22.0-30.0) sec POC Glucose (mg/dL) 198 H (75-99) mg/dL Troponin I (0.000-0.034) ng/mL Assessment and Plan (1) HTN (hypertension) Status: Acute (2) Hyperlipemia Status: Acute (3) Aortic stenosis Status: Acute (4) Elevated troponin Status: Acute (5) Syncope and collapse Status: Acute Plan: From cardiology's perspective, we will continue to monitor orthostatics, continue to monitor for any tachycardia or bradycardia arrhythmias. We will also repeat an EKG. Further recommendations will be based on those findings and the patient's clinical course. DNP note has been reviewed, I agree with a documented findings and plan of care. Patient was seen and examined.
--- NOTE | 2017-04-14 14:28 | P.PN ---
Subjective Principal diagnosis: Syncopal episode 81-year-old lady with history of diabetes hypertension presents to the hospital with syncopal episodes and fall on April 10, patient was not found until morning at which time she was transported via ambulance to [facility]. To date the echocardiogram shows a otherwise normal left ventricular ejection fraction, aortic stenosis. The carotid Dopplers showed a left external carotid 70% stenosis of the internal carotids 30% narrowing. Her neurologic evaluation was essentially unremarkable. Hemoglobin was 10.1 hematocrit 20 9.9B UN 21 and creatinine 1.44. Stage III kidney disease noted. The first troponin was 0.020 second troponin was 0.121. The d-dimer was 1.09 which is also elevated however the VQ scan was low probability for pulmonary embolus Objective - Vital Signs Vital signs: Vital Signs Temp 97.5 F L 04/14/17 08:00 Pulse 65 04/14/17 08:00 Resp 18 04/14/17 08:00 BP 114/53 04/14/17 08:00 Pulse Ox 99 04/14/17 08:00 Intake & Output 04/13/17 04/14/17 04/14/17 18:59 06:59 18:59 Intake Total 100 1086.235 100 Output Total 1600 Balance 100 -513.765 100 Weight 75.2 kg Intake: IV 900 Sodium Chloride 0.9% 1, 900 000 ml @ 100 mls/hr IV . Q10H [facility] Rx#:[id number] Intake, IV Titration 186.235 Amount Heparin Sodium,Porcine/ 186.235 D5w Pmx 25,000 unit In Dextrose/Water 1 500ml. bag @ 12 UNITS/KG/HR 17. 85 mls/hr IV .Q24H [facility] Rx #:[id number] Oral 100 100 Output: Urine 1600 Other: Voiding Method Toilet Toilet # Voids 3 1 - Exam General: [Patient awake, alert and oriented times 3. Patient in no acute distress.] HEENT: [PERRL. EOMI. No pharyngeal erythema or exudate.] Neck: [No adenopathy.] Cardiac: [Heart regular in rate and rhythm. No S3. No S4. No clicks, rubs. No murmur.] Lungs: [Clear to auscultation bilaterally.] Abdomen: [No mass. No organomegaly. Bowel sounds presnt and normoactive in all 4 quadrants.] Extremes: [No edema no cyanosis no claudication normal pulses] : [] Musculoskeletal: [No joint erythema, edema or tenderness.] Skin: [No rash.] Neurologic: [No lateralizing deficits. CN II - XII grossly intact.] Lymphatic: [No adenopathy.] - Labs CBC & Chem 7: 04/14/17 07:53 04/13/17 11:30 Labs: Abnormal Lab Results - Last 24 Hours (Table) 04/13/17 04/13/17 04/13/17 Range/Units 14:27 19:18 20:02 RBC 3.24 L (3.80-5.40) m/uL Hgb 10.4 L (11.4-16.0) gm/dL Hct 30.0 L (34.0-46.0) % Plt Count 578 H (150-450) k/uL APTT (22.0-30.0) sec POC Glucose (mg/dL) 186 H (75-99) mg/dL Troponin I 0.098 H* (0.000-0.034) ng/mL 04/13/17 04/14/17 04/14/17 Range/Units 21:48 04:49 07:53 RBC 3.39 L (3.80-5.40) m/uL Hgb 10.2 L (11.4-16.0) gm/dL Hct 30.7 L (34.0-46.0) % Plt Count 539 H (150-450) k/uL APTT 34.8 H (22.0-30.0) sec POC Glucose (mg/dL) 70 L (75-99) mg/dL Troponin I (0.000-0.034) ng/mL 04/14/17 04/14/17 Range/Units 07:53 12:03 RBC (3.80-5.40) m/uL Hgb (11.4-16.0) gm/dL Hct (34.0-46.0) % Plt Count (150-450) k/uL APTT 39.5 H (22.0-30.0) sec POC Glucose (mg/dL) 198 H (75-99) mg/dL Troponin I (0.000-0.034) ng/mL Assessment and Plan (1) Syncope and collapse Narrative/Plan: Carotid Dopplers showed no evidence of hemodynamicly significant stenosis, heart is being monitored for arrhythmia as well Monitor patient for postural hypotension secondary to beta shakeel ( doubt). Echo demonstrated aortic stenosis, with an essentially normal LV function. Status: Acute (2) Dehydration Narrative/Plan: Resolved IV KVO Status: Acute (3) Fall Narrative/Plan: Fall was secondary to #1 Cardiology consult obtained to rule out arrhythmia, Or other cardiac event Neurology consult also obtained to rule in or rule out neurologic source of syncope Status: Acute (4) Lumbar disc herniation Narrative/Plan: Patient does not complain of pain, surgical procedure performed within the last year Status: Acute (5) Lumbar spinal stenosis Narrative/Plan: As stated above procedure performed by Dr. Wang patient has been symptom free Status: Acute
[2017-04-14] MEDS: HEPARIN SODIUM,PORCINE/D5W PMX 25,000 UNIT in DEXTROSE/WATER 1 500ML.BAG IV SCH (15:11)
[2017-04-14 17:02] LABS: Glucose,Whole Blood 133 mg/dL (75-99)
[2017-04-14 17:16] VITALS: RESP 16
[2017-04-14 20:35] LABS: Glucose,Whole Blood 163 mg/dL (75-99)
[2017-04-14] MEDS: DOCUSATE ORAL SOLN 100 MG/10 ML CUP PO SCH (21:43)
[2017-04-14] MEDS: ATORVASTATIN 10 MG TAB PO SCH (21:44)
[2017-04-15 05:44] LABS: Glucose,Whole Blood 88 mg/dL (75-99)
[2017-04-15] MEDS: INSULIN LISPRO (humaLOG) 300 UNIT/3 ML VIAL SQ SCH ×2 (06:30→12:13)
[2017-04-15 06:54] LABS: Basophils % (A) 1 %; CH 30.2; CHCM 33.1; Eosinophils # (A) 0.2 k/uL (0-0.7); Eosinophils % (A) 2 %; HDW 2.53; HGB 8.8 gm/dL (11.4-16.0); Luc # (Auto) 0.39; Luc % (Auto) 4; Lymphocytes % (A) 34 %; MCHC 33.8 g/dL (31.0-37.0); MCV 91.6 fL (80.0-100.0); Mean Platelet Volume 6.7; Monocytes # (A) 0.5 k/uL (0-1.0); Monocytes % (A) 6 %; Neutrophils # (A) 4.8 k/uL (1.3-7.7); Neutrophils % (A) 54 %; RBC 2.84 m/uL (3.80-5.40); RDW 13.2 % (11.5-15.5); WBC 8.9 k/uL (3.8-10.6); WBC (Perox) 9.04
[2017-04-15] MEDS: INSULIN NPH/REG INSULIN 70/30 300 UNIT/3 ML VIAL SQ SCH ×2 (07:53→12:13)
[2017-04-15] MEDS: AMOXICILLIN 500 MG CAP PO SCH (07:54)
[2017-04-15] MEDS: amLODIPine 5 MG TAB PO SCH (08:06)
[2017-04-15] MEDS: ASPIRIN 81 MG CHEW PO SCH (08:07)
[2017-04-15] MEDS: HYDROCHLOROTHIAZIDE 25 MG TAB PO SCH (08:07)
[2017-04-15] MEDS: CHOLECALCIFEROL 1,000 UNIT TAB PO SCH (08:07)
[2017-04-15] MEDS: FERROUS SULFATE 325 MG TAB PO SCH (08:07)
[2017-04-15] MEDS: METOPROLOL TARTRATE 50 MG TAB PO SCH (08:07)
[2017-04-15] MEDS: LISINOPRIL 5 MG TAB PO SCH (08:07)
[2017-04-15] MEDS: TIMOLOL 0.5% OPHTH DROPS 5 ML BTL BOTH EYES SCH (08:08)
[2017-04-15 11:40] LABS: Glucose,Whole Blood 148 mg/dL (75-99)
[2017-04-15 12:28] VITALS: BP 111/69; PULSE 55; TEMP 97.5
--- NOTE | 2017-04-15 13:18 | P.DS ---
Providers Date of admission: 04/13/17 12:54 Expected date of discharge: 04/15/17 Attending physician: Jarrett Stinson Consults: 04/12/17 17:43 Consult Physician Routine Consulting Provider: [facility] Consult Reason/Comments: syncope Do you want consulting provider notified?: Already Contacted 04/12/17 17:52 Consult Physician Routine Consulting Provider: Heri Lopez Consult Reason/Comments: syncope Do you want consulting provider notified?: Yes Primary care physician: Josh Brink - Discharge Diagnosis(es) (1) Syncope and collapse Current Visit: Yes Status: Acute (2) Dehydration Current Visit: Yes Status: Acute (3) Fall No fractures Current Visit: Yes Status: Acute (4) Lumbar disc herniation History little or no residual pain Current Visit: No Status: Acute (5) Lumbar spinal stenosis By history Current Visit: No Status: Acute Priority: Medium Hospital Course: General: [Patient awake, alert and oriented times 3. Patient in no acute distress.] HEENT: [PERRL. EOMI. No pharyngeal erythema or exudate.] Neck: [No adenopathy.] Cardiac: [Heart regular in rate and rhythm. No S3. No S4. No clicks, rubs. No murmur.] Lungs: [Clear to auscultation bilaterally.] Abdomen: [No mass. No organomegaly. Bowel sounds presnt and normoactive in all 4 quadrants.] Extremes: [No edema no cyanosis no claudication normal pulses] : [] Musculoskeletal: [No joint erythema, edema or tenderness.] Skin: [No rash.] Neurologic: [No lateralizing deficits. CN II - XII grossly intact.] Lymphatic: [No adenopathy.] Patient Condition at Discharge: Good Plan - Discharge Summary New Discharge Prescriptions: No Action Simvastatin [Zocor] 10 mg PO HS Timolol 0.5% Ophth Soln [Timoptic 0.5% Ophth Soln] 1 drop BOTH EYES BID Aspirin 81 mg PO DAILY Ferrous Sulfate [Iron (65 MG Elemental)] 325 mg PO DAILY Highland-3 Fatty Acids/Fish Oil [Fish Oil 1,000 mg Softgel] 1 cap PO DAILY Cholecalciferol [Vitamin D3] 2,000 units PO DAILY Docusate [Colace] 50 mg PO HS Insulin NPH Hum/Reg Insulin Hm [NovoLIN 70-30 100 UNIT/ML VIAL] 30 unit SQ DAILY@1600 Hydrochlorothiazide [Hydrodiuril] 25 mg PO DAILY tab Metoprolol Tartrate [Lopressor] 50 mg PO DAILY tab Cyclobenzaprine [Flexeril] 5 mg PO TID PRN #21 tab PRN Reason: Muscle Spasm amLODIPine [Norvasc] 5 mg PO DAILY tab Lisinopril [Zestril] 5 mg PO QAM HYDROcodone/APAP 7.5-325MG [[place]croft 7.5-325] 1 tab PO Q8H PRN PRN Reason: Pain Insulin NPH/Reg Insulin 70/30 [humuLIN 70/30 VIAL] 26 unit SQ BID@0700,1100 Diazepam [Valium] 5 mg PO BID PRN PRN Reason: Anxiety Discharge Medication List Aspirin 81 mg PO DAILY 04/06/16 [History] Cholecalciferol [Vitamin D3] 2,000 units PO DAILY 04/06/16 [History] Docusate [Colace] 50 mg PO HS 04/06/16 [History] Ferrous Sulfate [Iron (65 MG Elemental)] 325 mg PO DAILY 04/06/16 [History] Highland-3 Fatty Acids/Fish Oil [Fish Oil 1,000 mg Softgel] 1 cap PO DAILY [History] Simvastatin [Zocor] 10 mg PO HS 04/06/16 [History] Timolol 0.5% Ophth Soln [Timoptic 0.5% Ophth Soln] 1 drop BOTH EYES BID [History] Insulin NPH Hum/Reg Insulin Hm [NovoLIN 70-30 100 UNIT/ML VIAL] 30 unit SQ DAILY @1600 10/13/16 [History] Cyclobenzaprine [Flexeril] 5 mg PO TID PRN #21 tab 12/04/16 [Rx] Hydrochlorothiazide [Hydrodiuril] 25 mg PO DAILY tab 12/04/16 [Rx] Metoprolol Tartrate [Lopressor] 50 mg PO DAILY tab 12/04/16 [Rx] amLODIPine [Norvasc] 5 mg PO DAILY tab 12/05/16 [Rx] Diazepam [Valium] 5 mg PO BID PRN 04/11/17 [History] HYDROcodone/APAP 7.5-325MG [[place]croft 7.5-325] 1 tab PO Q8H PRN 04/11/17 [History] Insulin NPH/Reg Insulin 70/30 [humuLIN 70/30 VIAL] 26 unit SQ BID@0700,1100 02/21 [History] Lisinopril [Zestril] 5 mg PO QAM 04/11/17 [History] Follow up Appointment(s)/Referral(s): Josh Brink MD [Primary Care Provider] - 1-2 days Activity/Diet/Wound Care/Special Instructions: [facility]: #[phone]
[2017-04-15] MEDS ORDERED: AMOXICILLIN 500 MG CAP PO SCH (13:26)
--- NOTE | 2017-04-16 17:14 | PN ---
Mrs. Mc is an 81 year old female who presented with a syncopal episode. She has history of hypertension, diabetes and hyperlipidemia. She is feeling well this morning, ambulating without difficulty, denying any chest pain, no dizziness, no palpitations. She has minimal troponin elevation. She had an echocardiogram that showed preserved systolic function and her ventilation perfusion scan revealed no evidence of pulmonary embolism. She continues to be at this time on Amlodipine 5 mg daily, aspirin 81 mg daily, Lipitor 10 mg daily, Hydrochlorothiazide 25 mg daily, insulin, Lisinopril 5 mg daily, Metoprolol tartrate 50 mg daily. Physical examination: Blood pressure running in the 120s with a heart rate in the 60s. Lungs clear, heart regular rate and rhythm S1, S2. No S3 with a systolic murmur. No diastolic murmur. Abdomen is soft, nontender. Extremities no edema. Orthostatic blood pressure measured yesterday revealed no evidence of orthostasis. Lab data revealed a hemoglobin 8.8 which has dropped compared with her admission number. IMPRESSION: 1. Syncopal episode of unclear etiology. 2. Mild elevation of troponin with no clear evidence of acute coronary syndrome. 3. Anemia. 4. Hypertension. RECOMMENDATIONS: I will follow her renal function, at this time, I see no evidence of hypotension and her blood pressures have been under good control. So we will continue on her present medical regimen. If her blood pressure is lower, then I will stop her amlodipine. Depending on her progress, further recommendations will be made. [facility]
== END 2017-04-15 14:56 | disposition home or self-care (01) | DRG 312 ==
LOC: EC 17:15 → 5MS5E 20:26 → OBSVTOIN 04-13 12:54 → 6SEL 04-13 17:21
PROVIDERS: ADMIT Family Medicine; ATTEND Family Medicine
DX: R55 Syncope and collapse (principal); E11.22 Type 2 diabetes mellitus with diabetic chronic kidney disease; N18.3 Chronic kidney disease, stage 3 (moderate); I65.23 Occlusion and stenosis of bilateral carotid arteries; I12.9 Hypertensive chronic kidney disease with stage 1 through stage 4 chronic kidney disease, or unspecified chronic kidney disease; D64.9 Anemia, unspecified; S00.83XA Contusion of other part of head, initial encounter; E86.0 Dehydration; R94.31 Abnormal electrocardiogram [ECG] [EKG]; I35.0 Nonrheumatic aortic (valve) stenosis; I45.9 Conduction disorder, unspecified; J32.3 Chronic sphenoidal sinusitis; R74.8 Abnormal levels of other serum enzymes; E78.5 Hyperlipidemia, unspecified; M51.26 Other intervertebral disc displacement, lumbar region; E78.00 Pure hypercholesterolemia, unspecified; K08.109 Complete loss of teeth, unspecified cause, unspecified class; M48.06 Spinal stenosis, lumbar region; R51 Headache; M54.2 Cervicalgia; M19.90 Unspecified osteoarthritis, unspecified site; Z79.4 Long term (current) use of insulin; Z79.82 Long term (current) use of aspirin; Z79.899 Other long term (current) drug therapy; Z83.3 Family history of diabetes mellitus; Z91.041 Radiographic dye allergy status; Z71.3 Dietary counseling and surveillance; Z90.710 Acquired absence of both cervix and uterus; Z98.42 Cataract extraction status, left eye; Z98.41 Cataract extraction status, right eye; Z96.1 Presence of intraocular lens; Z98.1 Arthrodesis status; Z79.891 Long term (current) use of opiate analgesic; Z86.79 Personal history of other diseases of the circulatory system; Z98.890 Other specified postprocedural states; Z87.81 Personal history of (healed) traumatic fracture; W19.XXXA Unspecified fall, initial encounter; Y92.009 Unspecified place in unspecified non-institutional (private) residence as the place of occurrence of the external cause
CPT/HCPCS: 36415; 70450; 70486; 72125; 73502; 78582; 80053; 82550; 83036; 84484; 85025; 85379; 85610; 85730; 93005; 93306; 93880; 95819; 99285

== ENCOUNTER 2017-06-05 14:51 | Emergency (ER) | payer MEDICARE, BC ==
[2017-06-05 15:04] VITALS: RESP 10
[2017-06-05 15:32] VITALS: BP 129/63
[2017-06-05 15:35] LABS: Glucose,Whole Blood 466 mg/dL (75-99)
[2017-06-05 15:37] VITALS: PULSE 58
--- NOTE | 2017-06-05 15:42 | XR ---
EXAMINATION TYPE: XR chest 1V portable DATE OF EXAM: 06/05/2017 COMPARISON: 11/27/2016 HISTORY: ET tube placement FINDINGS: There is cardiomegaly and bibasilar infiltrate. There is a diffuse interstitial pattern. Tiny bilate ral pleural effusion. Postsurgical change overlying the cervical spine. ET tube within the right mainstem bronchus. Aortic knob prominent. IMPRESSION: 1. ET tube within the right mainstem bronchus. 2. Diffuse interstitial pattern correlate for CHF versus interstitial pneumonitis. Aortic knob promin ent consider CT scan chest.
--- NOTE | 2017-06-05 15:45 | XR ---
EXAMINATION TYPE: XR chest 1V portable DATE OF EXAM: 06/05/2017 COMPARISON: 06/05/2017 HISTORY: ET tube adjustment FINDINGS: There are bilateral pleural effusions with cardiomegaly and bibasilar infiltrate. There is a diffuse interstitial pattern. ET tube now 2.5 cm above timo. There is again noted to be prominence of the aortic knob. Report fer led to emergency room physician. Postsurgical change overlying the cervical spine. No pneumothorax. A rthropathy of the shoulders. NG tube seen coursing into the abdomen. IMPRESSION: 1. ET tube 2.5 cm above timo. 2. Correlate for pulmonary edema versus diffuse pneumonia. 3. Aortic knob is poorly defined and somewhat prominent consider CT scan of the chest.
[2017-06-05] MEDS ORDERED: ATROPINE SULFATE 0.1 MG/ML 10ML SYRINGE ONE ×2 (15:50)
[2017-06-05] MEDS ORDERED: EPINEPHrine 10 ML SYRINGE (0.1 MG/ML) ONE (15:50)
--- NOTE | 2017-06-05 17:26 | ED ---
Arrhythmia/Palpitations HPI - General Chief Complaint: Arrhythmia/Palpitations Stated Complaint: Altered Mental Status Time Seen by Provider: 06/05/17 14:51 Source: family, EMS, RN notes reviewed, old records reviewed Mode of arrival: EMS Limitations: altered mental status, physical limitation - History of Present Illness Initial Comments: This is a 81-year-old female history of diabetes muscle skull disorder osteoarthritis renal disease and admission earlier this year for syncope and collapse who apparently started complaining of shortness of breath. She had called her daughter and let her know that she could not breathe. EMS was FAMILY called. Patient was able to breathing she conversed with paramedics initially but she was found to become very bradycardic and started going into respiratory distress. During this part of the episode patient was intubated and placed on a pacemaker after atropine seemed to fail to increase her heart rate. She was still upon arrival trying to breathe with assistance with the bag. Pacemaker rhythm was an placed with some pulses noted. Upon moving the patient to the [facility] the patient did become pulseless. After was determined the patient appeared to be either extremely bradycardic or asystolic Asystolic protocol was begun. This proceeded for a period time. Pulses were obtained as well as blood pressure for a period of time. The patient CODE STATUS immediately was not known. - Related Data Home Medications Medication Instructions Recorded Confirmed Simvastatin [Zocor] 10 mg PO HS 04/06/16 06/05/17 Timolol 0.5% Ophth Soln [Timoptic 1 drop BOTH EYES BID 04/06/16 06/05/17 0.5% Ophth Soln] Insulin NPH Hum/Reg Insulin Hm 30 unit SQ DAILY@1600 10/13/16 06/05/17 [NovoLIN 70-30 100 UNIT/ML VIAL] HYDROcodone/APAP 7.5-325MG [[place] 1 tab PO Q8H PRN 04/11/17 06/05/17 7.5-325] Insulin NPH/Reg Insulin 70/30 26 unit SQ BID@0700,1200 04/11/17 06/05/17 [humuLIN 70/30 VIAL] Lisinopril [Zestril] 5 mg PO QAM 04/11/17 06/05/17 Metoprolol Tartrate [Lopressor] 50 mg PO HS 08/29/17 08/29/17 Previous Rx's Medication Instructions Recorded Cyclobenzaprine [Flexeril] 5 mg PO TID PRN #21 tab 12/04/16 Hydrochlorothiazide [Hydrodiuril] 25 mg PO DAILY tab 12/04/16 amLODIPine [Norvasc] 5 mg PO DAILY tab 12/05/16 Allergies Allergy/AdvReac Type Severity Reaction Status Date / Time Iodine and Iodide Containing Allergy Rash/Hives Verified 06/05/17 15:26 Produc Review of Systems ROS Statement: Those systems with pertinent positive or pertinent negative responses have been documented in the HPI. Limitations: ROS unobtainable due to patients medical condition Past Medical History Past Medical History: Diabetes Mellitus, Eye Disorder, Musculoskeletal Disorder , Osteoarthritis (OA), Renal Disease Additional Past Medical History / Comment(s): BACK PAIN WITH RADIATION , herniated discs, IDDM type II, CKD stage III, slight cardiac murmur, seasonal allergies, arthritis multiple joints. History of Any Multi-Drug Resistant Organisms: None Reported Past Surgical History: Back Surgery, Bladder Surgery, Hysterectomy, Orthopedic Surgery Additional Past Surgical History / Comment(s): mariela cataracts with lens implant, rt. thumb and wrist surgery, teeth removed, carpal tunnel surg. left and right, cervical fusion, multiple pain clinic procedures. Past Anesthesia/Blood Transfusion Reactions: No Reported Reaction Past Psychological History: No Psychological Hx Reported Smoking Status: Never smoker Past Alcohol Use History: None Reported Past Drug Use History: None Reported - Past Family History Mother History Unknown: Yes Family Medical History: No Reported History Father Family Medical History: Diabetes Mellitus General Exam - General Exam Comments Initial Comments: This a well-developed well-nourished unresponsive patient who initially was noted to be assisting with breathing but later not Limitations: altered mental status, physical limitation Head exam: Present: atraumatic, normocephalic Eye exam: Present: other (January 11 at about 2 mm bilaterally and reactive) ENT exam: Present: other (Oral tracheal tube in place) Neck exam: Present: normal inspection. Absent: lymphadenopathy Respiratory exam: Present: decreased breath sounds Cardiovascular Exam: Present: bradycardia GI/Abdominal exam: Present: soft, normal bowel sounds. Absent: distended, tenderness, guarding, rebound, rigid Rectal exam: Present: deferred Extremities exam: Absent: normal capillary refill Back exam: Present: normal inspection Neurological exam: Present: other (Unresponsive) Psychiatric exam: Present: other (Unresponsive) Skin exam: Present: pallor Course Vital Signs 06/05/17 06/05/17 06/05/17 14:54 15:31 15:36 Pulse Rate 70 122 H 58 L Respiratory 10 L Rate Blood Pressure 129/63 - Reevaluation(s) Reevaluation #1: 06/05/17 17:21 Repeat EKG after the initial return of pulse and blood pressure showed a rate of 134 left bundle-branch block pattern QRS 166 daily since QTC of 350/522 EKG Findings - EKG Results: EKG: interpreted by ERMD (Initial EKG showed a bradycardic rhythm with a rate of 25 QRS of 82 QT since QTC of 532/343 this was a poor tracing.) Medical Decision Making - Medical Decision Making The patient went back into the bradycardic and asystolic rhythm and at one point did prior to this go into a wide-complex tachycardia with no pulse. A single shock was performed the patient went from that to flat line. ACLS was continued. During this time I was able to discuss the findings with family who did notify me that the patient was no code per her request. The efforts were ceased the patient succumbed shortly thereafter with asystole. Patient was pronounced at 1550 3 PM. I did discuss the case with Dr. Stinson it 1616 p.m. and with the medical professionals's office at 1630 7 PM. Patient's body was released to the family. - Lab Data Lab Results 06/05/17 Range/Units 15:34 POC Glucose (mg/dL) 466 H (75-99) mg/dL POC Glu Sociology Instructor ID Anne Gruber - Radiology Data Radiology results: report reviewed (Initial x-ray showed the intubation to be in the right mainstem this was withdrawn to inadequate location which I did review. There was evidence of increased interstitial infiltrate on the x-ray. The neurovascular tube appeared to be in proper position.), image reviewed Critical Care Time Critical Care Time: Yes Critical Care Time: 49 minutes of critical care time which includes monitoring initially EMS run and discussed with paramedics. History physical. ACLS and resuscitative efforts. Multiple discussions with the patient's family members. Review of old charting discussion with the attending physician. Discussed with the medical professionals's office and documentation of the above. Disposition Clinical Impression: Sudden cardiac , Acute respiratory failure Disposition: Referrals: Josh Brink MD [Primary Care Provider] - 1-2 days Preliminary Cause of : Sudden cardiac
== END 2017-06-05 17:46 | disposition expired ==
LOC: EC 14:51
DX: J96.00 Acute respiratory failure, unspecified whether with hypoxia or hypercapnia (principal); E11.22 Type 2 diabetes mellitus with diabetic chronic kidney disease; N18.3 Chronic kidney disease, stage 3 (moderate); Z98.1 Arthrodesis status; Z79.4 Long term (current) use of insulin; Z79.899 Other long term (current) drug therapy; Z91.048 Other nonmedicinal substance allergy status
CPT/HCPCS: 99291 ×2; 43753; 36415; 94002; 93005; 71010; J0461; J0171